=== PATIENT | female | born 1970 | race Caucasian/White ===

== ENCOUNTER 2016-12-05 12:46 | Emergency (ER) | payer MEDICARE, MEDICAID ==
[2016-12-05 12:55] VITALS: BP 180/85
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
[2016-12-05] MEDS ORDERED: HYDROCODONE/ACETAMINOPHEN 5-325 MG TABLET PO ONE ×2 (14:02→16:00)
--- NOTE | 2016-12-05 16:44 | RADIOLOGY REPORT (SQ) ---
EXAM DESCRIPTION: HIP RIGHT AP/LATERAL; FOOT RIGHT COMPLETE; KNEE RIGHT 4 VIEWS COMPLETED DATE/TIME: 12/05/2016 4:35 pm REASON FOR STUDY: pain s/p fall COMPARISON: See below. FINDINGS: Two views right hip: AP pelvis and frog lateral right hip. Compared to 2014. Since that time, status post right hip replacement which looks intact. No pelvic fracture or bone lesion. The re is a portion of an IUD projecting over the pelvis. This probably represents a piece which broke o ff on retrieval. Previously, complete device was noted. Four views right knee: 2006 comparison. Chronic postoperative changes from previous tibial plateau repair, screws in the proximal tibia. No acute fracture. No joint effusion. Normal bone density. Three views right foot: No comparisons. Bones look mildly osteopenic. No displaced fracture. No di slocation, radiopaque foreign body or ankle joint effusion. IMPRESSION: 1. No acute fracture involving the right hip, right knee, right foot. Chronic changes a s above. 2. Foreign body projects over the pelvis which looks like a retained but incomplete portio n of an IUD. TECHNICAL DOCUMENTATION: JOB ID: [id number]
[2016-12-05] MEDS ORDERED: METHOCARBAMOL 500 MG TABLET PO ONE (16:58)
== END 2016-12-05 17:51 | disposition home or self-care (01) ==
LOC: ER 12:46
DX: S83.91XA Sprain of unspecified site of right knee, initial encounter (principal); S70.01XA Contusion of right hip, initial encounter; M25.561 Pain in right knee; W19.XXXA Unspecified fall, initial encounter; Z79.899 Other long term (current) drug therapy; F17.200 Nicotine dependence, unspecified, uncomplicated
CPT/HCPCS: 99283; 73630; 73502; 73564; L1830; A9270

== ENCOUNTER → 2016-12-05 | Outpatient (CLI) | payer MEDICARE, MEDICAID ==
--- NOTE | 2016-12-05 13:10 | RADIOLOGY REPORT (SQ) ---
EXAM DESCRIPTION: MRI LUMBAR SPINE WITHOUT COMPLETED DATE/TIME: 12/05/2016 12:29 pm REASON FOR STUDY: LOW BACK PAIN M54.5 LOW BACK PAIN COMPARISON: 10/29/2014. TECHNIQUE: Sagittal and Axial imaging includes T1, T2, STIR and gradient echo sequences. Coronal T2/ HASTE imaging. LIMITATIONS: None. FINDINGS: VISUALIZED UPPER ABDOMEN: Limited evaluation. No acute or suspicious findings suggested. SEGMENTATION: No transitional anatomy. The lowest well-developed disc space is labeled L5-S1. ALIGNMENT: Anatomic. VERTEBRAE: Intact. BONE MARROW: Normal. No marrow replacement or reactive changes. DISC SIGNAL: Normal. No significant abnormal signal or loss of height. POSTERIOR ELEMENTS: Generally intact. No pars defect evident. HARDWARE: None in the spine. CORD AND CONUS: Normal in size and signal intensity. Conus at the appropriate level. SOFT TISSUES: No aortic aneurysm seen. No bulky retroperitoneal adenopathy or mass. No paraspinal mas s or fluid. L1-L2: No significant spinal stenosis or exit foraminal stenosis. L2-L3: No significant spinal stenosis or exit foraminal stenosis. L3-L4: No significant disc bulge. Mild -moderate facet arthropathy. No significant spinal stenosis or exit foraminal stenosis. L4-L5: Minimal broad-based posterior annular bulge. Moderate facet arthropathy. Minimal spinal sten osis. No significant exit foraminal stenosis. L5-S1: No significant disc bulge. Moderate facet arthropathy. No significant spinal stenosis or exi t foraminal stenosis. LOWER THORACIC: Incompletely imaged. No stenosis seen. SACRUM: Visualized upper sacrum intact. OTHER: No other significant findings. IMPRESSION: STABLE CHRONIC CHANGES PRIMARILY DUE TO FACET ARTHROPATHY. NO SIGNIFICANT STENOSIS. NO IMPINGEMENT. TECHNICAL DOCUMENTATION: JOB ID: [id number]- All Rights Reserved
== END ==
LOC: RAD 11:45
PROVIDERS: ATTEND Neurological Surgery
DX: M54.16 Radiculopathy, lumbar region (principal)
CPT/HCPCS: 99283; 72148; 73630; 73502; 73564; L1830; A9270

== ENCOUNTER → 2017-05-24 | Day surgery (SDC) | payer MEDICARE, MEDICAID ==
[~2017-05-24] MED LIST: BUPIVACAINE HCL 0.5 % INJ/PF 30 ML SDV ONE; LIDOCAINE 1% INJ-PF (10 MG/ML) 30 ML SDV ONE; METHYLPREDNISOLONE ACETATE INJ 40 MG/1 ML ML ONE
[2017-05-24 14:53] LABS: FLUID APPEARANCE HAZY; FLUID COLOR LIGHT YELLOW; FLUID TYPE SYNOVIAL; FLUID VISCOSITY MODERATELY VISCOUS
--- NOTE | 2017-05-24 18:15 | RADIOLOGY REPORT (SQ) ---
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 TECHNIQUE: Fluoroscopic guided right hip aspiration. LIMITATIONS: None. PROCEDURE: After written consent and assessment were obtained, the patient was brought into the fluo roscopy room and placed supine on the table. The patient's right inguinal region was prepped in a st erile fashion and an entry site over the right hip was selected under live fluoroscopic guidance. The entry site was anesthetized with 6 mL of 1% lidocaine. A 22 gauge spinal needle was used to access the right hip joint. There is aspiration of 3 mL of clear yellow synovial fluid, sent for testing as per Dr. Huertas. The needle was removed and a sterile bandage was placed of the site. Specimens we re sent to the lab for testing. A fluoroscopic spot image was saved to PACS confirming right hip nee dle placement. Patient has a right hip replacement with acetabular component anchored with a single screw. FINDINGS: Right hip aspiration under fluoroscopic guidance yielded 3 mL of clear yellow synovial flu id, sent for testing as per the ordering physician. No immediate complications. IMPRESSION: Right hip aspiration under fluoroscopic guidance yielded 3 mL of clear yellow synovial f luid, sent for testing as per the ordering physician. COMMENT: Patient medication list reviewed: Yes- Quality ID# [id number]:Eligible professional attests to doc umenting in the medical record they obtained, updated, or reviewed the patient's current medications. . Quality ID [id number]: Final reports for procedures using fluoroscopy that document radiation exposure blu jesús, or exposure time and number of fluorographic images (if radiation exposure indices are not avail able) TECHNICAL DOCUMENTATION: JOB ID: [id number] [employer]- All Rights Reserved
== END ==
LOC: RAD 12:36
PROVIDERS: ATTEND Specialist
PROC: 0S993ZZ Drainage of Right Hip Joint, Percutaneous Approach (ICD-10-PCS; principal; 2017-05-24)
DX: Z96.641 Presence of right artificial hip joint (principal)
CPT/HCPCS: 87205; 87070; 89050; 87075; 20610; 77002; J3490; J1020

== ENCOUNTER 2017-06-15 18:02 | Emergency (ER) | payer MEDICARE, MEDICAID ==
[2017-06-15] MEDS ORDERED: ASPIRIN 81 MG TABLET, CHEWABLE PO ONE (18:03)
[2017-06-15 18:13] LABS: ABSOLUTE BASOPHILS # (AUTO) 0.1 10^3/uL (0.0-0.2); ABSOLUTE EOSINOPHILS # (AUTO) 0.1 10^3/uL (0.0-0.6); ABSOLUTE LYMPHOCYTES (AUTO) 2.4 10^3/uL (0.5-4.7); ABSOLUTE MONOCYTES (AUTO) 0.9 10^3/uL (0.1-1.4); ABSOLUTE NEUT (AUTO) 7.6 10^3/uL (1.7-8.2); BASOPHILS % (AUTO) 1.1 % (0-2); HEMATOCRIT 31.9 % (36.0-47.0); HEMOGLOBIN 10.1 g/dL (12.0-15.5); LYMPHOCYTES % (AUTO) 21.7 % (13-45); MEAN CORPUSCULAR HEMOGLOBIN 24.5 pg (27.0-33.4); MEAN CORPUSCULAR HGB CONC 31.7 g/dL (32.0-36.0); MEAN CORPUSCULAR VOLUME 77 fl (80-97); MONOCYTES % (AUTO) 8.3 % (3-13); PLATELET COUNT 481 10^3/uL (150-450); RED BLOOD COUNT 4.14 10^6/uL (3.72-5.28); RED CELL DISTRIBUTION WIDTH 18.5 % (11.5-14.0); SEGMENTED NEUTROPHILS % (AUTO) 67.9 % (42-78); TOTAL CELLS COUNTED % (AUTO) 100 %; WHITE BLOOD COUNT 11.2 10^3/uL (4.0-10.5)
[2017-06-15 18:33] LABS: ALANINE AMINOTRANSFERASE 21 U/L (9-52); ALBUMIN 3.8 g/dL (3.5-5.0); ALKALINE PHOSPHATASE 67 U/L (38-126); ANION GAP 10 (5-19); ASPARTATE AMINO TRANSFERASE 18 U/L (14-36); BILIRUBIN,DIRECT 0.6 mg/dL (0.0-0.4); BILIRUBIN,TOTAL 0.6 mg/dL (0.2-1.3); BLOOD UREA NITROGEN 7 mg/dL (7-20); CALCIUM 9.4 mg/dL (8.4-10.2); CARBON DIOXIDE 19 mmol/L (22-30); CHLORIDE 109 mmol/L (98-107); CREATINE KINASE 75 U/L (30-135); GLUCOSE 84 mg/dL (75-110); POTASSIUM 4.7 mmol/L (3.6-5.0); SODIUM 137.6 mmol/L (137-145); TOTAL PROTEIN 6.7 g/dL (6.3-8.2)
[2017-06-15 18:44] LABS: CREATINE KINASE MB 0.92 ng/mL (<4.55)
[2017-06-15 18:45] LABS: TROPONIN I < 0.012 ng/mL
--- NOTE | 2017-06-15 19:11 | RADIOLOGY REPORT (SQ) ---
EXAM DESCRIPTION: CHEST SINGLE VIEW COMPLETED DATE/TIME: 06/15/2017 6:56 pm REASON FOR STUDY: chest pain COMPARISON: 02/03/2017 EXAM PARAMETERS: NUMBER OF VIEWS: One view. TECHNIQUE: Single frontal radiographic view of the chest acquired. RADIATION DOSE: NA LIMITATIONS: None. FINDINGS: LUNGS AND PLEURA: No opacities, masses or pneumothorax. No pleural effusion. MEDIASTINUM AND HILAR STRUCTURES: No masses. Contour normal. HEART AND VASCULAR STRUCTURES: Heart normal in size. Normal vasculature. BONES: No acute findings. HARDWARE: None in the chest. OTHER: No other significant finding. IMPRESSION: NO ACUTE RADIOGRAPHIC FINDING IN THE CHEST. TECHNICAL DOCUMENTATION: JOB ID: [id number] [employer]- All Rights Reserved Reading location - IP/workstation name: [email or web address]
[2017-06-15] MEDS ORDERED: NORMAL SALINE 1000 ML 1,000 ML IV ONE ×2 (19:28→19:42)
[2017-06-15] MEDS ORDERED: LORAZEPAM INJ 2 MG/1 ML VIAL IV ONE (19:42)
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
--- NOTE | 2017-06-15 19:57 | EKG REPORT ---
SEVERITY:- ABNORMAL ECG - SINUS TACHYCARDIA NONSPECIFIC T ABNORMALITIES, INFERIOR LEADS : Confirmed by: Ismael Thompson MD 15-Jun-2017 19:57:04
[2017-06-15] MEDS ORDERED: FENTANYL CITRATE INJ/PF 100 MCG/2 ML AMPUL IV ONE (20:16)
[2017-06-15] MEDS ORDERED: ONDANSETRON HCL INJ/PF 4 MG/2 ML SDV IV ONE (20:17)
--- NOTE | 2017-06-15 22:30 | RADIOLOGY REPORT (SQ) ---
EXAM DESCRIPTION: CTA CHEST COMPLETED DATE/TIME: 06/15/2017 9:46 pm REASON FOR STUDY: chest pain, tachycardia, elevated heart rate COMPARISON: Chest radiograph 06/15/2017 TECHNIQUE: CT scan of the chest performed using helical scanning technique with dynamic intravenous contrast injection. Images reviewed with lung, soft tissue and bone windows. Reconstructed coronal and sagittal MPR images reviewed. Additional 3 dimensional post-processing performed to develop Maximal Intensity Projection images ([place] P). All images stored on PACS. All CT scanners at this facility use dose modulation, iterative reconstruction, and/or weight based d osing when appropriate to reduce radiation dose to as low as reasonably achievable (ALARA). [facility]: Dose Right [facility]: CareDose [facility]: Dose Right [facility]: Teradose 4D [facility]: Company CONTRAST TYPE AND DOSE: contrast/concentration: Isovue 370.00 mg/ml; Total Contrast Delivered: 100.0 ml; Total Saline Delivered: 40.0 ml Contrast bolus optimized for the pulmonary arteries. Not diagnostic for the aorta. RENAL FUNCTION: BUN 7 creatinine 0.7 RADIATION DOSE: CT Rad equipment meets quality standard of care and radiation dose reduction techniq ues were employed. CTDIvol: 4.7 - 18.8 mGy. DLP: 547 mGy-cm. . LIMITATIONS: None. FINDINGS: LUNGS AND PLEURA: There are 2 contiguous pleural opacities in the left upper lobe anterior ly. The more cephalad measures 17 mm at the pleural surface. The large measures 25 mm. AORTA AND GREAT VESSELS: No aneurysm. Contrast bolus not optimized for the aorta. HEART: No pericardial effusion. No significant coronary artery calcifications. PULMONARY ARTERIES: No emboli visualized in the main pulmonary arteries or the segmental branches. HILAR AND MEDIASTINAL STRUCTURES: No identified masses or abnormal nodes. HARDWARE: None in the chest. UPPER ABDOMEN: No significant findings. Limited exam. THYROID AND OTHER SOFT TISSUES: No masses. No adenopathy. BONES: No acute or significant finding. 3D MIPS: Confirm above findings. OTHER: No other significant finding. IMPRESSION: 1. There is no evidence of pulmonary embolus. 2. There are 2 areas of opacity in the left upper lobe anteriorly contiguous with the pleural surfac e. These may represent limited areas of consolidation. Neoplasm cannot be excluded. COMMENT: Quality ID # [id number]: Final reports with documentation of one or more dose reduction techniques (e.g., Automated exposure control, adjustment of the mA and/or kV according to patient size, use of iterative reconstruction technique) TECHNICAL DOCUMENTATION: JOB ID: [id number] [employer]- All Rights Reserved Reading location - IP/workstation name: [email or web address]
[2017-06-15] MEDS ORDERED: LEVOFLOXACIN 750 MG TABLET PO ONE (23:02)
[2017-06-15] MEDS ORDERED: MORPHINE SULFATE IR 15 MG TABLET PO ONE (23:02)
[2017-06-15 23:26] VITALS: BP 149/83
== END 2017-06-15 23:30 | disposition home or self-care (01) ==
LOC: ER 18:02
DX: R07.9 Chest pain, unspecified (principal); F17.200 Nicotine dependence, unspecified, uncomplicated; F41.9 Anxiety disorder, unspecified; I50.9 Heart failure, unspecified; I25.10 Atherosclerotic heart disease of native coronary artery without angina pectoris; E78.00 Pure hypercholesterolemia, unspecified; I10 Essential (primary) hypertension; E11.9 Type 2 diabetes mellitus without complications; I25.2 Old myocardial infarction; Z98.84 Bariatric surgery status; Z90.49 Acquired absence of other specified parts of digestive tract
CPT/HCPCS: 93005; 99285; 96361; 96374; 96375; 36415; 82553; 82550; 85025; 80053; 84484; 85379; 71045; 71275; 93010; J3010; J2405; J7030; A9270 ×2

== ENCOUNTER 2017-06-24 14:45 | Emergency (ER) | payer MEDICARE ==
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
[2017-06-24 16:27] VITALS: BP 125/85
--- NOTE | 2017-06-24 21:56 | EKG REPORT ---
SEVERITY:- NORMAL ECG - SINUS RHYTHM : Confirmed by: Hammad Chapa 24-Jun-2017 21:56:09
== END 2017-06-24 16:26 | disposition home or self-care (01) ==
LOC: ER 14:45
DX: R07.9 Chest pain, unspecified (principal); F17.200 Nicotine dependence, unspecified, uncomplicated; I50.9 Heart failure, unspecified; I25.10 Atherosclerotic heart disease of native coronary artery without angina pectoris; E78.00 Pure hypercholesterolemia, unspecified; I10 Essential (primary) hypertension; E11.9 Type 2 diabetes mellitus without complications; I25.2 Old myocardial infarction; Z98.84 Bariatric surgery status
CPT/HCPCS: 93005; 93010; 99284

== ENCOUNTER → 2017-06-24 | Outpatient (CLI) | payer MEDICAID, MEDICARE ==
--- NOTE | 2017-06-24 16:37 | RADIOLOGY REPORT (SQ) ---
EXAM DESCRIPTION: CT CHEST WITH COMPLETED DATE/TIME: 06/24/2017 2:28 pm REASON FOR STUDY: LUNG MASS (R91.8) R91.8 OTHER NONSPECIFIC ABNORMAL FINDING OF LUNG FIELD COMPARISON: 06/15/2017 TECHNIQUE: CT scan of the chest performed using helical scanning technique with dynamic intravenous contrast injection. Images reviewed with lung, soft tissue and bone windows. Reconstructed coronal and sagittal MPR images reviewed. All images stored on PACS. All CT scanners at this facility use dose modulation, iterative reconstruction, and/or weight based d osing when appropriate to reduce radiation dose to as low as reasonably achievable (ALARA). [facility]: Dose Right [facility]: CareDose [facility]: Dose Right [facility]: Teradose 4D [facility]: [employer] CONTRAST TYPE AND DOSE: contrast/concentration: Isovue 370.00 mg/ml; Total Contrast Delivered: 80.0 ml; Total Saline Delivered: 55.0 ml RENAL FUNCTION: BUN 11 creatinine 0.76 RADIATION DOSE: CT Rad equipment meets quality standard of care and radiation dose reduction techniq ues were employed. CTDIvol: 17.4 mGy. DLP: 649 mGy-cm. . LIMITATIONS: None. FINDINGS: LUNGS AND PLEURA: The pleura based opacities seen in the left upper lobe anteriorly on the earlier study from June 15 are less prominent currently, but there is residual opacification pres ent. No other infiltrates or masses are seen. HILAR AND MEDIASTINAL STRUCTURES: No identified masses or abnormal nodes. HEART AND VASCULAR STRUCTURES: No aneurysm or dissection. No central pulmonary emboli. No pericardi al effusion. HARDWARE: None in the chest. UPPER ABDOMEN: No significant findings. Limited exam. THYROID AND OTHER SOFT TISSUES: No masses. No adenopathy. BONES: No significant finding. OTHER: No other significant finding. IMPRESSION: There is improvement of the pleural densities present on the earlier study, suggesting a n inflammatory/ infectious etiology. Follow-up as clinically indicated. TECHNICAL DOCUMENTATION: JOB ID: [id number] Quality ID # [id number]: Final reports with documentation of one or more dose reduction techniques (e.g., Au tomated exposure control, adjustment of the mA and/or kV according to patient size, use of iterative reconstruction technique) 2010 [employer]- All Rights Reserved Reading location - IP/workstation name: [email or web address]
== END ==
LOC: RAD 13:32
PROVIDERS: ATTEND Physician Assistant Medical
DX: R91.8 Other nonspecific abnormal finding of lung field (principal)
CPT/HCPCS: 71260

== ENCOUNTER 2017-08-07 22:32 | Emergency (ER) | payer MEDICARE, MEDICAID ==
[2017-08-07] MEDS ORDERED: ASPIRIN 81 MG TABLET, CHEWABLE PO ONE (22:35)
--- NOTE | 2017-08-07 23:16 | RADIOLOGY REPORT (SQ) ---
EXAM DESCRIPTION: CHEST SINGLE VIEW COMPLETED DATE/TIME: 08/07/2017 11:08 pm REASON FOR STUDY: chest pain COMPARISON: In June 2012 EXAM PARAMETERS: NUMBER OF VIEWS: One view. TECHNIQUE: Single frontal radiographic view of the chest acquired. RADIATION DOSE: NA LIMITATIONS: None. FINDINGS: LUNGS AND PLEURA: No opacities, masses or pneumothorax. No pleural effusion. MEDIASTINUM AND HILAR STRUCTURES: No masses. Contour normal. HEART AND VASCULAR STRUCTURES: Heart normal in size. Normal vasculature. BONES: No acute findings. HARDWARE: None in the chest. OTHER: No other significant finding. IMPRESSION: NO ACUTE RADIOGRAPHIC FINDING IN THE CHEST. TECHNICAL DOCUMENTATION: JOB ID: [id number] [employer]- All Rights Reserved Reading location - IP/workstation name: [email or web address]
[2017-08-07] MEDS ORDERED: LIDOCAINE 5% (700 MG) TRANSDERMAL ADH..PATCH TP ONE (23:48)
[2017-08-07] MEDS ORDERED: KETOROLAC TROMETHAMINE INJ/PF 30 MG/1 ML SDV IV ONE (23:57)
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
[2017-08-08 00:39] LABS: ABSOLUTE EOSINOPHILS # (AUTO) 0.2 10^3/uL (0.0-0.6); ABSOLUTE LYMPHOCYTES (AUTO) 2.7 10^3/uL (0.5-4.7); ABSOLUTE MONOCYTES (AUTO) 0.5 10^3/uL (0.1-1.4); ABSOLUTE NEUT (AUTO) 3.8 10^3/uL (1.7-8.2); BASOPHILS % (AUTO) 0.5 % (0-2); EOSINOPHILS % (AUTO) 2.7 % (0-6); HEMATOCRIT 30.5 % (36.0-47.0); HEMOGLOBIN 9.8 g/dL (12.0-15.5); LYMPHOCYTES % (AUTO) 37.9 % (13-45); MEAN CORPUSCULAR HGB CONC 32.1 g/dL (32.0-36.0); MEAN CORPUSCULAR VOLUME 78 fl (80-97); MONOCYTES % (AUTO) 6.8 % (3-13); PLATELET COUNT 515 10^3/uL (150-450); RED BLOOD COUNT 3.92 10^6/uL (3.72-5.28); RED CELL DISTRIBUTION WIDTH 21.2 % (11.5-14.0); SEGMENTED NEUTROPHILS % (AUTO) 52.1 % (42-78); TOTAL CELLS COUNTED % (AUTO) 100 %; WHITE BLOOD COUNT 7.3 10^3/uL (4.0-10.5)
[2017-08-08 00:52] LABS: ALANINE AMINOTRANSFERASE 24 U/L (9-52); ALBUMIN 3.6 g/dL (3.5-5.0); ALKALINE PHOSPHATASE 70 U/L (38-126); ANION GAP 14 (5-19); ASPARTATE AMINO TRANSFERASE 17 U/L (14-36); BILIRUBIN,DIRECT 0.3 mg/dL (0.0-0.4); BILIRUBIN,TOTAL 0.3 mg/dL (0.2-1.3); BLOOD UREA NITROGEN 9 mg/dL (7-20); CALCIUM 9.6 mg/dL (8.4-10.2); CARBON DIOXIDE 19 mmol/L (22-30); CHLORIDE 112 mmol/L (98-107); GLUCOSE 87 mg/dL (75-110); POTASSIUM 4.5 mmol/L (3.6-5.0); SODIUM 144.8 mmol/L (137-145); TOTAL PROTEIN 6.3 g/dL (6.3-8.2)
[2017-08-08 02:22] VITALS: BP 132/73
--- NOTE | 2017-08-08 10:30 | EKG REPORT ---
SEVERITY:- BORDERLINE ECG - SINUS RHYTHM BORDERLINE T WAVE ABNORMALITIES : Confirmed by: Hammad Chapa 08-Aug-2017 10:29:01
== END 2017-08-08 02:00 | disposition home or self-care (01) ==
LOC: ER 22:32
DX: M25.552 Pain in left hip (principal); G89.4 Chronic pain syndrome; R07.9 Chest pain, unspecified; F41.9 Anxiety disorder, unspecified; I25.10 Atherosclerotic heart disease of native coronary artery without angina pectoris; I10 Essential (primary) hypertension; I25.2 Old myocardial infarction; E11.9 Type 2 diabetes mellitus without complications; Z79.899 Other long term (current) drug therapy; F17.200 Nicotine dependence, unspecified, uncomplicated
CPT/HCPCS: 93005; 99284; 36415; 85025; 80053; 84484; 71045; 93010; J1885

== ENCOUNTER 2017-08-14 09:50 | Inpatient (IN) | payer MEDICARE, MEDICAID ==
[2017-08-14] MEDS ORDERED: KETOROLAC TROMETHAMINE 60 MG/2 ML SDV IM ONE (10:25)
[2017-08-14] MEDS ORDERED: DEXAMETHASONE SOD PHOS INJ 10 MG/1 ML VIAL IM ONE (10:25)
[2017-08-14] MEDS ORDERED: CLONAZEPAM 1 MG TABLET PO ONE (10:25)
[2017-08-14] MEDS ORDERED: LIDOCAINE 5% (700 MG) TRANSDERMAL ADH..PATCH TP ONE (10:26)
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
[2017-08-14 10:49] LABS: ABSOLUTE BASOPHILS # (AUTO) 0.1 10^3/uL (0.0-0.2); ABSOLUTE EOSINOPHILS # (AUTO) 0.3 10^3/uL (0.0-0.6); ABSOLUTE LYMPHOCYTES (AUTO) 2.2 10^3/uL (0.5-4.7); ABSOLUTE MONOCYTES (AUTO) 0.6 10^3/uL (0.1-1.4); ABSOLUTE NEUT (AUTO) 3.8 10^3/uL (1.7-8.2); BASOPHILS % (AUTO) 1.3 % (0-2); EOSINOPHILS % (AUTO) 4.6 % (0-6); HEMATOCRIT 32.8 % (36.0-47.0); HEMOGLOBIN 10.5 g/dL (12.0-15.5); LYMPHOCYTES % (AUTO) 31.6 % (13-45); MEAN CORPUSCULAR HEMOGLOBIN 25.3 pg (27.0-33.4); MEAN CORPUSCULAR VOLUME 79 fl (80-97); MONOCYTES % (AUTO) 8.7 % (3-13); PLATELET COUNT 442 10^3/uL (150-450); RED BLOOD COUNT 4.14 10^6/uL (3.72-5.28); RED CELL DISTRIBUTION WIDTH 22.1 % (11.5-14.0); SEGMENTED NEUTROPHILS % (AUTO) 53.8 % (42-78); TOTAL CELLS COUNTED % (AUTO) 100 %
[2017-08-14 10:51] LABS: ALANINE AMINOTRANSFERASE 25 U/L (9-52); ALBUMIN 3.8 g/dL (3.5-5.0); ALKALINE PHOSPHATASE 77 U/L (38-126); ANION GAP 18 (5-19); ASPARTATE AMINO TRANSFERASE 15 U/L (14-36); BILIRUBIN,DIRECT 0.3 mg/dL (0.0-0.4); BILIRUBIN,TOTAL 0.3 mg/dL (0.2-1.3); BLOOD UREA NITROGEN 6 mg/dL (7-20); CALCIUM 9.7 mg/dL (8.4-10.2); CARBON DIOXIDE 18 mmol/L (22-30); CHLORIDE 107 mmol/L (98-107); GLUCOSE 73 mg/dL (75-110); POTASSIUM 4.6 mmol/L (3.6-5.0); SALICYLATE 1.8 mg/dL (2.0-20.0); SODIUM 142.6 mmol/L (137-145); TOTAL PROTEIN 6.6 g/dL (6.3-8.2)
[2017-08-14 10:56] LABS: ACETAMINOPHEN < 10 ug/mL (10-30); ALCOHOL < 10 mg/dL (NONE DETECTED)
--- NOTE | 2017-08-14 11:43 | RADIOLOGY REPORT (SQ) ---
EXAM DESCRIPTION: HIP LEFT AP/LATERAL COMPLETED DATE/TIME: 08/14/2017 11:33 am REASON FOR STUDY: pain COMPARISON: None. NUMBER OF VIEWS: Two views. TECHNIQUE: AP pelvis and additional frog-leg view of the left hip. LIMITATIONS: None. FINDINGS: MINERALIZATION: Normal. LEFT HIP: Lateral subluxation/ dislocation of the femoral head with chronic deformity and fragmentati on. Bony fragments in the acetabular fossa suggesting old fracture. RIGHT HIP: Total hip replacement. PUBIS AND ISCHIUM: No fracture. PELVIS: No fracture. SACRUM: No fracture or dislocation. No worrisome bone lesions. LOWER LUMBAR SPINE: No fracture or dislocation. No worrisome bone lesions. No significant disc disea se. SOFT TISSUES: No findings. OTHER: No other significant finding. IMPRESSION: Severe end-stage degenerative changes with chronic lateral subluxation/dislocation of th e femoral head, fragmentation, extensive cystic change of the femoral head, and bony fragment suggest ing prior fracture within the acetabulum. TECHNICAL DOCUMENTATION: JOB ID: [id number] 1989 [employer]- All Rights Reserved Reading location - IP/workstation name: [email or web address]
[2017-08-14] MEDS ORDERED: HYDROMORPHONE HCL INJ/PF 2 MG/ML AMPULE IV ONE (11:56)
--- NOTE | 2017-08-14 13:30 | PSYCHOLOGICAL NOTE ---
Psych Note - Psych Note Psych Note: Reason for consult: Suicidal ideation Contact Permissions: Patient's son Farhan Humphrey and patient's ex Timothy Humphrey [phone] Patient is a 47-year-old female. Patient reports that she made the comments about not wanting to live anymore because of the physical pain she is experiencing. Patient reports what she meant was that she would rather have a new body and not be in the body that she is in because she is experiencing a lot of pain. Patient reports that she currently has anxiety and is prescribed Klonopin 1 mg 4 times a day and prior to that in 2013 she was prescribed Xanax but no longer takes those. Patient reports the provider who takes care of her psychiatric needs are Dr. Maradiaga. Patient reports that she does not have a gun in the home. Patient reports that all the comments she has made are related to her pain. Patient reports that 3 years ago she tried to OD with alcohol and any kind of pills because she was not in the right state of mind. Patient reports that her parents from cancer. Patient reports that if all of her medical needs are met then she would not feel like dying. Patient reports that the surgeon would not perform the hip replacement last week and they allowed her to go a week in pain so she was frustrated and made those comments. Patient reports that she felt people thought she was pill seeking but she cannot fake a dislocated hip. Patient reports she has a social sciences chair that is helping her as she lives alone with 2 dogs and they are being checked in on by the social sciences chair. Patient reports that she was hospitalized by [facility] in 2006 for opiate withdrawal due to abruptly stopping opiate use. Clinician's nurse practitioner stated patient does have a small fracture and dislocated hip and will receive surgery in the OR tomorrow 08/15/2017. Diagnosis: Per history 300.00 (F41.9) Unspecified Anxiety Disorder ( reported by patient) Impression/Plan: Patient is psychiatrically cleared. Recommendation to follow up with patient's provider for psychiatric needs. Please re-consult if needed. Clinician observed patient is currently experiencing pain due to having medical needs such as her fractured hip and dislocation of the hip ( reported by medical staff). Clinician observed patient does not have a intent, plan, or access regarding suicidal ideation. Comments were made out of frustration. Attending physician in agreement with disposition and plan. Consulted with Dr. Garrett regarding the management and care of patient.
--- NOTE | 2017-08-14 13:39 | RADIOLOGY REPORT (SQ) ---
EXAM DESCRIPTION: CHEST SINGLE VIEW COMPLETED DATE/TIME: 08/14/2017 1:19 pm REASON FOR STUDY: admission, pre op COMPARISON: 08/07/2017 NUMBER OF VIEWS: One view. TECHNIQUE: Single frontal radiographic view of the chest acquired. LIMITATIONS: None. FINDINGS: LUNGS AND PLEURA: No opacities, masses or pneumothorax. No pleural effusion. MEDIASTINUM AND HILAR STRUCTURES: No masses. Contour normal. HEART AND VASCULAR STRUCTURES: Heart enlarged without failure. Normal vasculature. BONES: No acute findings. HARDWARE: None in the chest. OTHER: No other significant finding. IMPRESSION: HEART ENLARGED WITHOUT FAILURE. NO OTHER SIGNIFICANT RADIOGRAPHIC FINDING IN THE CHEST. TECHNICAL DOCUMENTATION: JOB ID: [id number] [employer]- All Rights Reserved Reading location - IP/workstation name: [email or web address]
[2017-08-14] MEDS: MORPHINE SULFATE 10 MG/ML INJ IV PRN ×4 (14:55→23:09)
[2017-08-14] MEDS: ONDANSETRON HCL INJ/PF 4 MG/2 ML SDV IV PRN ×2 (14:56→17:33)
--- NOTE | 2017-08-14 15:54 | EKG REPORT ---
SEVERITY:- BORDERLINE ECG - SINUS RHYTHM BORDERLINE T ABNORMALITIES, DIFFUSE LEADS : Confirmed by: Ismael Thompson MD 14-Aug-2017 15:53:38
[2017-08-14 16:02] LABS: APPEARANCE,URINE CLEAR; BILIRUBIN,URINE NEGATIVE (NEGATIVE); COLOR,URINE YELLOW; GLUCOSE, URINE NEGATIVE (NEGATIVE); KETONES,URINE 80 mg/dL (NEGATIVE); LEUKOCYTE ESTERASE,URINE NEGATIVE (NEGATIVE); NITRITE,URINE NEGATIVE (NEGATIVE); PROTEIN,URINE NEGATIVE (NEGATIVE); URINE SPECIFIC GRAVITY 1.021
[2017-08-14 16:17] LABS: URINE AMPHETAMINES SCREEN NEGATIVE; URINE BARBITURATES SCREEN NEGATIVE; URINE COCAINE SCREEN NEGATIVE; URINE METHADONE SCREEN NEGATIVE; URINE PHENCYCLIDINE SCREEN NEGATIVE
[2017-08-14 16:22] LABS: URINE BENZODIAZEPINES SCREEN UNCONFIRMED POSITIVE; URINE MARIJUANA (THC) SCREEN UNCONFIRMED POSITIVE
--- NOTE | 2017-08-14 17:17 | PDOC H&P ---
History of Present Illness Admission Date/PCP: 08/14/17 13:14 History of Present Illness: JOSUÉ MARIN is a 47 year old female The patient is a 47-year-old white female with a complicated past medical history including myocardial infarction 2016, questionable diagnosis of pulmonary embolism, questionable diagnosis of pulmonary masses, pain management issues, and a 2 week history of progressive left hip pain and functional disability. Patient was to being taken care of by emerge or so in [place]. It is unclear to me why she presented to the [place] emergency room rather than being transported to [place] to be taken care by Dr. Huertas. Regardless she presents the emergency room unable to bear weight. She is admitted for further evaluation with an anticipated orthopedic procedure to alleviate her left hip pain. Past Medical History Cardiac Medical History: Reports: Congestive Heart Failure, Coronary Artery Disease, Myocardial Infarction, Hyperlipidema, Hypertension Pulmonary Medical History: Reports: Bronchitis, Pneumonia Neurological Medical History: Reports: Migraine, Seizures Endocrine Medical History: Reports: Diabetes Mellitus Type 2 GI Medical History: Reports: Diverticulitis, Gastroesophageal Reflux Disease Musculoskeltal Medical History: Reports: Arthritis Psychiatric Medical History: Reports: Depression, Post Traumatic Stress Disorder , Substance Abuse Hematology: Reports: Anemia Past Surgical History Past Surgical History: Reports: Cardiac Catheterization - Feb 2010-stent, Feb 2011-told 2 vessels had narrowing, no stent, Cholecystectomy, Coronary Stent - February,, Gastric Bypass Surgery, Herniorrhaphy, Orthopedic Surgery - Bilat knee fx. right hip. Social History Information Source: Patient, [facility] Records Smoking Status: Current Every Day Smoker Frequency of Alcohol Use: None Hx Recreational Drug Use: No Drugs: Marijuana Hx Prescription Drug Abuse: No Family History Family History: CAD Parental Family History Reviewed: No Children Family History Reviewed: No Sibling(s) Family History Reviewed.: No Medication/Allergy Home Medications: Clonazepam [Klonopin 1 mg Tablet] 1 mg PO TID 02/03/17 Albuterol Sulfate [Ventolin HFA MDI 18 GM] 2 puff IH QID 08/14/17 Diclofenac Sodium [Voltaren 50 Mg Tablet.Dr] 50 mg PO QIDP PRN 08/14/17 Gabapentin [Neurontin 300 mg Capsule] 1,200 mg PO TID 08/14/17 Ipratropium/Albuterol Sulfate [Combivent Respimat 4 gm Mdi] 1 puff IH BID Sertraline HCl [Zoloft 50 mg Tablet] 50 mg PO DAILY 08/14/17 Allergies/Adverse Reactions: Antihistamines - Ethylenediamine Allergy (Intermediate, Verified 02/03/17 12:03) panic attack diphenhydramine HCl [From Benadryl] Adverse Reaction (Intermediate, Verified 04/21 12:03) "Keeps me up" Review of Systems All systems: as per H Physical Exam Vital Signs: Intake & Output 08/13/17 08/14/17 08/15/17 06:59 06:59 06:59 Weight 104.5 kg Physical Exam: The patient is an overweight middle-aged white female who is quite alert and interactive lying on ER gurney. Left lower extremity shortened and externally rotated. Passive range of motion lower extremities associated excruciating pain. Distal neurovascular examination is intact. General appearance: PRESENT: obese, severe distress Head exam: PRESENT: normocephalic Respiratory exam: PRESENT: unlabored Cardiovascular exam: PRESENT: RRR Pulses: PRESENT: +1 pedal pulses bilateral Vascular exam: PRESENT: normal capillary refill GI/Abdominal exam: PRESENT: soft Rectal exam: PRESENT: deferred Extremities exam: PRESENT: other - Left lower extremity shortened and externally rotated. Skin exam: PRESENT: dry, intact, warm. ABSENT: cyanosis, rash Results Laboratory Results: 08/14/17 15:42 Urine Color YELLOW Urine Appearance CLEAR Urine pH 6.0 Ur Specific [place] 1.021 Urine Protein NEGATIVE Urine Glucose (UA) NEGATIVE Urine Ketones 80 H Urine Blood NEGATIVE Urine Nitrite NEGATIVE Ur Leukocyte Esterase NEGATIVE Urine WBC (Auto) 1 Urine RBC (Auto) 0 Impressions: Hip X-Ray 08/14/17 10:29 IMPRESSION: Severe end-stage degenerative changes with chronic lateral subluxation/dislocation of the femoral head, fragmentation, extensive cystic change of the femoral head, and bony fragment suggesting prior fracture within the acetabulum. Chest X-Ray 08/14/17 12:51 IMPRESSION: HEART ENLARGED WITHOUT FAILURE. NO OTHER SIGNIFICANT RADIOGRAPHIC FINDING IN THE CHEST. Status: Image reviewed by me - X-ray of the pelvis and left hip demonstrate Ficot stage IV avascular necrosis Assessment & Plan - Diagnosis (1) Avascular necrosis of bone of left hip Is this a current diagnosis for this admission?: Yes Plan: 47-year-old female status post right hip arthroplasty in the past presumably for avascular necrosis now with left hip arthroplasty and associated pain and functional disability. Treatment for this would be hip replacement. The patient has a myriad of comorbidities and risk factors for surgery. Tentative plan will be to obtain hospitalist, pain management, cardiology consults and then reassess the patient's candidacy for surgery. - Time Time Spent: 50 to 70 Minutes Critical Time spent with patient: 15-24 minutes Anticipated discharge: Other Within: Other
[2017-08-14] MEDS ORDERED: NICOTINE 14 MG/24 HR PATCH.TD24 TD PRN (23:59)
[2017-08-15] MEDS: MORPHINE SULFATE 10 MG/ML INJ IV PRN ×8 (02:00→23:58)
[2017-08-15] MEDS: ONDANSETRON HCL INJ/PF 4 MG/2 ML SDV IV PRN (04:04)
--- NOTE | 2017-08-15 06:50 | PDOC PROGRESS REPORT ---
Subjective Progress Note for:: 08/15/17 Reason For Visit: CLOSED FRACTURE OF LEFT HIP,DISLOCATION OF LEFT The patient is a 47-year-old white female with a myriad of medical problems and now admission for left hip pain secondary to a Ficot stage 4 avascular necrosis. Physical Exam Vital Signs: Temp Pulse Resp BP Pulse Ox 36.3 C 81 18 134/70 H 95 08/14/17 23:12 08/14/17 23:12 08/14/17 23:12 08/14/17 23:12 08/14/17 23:12 Intake & Output 08/13/17 08/14/17 08/15/17 06:59 06:59 06:59 Intake Total 200 Output Total 325 Balance -125 Weight 98.9 kg General appearance: PRESENT: no acute distress Respiratory exam: PRESENT: unlabored Cardiovascular exam: PRESENT: RRR Pulses: PRESENT: +1 pedal pulses bilateral Vascular exam: PRESENT: normal capillary refill Results Laboratory Results: 08/14/17 15:42 Urine Color YELLOW Urine Appearance CLEAR Urine pH 6.0 Ur Specific [place] 1.021 Urine Protein NEGATIVE Urine Glucose (UA) NEGATIVE Urine Ketones 80 H Urine Blood NEGATIVE Urine Nitrite NEGATIVE Ur Leukocyte Esterase NEGATIVE Urine WBC (Auto) 1 Urine RBC (Auto) 0 Impressions: Hip X-Ray 08/14/17 10:29 IMPRESSION: Severe end-stage degenerative changes with chronic lateral subluxation/dislocation of the femoral head, fragmentation, extensive cystic change of the femoral head, and bony fragment suggesting prior fracture within the acetabulum. Chest X-Ray 08/14/17 12:51 IMPRESSION: HEART ENLARGED WITHOUT FAILURE. NO OTHER SIGNIFICANT RADIOGRAPHIC FINDING IN THE CHEST. Status: Imported from PACS Assessment & Plan - Diagnosis (1) Avascular necrosis of bone of left hip Is this a current diagnosis for this admission?: Yes Plan: 47-year-old white female status post right hip arthroplasty [facility] in 2014. She now has progressive pain and functional disability secondary to left hip avascular necrosis. Patient indicates a desire to return to [facility] for treatment of her left hip issues. I concur with that and with the need for continuity of care. Tentative plan will be to transfer the patient to [facility] when accepting physician has been identified. - Time Time Spent with patient: 15-24 minutes Anticipated discharge: [facility] Within: Other
[2017-08-15] MEDS ORDERED: CLONAZEPAM 1 MG TABLET PO SCH (10:00)
[2017-08-15] MEDS: CLONAZEPAM 1 MG TABLET PO SCH ×3 (10:47→18:44)
[2017-08-15] MEDS: SERTRALINE HCL 50 MG TABLET PO SCH (10:47)
[2017-08-15] MEDS: GABAPENTIN 300 MG CAPSULE PO SCH ×3 (10:47→18:44)
[2017-08-15] MEDS ORDERED: GLUCAGON,HUMAN RECOMB 1 MG INJ SUBCUT PRN (15:00)
[2017-08-15] MEDS ORDERED: DEXTROSE 50%-WATER 25 GM/50 ML DISP.SYRIN IV PRN ×2 (15:00)
[2017-08-15] MEDS ORDERED: DEXTROSE 40% GEL 15 GM TUBE PO PRN ×2 (15:00)
--- NOTE | 2017-08-15 15:18 | PDOC CONSULTATION ---
Consultation Consult Date: 08/15/17 Attending physician:: LUIS ALBERTO JEAN Consult reason:: Follow-up cardiology care and for cardiology clearance History of Present Illness Admission Date/PCP: 08/14/17 13:14 Patient complains of: Bilateral hip pain History of Present Illness: JOSUÉ MARIN is a 47 year old female with a complicated past medical history including myocardial infarction 2016, questionable diagnosis of pulmonary embolism, questionable diagnosis of pulmonary masses, pain management issues, and a 2 week history of progressive left hip pain and functional disability. Patient was to being taken care of by emerge or so in [place]. It is unclear to me why she presented to the [place] emergency room rather than being transported to [place] to be taken care by Dr. Huertas. Regardless she presents the emergency room unable to bear weight. She is admitted for further evaluation with an anticipated orthopedic procedure to alleviate her left hip pain. Patient denied any chest pain. However she is not very physically active. Patient denies any shortness of breath. Previous cardiac evaluations reviewed. It seems patient did have a nuclear stress test later part of last year which was noted to show no ischemia but a small area of fixed defect. A 2D echocardiogram performed approximately 2 years ago had shown well preserved LVEF. Patient twelve-lead EKG shows sinus rhythm without any acute ST-T wave changes. Past Medical History Cardiac Medical History: Reports: Congestive Heart Failure, Coronary Artery Disease, Myocardial Infarction, Hyperlipidema, Hypertension Pulmonary Medical History: Reports: Bronchitis, Pneumonia Neurological Medical History: Reports: Migraine, Seizures Endocrine Medical History: Reports: Diabetes Mellitus Type 2 GI Medical History: Reports: Diverticulitis, Gastroesophageal Reflux Disease Musculoskeltal Medical History: Reports: Arthritis Psychiatric Medical History: Reports: Depression - anxiety, Post Traumatic Stress Disorder, Substance Abuse Hematology: Reports: Anemia Past Surgical History Past Surgical History: Reports: Cardiac Catheterization - Feb 2010-stent, Feb 2011-told 2 vessels had narrowing, no stent, Cholecystectomy, Coronary Stent - February,, Gastric Bypass Surgery, Herniorrhaphy, Orthopedic Surgery - Bilat knee fx. right hip. Social History Information Source: Patient Smoking Status: Current Every Day Smoker Cigarettes Packs Per Day: 1 Last Time Smoked: t Frequency of Alcohol Use: None Hx Recreational Drug Use: Yes Drugs: Marijuana Hx Prescription Drug Abuse: Yes - Advance Directive Resuscitation Status: Full Code Family History Family History: CAD Parental Family History Reviewed: Yes Children Family History Reviewed: Yes Sibling(s) Family History Reviewed.: Yes Medication/Allergy Home Medications: Clonazepam [Klonopin 1 mg Tablet] 1 mg PO TID 02/03/17 Albuterol Sulfate [Ventolin HFA MDI 18 GM] 2 puff IH QID 08/14/17 Diclofenac Sodium [Voltaren 50 Mg Tablet.Dr] 50 mg PO QIDP PRN 08/14/17 Gabapentin [Neurontin 300 mg Capsule] 1,200 mg PO TID 08/14/17 Ipratropium/Albuterol Sulfate [Combivent Respimat 4 gm Mdi] 1 puff IH BID Sertraline HCl [Zoloft 50 mg Tablet] 50 mg PO DAILY 08/14/17 Allergies/Adverse Reactions: Antihistamines - Ethylenediamine Allergy (Intermediate, Verified 02/03/17 12:03) panic attack diphenhydramine HCl [From Benadryl] Adverse Reaction (Intermediate, Verified 04/21 12:03) "Keeps me up" Review of Systems Review of Systems: Please see history of present illness and past medical history as wall. Constitutional: No fever or chills reported. Head : No recent chronic headaches, recent head injury. Eyes: No recent eye pain, diplopia, redness, discharge, acute visual changes. Ears: No recent chronic ear pain, acute hearing loss, ear discharge. Oral cavity: No recent ulcerations, bleeding, oral cavity discomfort. Neck: No recent acute neck pain reported. Hematologic: No recent easy bruising or bleeding. Lymphatic: No recent lymph node enlargement reported. Cardiovascular system review: See history of present illness. Respiratory system review: No hemoptysis or blood clots in the lungs reported. Mild Shortness of breath on exertion Gastrointestinal system review: Negative for any recent acute hematemesis, melena. Genitourinary system review: No recent acute or chronic hematuria, flank pain, UTI etc. reported. Skin system review: Negative for any recent abnormal bruising, no rash, no pruritus reported. Neurologic: No prior history of strokes, mini strokes, seizure disorder. Psychologic: No history of major psychosis or major depression reported. Musculoskeletal: Minor aches and pains reported. No acute joint swelling reported. Patient describes bilateral hip pain and difficulty with ambulation. Endocrine: No recent polyuria, polydipsia, recent heat or cold intolerance. Physical Exam Vital Signs: Temp Pulse Resp BP Pulse Ox 98.3 F 74 20 110/51 L 94 08/15/17 11:13 08/15/17 11:13 08/15/17 11:13 08/15/17 11:13 08/15/17 11:13 Intake & Output 08/14/17 08/15/17 08/16/17 06:59 06:59 06:59 Intake Total 270 Output Total 325 Balance -55 Weight 98.9 kg Exam: GENERAL: well-nourished and in no acute distress. Alert and oriented x3 HEAD: Atraumatic, normocephalic. EYES: Pupils equal round and reactive to light, extraocular movements intact, sclera anicteric, conjunctiva are normal. ENT: TMs normal, nares patent, oropharynx clear without exudates. Moist mucous membranes. No oral ulcerations or bleeding gums noted NECK: supple without lymphadenopathy. Trachea is central. No cervical or axillary lymphadenopathy noted. Carotids are 2+, JVD WNL LUNGS: Respiration seems nonlabored, no significant accessory muscle action noted. Breath sounds clear to auscultation bilaterally and equal noted. No wheezes rales or rhonchi noted. No significant dullness noted on percussion. CHEST: Palpation of the chest wall shows no significant chest wall tenderness. HEART: [place] INVENTORY CONTROL/SHIPPING RECEIVING, No PSH, 1/6 COCO aortic area, 1/6 pappas systolic murmur mitral area, no rubs, no gallops. ABDOMEN: Soft, no significant tenderness appreciated, normoactive bowel sounds. No guarding, no rebound. No rigidity noted . No masses appreciated. EXTREMITIES: Pedal pulses are 1-2+, no calf tenderness noted. No clubbing or cyanosis. negative pedal edema noted NEUROLOGICAL: Focused neurological exam showed no significant neurologic deficit. Normal speech, no focal weakness appreciated. PSYCH: Normal mood, normal affect. Judgment and insight within normal limits. SKIN: No significant ecchymosis, skin is noted to be warm. MUSCULOSKELETAL EXAM: No significant acute joint swelling noted. Results Laboratory Results: 08/14/17 15:42 Urine Color YELLOW Urine Appearance CLEAR Urine pH 6.0 Ur Specific [place] 1.021 Urine Protein NEGATIVE Urine Glucose (UA) NEGATIVE Urine Ketones 80 H Urine Blood NEGATIVE Urine Nitrite NEGATIVE Ur Leukocyte Esterase NEGATIVE Urine WBC (Auto) 1 Urine RBC (Auto) 0 EKG Comments: Sinus rhythm, no acute ST-T wave changes are noted. Impressions: Hip X-Ray 08/14/17 10:29 IMPRESSION: Severe end-stage degenerative changes with chronic lateral subluxation/dislocation of the femoral head, fragmentation, extensive cystic change of the femoral head, and bony fragment suggesting prior fracture within the acetabulum. Chest X-Ray 08/14/17 12:51 IMPRESSION: HEART ENLARGED WITHOUT FAILURE. NO OTHER SIGNIFICANT RADIOGRAPHIC FINDING IN THE CHEST. Assessment & Plan - Diagnosis (1) CAD (coronary artery disease) Qualifiers: Coronary Disease-Associated Artery/Lesion type: [place] artery [place] vs. transplanted heart: [place] heart Associated angina: angina presence unspecified Qualified Code(s): I25.10 - Atherosclerotic heart disease of [place] coronary artery without angina pectoris Is this a current diagnosis for this admission?: Yes (2) Avascular necrosis of bone of left hip Is this a current diagnosis for this admission?: Yes (3) Dyslipidemia Is this a current diagnosis for this admission?: Yes (4) Hypertension Qualifiers: Hypertension type: essential hypertension Qualified Code(s): I10 - Essential (primary) hypertension Is this a current diagnosis for this admission?: Yes (5) Tobacco abuse Is this a current diagnosis for this admission?: Yes (6) Preoperative cardiovascular examination Is this a current diagnosis for this admission?: Yes - Notes Notes: Coronary artery disease: Patient has known history of coronary artery disease. Patient not very physically active because of bilateral hip problems. Previous cardiac evaluations reviewed. Will start patient on statin therapy and beta- alexei therapy. Prior stress test from February of last year was reviewed. It was noted to be relatively unremarkable. Preoperative cardiovascular examination: Recommend starting patient on statin therapy, beta-alexei therapy. Dyslipidemia: Recommend statin therapy. Hypertension: Blood pressure goal is 135/85 or less. Beta-alexei, RODRIGO inhibitor and angiotensin receptor blockers are preferred agent. Tobacco abuse: Continue with nicotine patch. Patient advised on tobacco cessation. I am also told that patient is likely to be transferred. However if she stays here, will be happy to help with cardiovascular management in the meantime. Dr. Johnson to cover from tomorrow. - Time Time Spent: 30 to 50 Minutes - CODE STATUS was discussed, patient remains full code. Surrogate decision-maker unchanged. Multiple medical problems were addressed. More than 50% of the time spent coordinating care, discussing management plans with involved caregivers. Management plans discussed with involved personnels. Medical decision making was of moderate to high complexity , patient's has multiple comorbidities. Medications reviewed and adjusted accordingly: Yes
[2017-08-15] MEDS: ALBUTEROL SULFATE HFA (90 MCG/PUFF) 8 GM MDI (1 MDI/ER DISP) IH SCH ×3 (15:24→22:48)
[2017-08-15] MEDS: OXYCODONE-ACETAMINOPHEN 5-325 MG TABLET PO PRN ×2 (18:44→22:49)
[2017-08-15] MEDS: OXYCODONE HCL IR 5 MG TABLET PO PRN ×2 (18:44→22:50)
[2017-08-15] MEDS: METOPROLOL SUCCINATE 25 MG TAB.SR.24H PO SCH (21:03)
[2017-08-15] MEDS: ATORVASTATIN CALCIUM 20 MG TABLET PO SCH (21:03)
[2017-08-15] MEDS ORDERED: ALBUTEROL SULFATE HFA (90 MCG/PUFF) 200 PUFF/8.5 GM MDI IH ONE (21:21)
[2017-08-15] MEDS ORDERED: ATORVASTATIN CALCIUM 40 MG TABLET PO SCH (22:00)
[2017-08-16] MEDS: OXYCODONE HCL IR 5 MG TABLET PO PRN ×4 (03:47→17:26)
[2017-08-16] MEDS: OXYCODONE-ACETAMINOPHEN 5-325 MG TABLET PO PRN ×4 (03:48→17:25)
[2017-08-16] MEDS: MORPHINE SULFATE 10 MG/ML INJ IV PRN ×2 (06:12→14:39)
--- NOTE | 2017-08-16 06:50 | PDOC TRANSFER SUMMARY ---
General Admission Date/PCP: 08/14/17 13:14 Admission Date: 08/14/17 Transfer Date: 08/16/17 Accepting Facility: [facility] Resuscitation Status: Full Code - Transfer Diagnosis (1) Avascular necrosis of bone of left hip Is this a current diagnosis for this admission?: Yes - Transfer Medications Home Medications: Clonazepam [Klonopin 1 mg Tablet] 1 mg PO TID 02/03/17 Albuterol Sulfate [Ventolin HFA MDI 18 GM] 2 puff IH QID 08/14/17 Diclofenac Sodium [Voltaren 50 Mg Tablet.Dr] 50 mg PO QIDP PRN 08/14/17 Gabapentin [Neurontin 300 mg Capsule] 1,200 mg PO TID 08/14/17 Ipratropium/Albuterol Sulfate [Combivent Respimat 4 gm Mdi] 1 puff IH BID Sertraline HCl [Zoloft 50 mg Tablet] 50 mg PO DAILY 08/14/17 Transfer Medications: Current Medications Albuterol (Ventolin Hfa 8 Gm Mdi (1 Mdi/Er Disp)) 2 puff IH QID [facility] Stop: 09/14/17 09:59 Last Admin: 08/15/17 22:48 Dose: 2 puff Atorvastatin Calcium (Lipitor 20 Mg Tablet) 20 mg PO QHS [facility] Stop: 09/14/17 21:59 Last Admin: 08/15/17 21:03 Dose: 20 mg Clonazepam (Klonopin 1 Mg Tablet) 0.5 mg PO TID [facility] Stop: 08/22/17 09:59 Last Admin: 08/15/17 18:44 Dose: 0.5 mg Dextrose (Dextrose Inj 50% Syringe (25 Gm/50 Ml)) 12.5 gm IV PRN PRN; Protocol PRN Reason: FOR BG 50-69 IN ALERT PATIENT Stop: 09/14/17 14:59 Dextrose (Dextrose Inj 50% Syringe (25 Gm/50 Ml)) 25 gm IV PRN PRN; Protocol PRN Reason: See Label Comments Stop: 09/14/17 14:59 Gabapentin (Neurontin 300 Mg Capsule) 1,200 mg PO TID [facility] Stop: 09/14/17 09:59 Last Admin: 08/15/17 18:44 Dose: 1,200 mg Glucagon (Glucagen Inj 1 Mg Vial) 1 mg SUBCUT PRN PRN; Protocol PRN Reason: Evaluate for BG < 70 Stop: 09/14/17 14:59 Glucose (Glutose 40% Gel 15 Gm Tube) 15 gm PO PRN PRN; Protocol PRN Reason: For BG 50-69 in Alert Patient Stop: 09/14/17 14:59 Glucose (Glutose 40% Gel 15 Gm Tube) 30 gm PO PRN PRN; Protocol PRN Reason: FOR BG < 50 IN ALERT PATIENT Stop: 09/14/17 14:59 Metoprolol Succinate (Toprol Xl 25 Mg Tab.Sr) 12.5 mg PO Q12 BIMAL Stop: 09/14/17 21:59 Last Admin: 08/15/17 21:03 Dose: 12.5 mg Morphine Sulfate (Morphine 10 Mg/Ml Inj) 2 mg IV Q6HP PRN PRN Reason: FOR PAIN Stop: 08/21/17 14:47 Last Admin: 08/16/17 06:12 Dose: 2 mg Nicotine (Nicoderm 14 Mg/24 Hr Transdermal Patch) 1 each TD DAILYP PRN PRN Reason: WITHDRAWAL SYMPTOMS Stop: 09/13/17 23:58 Last Admin: 08/15/17 22:48 Dose: 1 each Ondansetron HCl (Zofran Inj/Pf 4 Mg/2 Ml Sdv) 4 mg IV Q2HP PRN PRN Reason: FOR NAUSEA/VOMITING Stop: 09/13/17 14:30 Last Admin: 08/15/17 04:04 Dose: 4 mg Oxycodone HCl (Oxy-Ir 5 Mg Tablet) 5 mg PO Q4HP PRN PRN Reason: PAIN Stop: 08/22/17 17:10 Last Admin: 08/16/17 03:47 Dose: 5 mg Oxycodone/Acetaminophen (Percocet 5-325 Mg Tablet) 1 tab PO Q4HP PRN PRN Reason: PAIN Stop: 08/22/17 17:09 Last Admin: 08/16/17 03:48 Dose: 1 tab Sertraline HCl (Zoloft 50 Mg Tablet) 50 mg PO DAILY BIMAL Stop: 09/14/17 09:59 Last Admin: 08/15/17 10:47 Dose: 50 mg - Allergies Allergies/Adverse Reactions: Antihistamines - Ethylenediamine Allergy (Intermediate, Verified 02/03/17 12:03) panic attack diphenhydramine HCl [From Benadryl] Adverse Reaction (Intermediate, Verified 04/21 12:03) "Keeps me up" Hospital Course Hospital Course: Patient was admitted through the emergency room to the orthopedic service for treatment of left hip pain subsequently diagnosed as Ficot IV avascular necrosis. Following admission the patient has indicated that she wishes to be transferred to [facility] where she had a previous contralateral hip arthroplasty [place] [address] Tsai. Physical Exam Vital Signs: Temp Pulse Resp BP Pulse Ox 36.6 C 69 17 126/58 H 92 08/15/17 23:50 08/15/17 23:50 08/15/17 23:50 08/15/17 23:50 08/15/17 23:50 Intake & Output 08/14/17 08/15/17 08/16/17 06:59 06:59 06:59 Intake Total 270 360 Output Total 325 925 Balance -55 -565 Weight 98.9 kg 100.2 kg General appearance: PRESENT: no acute distress, mild distress Head exam: PRESENT: normocephalic Respiratory exam: PRESENT: unlabored Cardiovascular exam: PRESENT: RRR Pulses: PRESENT: +1 pedal pulses bilateral Vascular exam: PRESENT: normal capillary refill GI/Abdominal exam: PRESENT: soft Rectal exam: PRESENT: deferred Musculoskeletal exam: PRESENT: other - Leg lengths are unequal. Passive range of motion of the left lower extremity results in significant pain. Distal neurovascular examination is intact. Neurological exam: PRESENT: alert, awake, oriented to person, oriented to place , oriented to time, oriented to situation. ABSENT: motor sensory deficit Psychiatric exam: PRESENT: appropriate affect, normal mood. ABSENT: homicidal ideation, suicidal ideation Skin exam: PRESENT: dry, intact, warm. ABSENT: cyanosis, rash Results Impressions: Hip X-Ray 08/14/17 10:29 IMPRESSION: Severe end-stage degenerative changes with chronic lateral subluxation/dislocation of the femoral head, fragmentation, extensive cystic change of the femoral head, and bony fragment suggesting prior fracture within the acetabulum. Chest X-Ray 08/14/17 12:51 IMPRESSION: HEART ENLARGED WITHOUT FAILURE. NO OTHER SIGNIFICANT RADIOGRAPHIC FINDING IN THE CHEST. Status: Imported from PACS Plan Discharge Plan: Patient to be transferred to [facility] under the care Dr. Tsia once transfer arrangements can be secured.
--- NOTE | 2017-08-16 08:40 | EKG REPORT ---
SEVERITY:- NORMAL ECG - SINUS RHYTHM : Confirmed by: Hammad Chapa 16-Aug-2017 08:39:38
[2017-08-16] MEDS: METOPROLOL SUCCINATE 25 MG TAB.SR.24H PO SCH ×2 (09:46→21:59)
[2017-08-16] MEDS: GABAPENTIN 300 MG CAPSULE PO SCH ×2 (09:46→14:41)
[2017-08-16] MEDS: SERTRALINE HCL 50 MG TABLET PO SCH (09:47)
[2017-08-16] MEDS: ALBUTEROL SULFATE HFA (90 MCG/PUFF) 8 GM MDI (1 MDI/ER DISP) IH SCH ×2 (09:48→14:41)
[2017-08-16] MEDS: CLONAZEPAM 1 MG TABLET PO SCH ×3 (09:50→17:24)
[2017-08-16] MEDS: GABAPENTIN 400 MG CAPSULE PO SCH (17:25)
[2017-08-16] MEDS: ALBUTEROL SULFATE HFA (90 MCG/PUFF) 200 PUFF/8.5 GM MDI IH SCH ×2 (17:27→22:00)
[2017-08-16] MEDS: ATORVASTATIN CALCIUM 20 MG TABLET PO SCH (22:00)
[2017-08-16] MEDS: HYDROMORPHONE HCL 2 MG TABLET PO PRN (22:00)
[2017-08-17] MEDS: HYDROMORPHONE HCL 2 MG TABLET PO PRN ×5 (02:11→21:19)
[2017-08-17] MEDS: MORPHINE SULFATE 10 MG/ML INJ IV PRN ×4 (03:45→23:48)
--- NOTE | 2017-08-17 06:56 | PDOC PROGRESS REPORT ---
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 Physical Exam Vital Signs: Temp Pulse Resp BP Pulse Ox 36.8 C 70 16 118/74 100 08/16/17 16:06 08/16/17 16:06 08/16/17 16:06 08/16/17 16:06 08/16/17 16:06 Intake & Output 08/15/17 08/16/17 08/17/17 06:59 06:59 06:59 Intake Total 270 360 744 Output Total 325 925 650 Balance -55 -565 94 Weight 98.9 kg 100.2 kg 99.6 kg General appearance: PRESENT: mild distress, obese, other - Patient tearful Head exam: PRESENT: normocephalic Respiratory exam: PRESENT: unlabored Cardiovascular exam: PRESENT: RRR Pulses: PRESENT: +1 pedal pulses bilateral Vascular exam: PRESENT: normal capillary refill GI/Abdominal exam: PRESENT: soft Rectal exam: PRESENT: deferred Extremities exam: PRESENT: other - Patient with a shortened externally rotated left lower extremity. Neurological exam: PRESENT: alert, awake, oriented to person, oriented to place , oriented to time, oriented to situation, CN II-XII grossly intact. ABSENT: motor sensory deficit Skin exam: PRESENT: dry, intact, warm. ABSENT: cyanosis, rash Results Impressions: Hip X-Ray 08/14/17 10:29 IMPRESSION: Severe end-stage degenerative changes with chronic lateral subluxation/dislocation of the femoral head, fragmentation, extensive cystic change of the femoral head, and bony fragment suggesting prior fracture within the acetabulum. Chest X-Ray 08/14/17 12:51 IMPRESSION: HEART ENLARGED WITHOUT FAILURE. NO OTHER SIGNIFICANT RADIOGRAPHIC FINDING IN THE CHEST. Status: Imported from PACS Assessment & Plan - Diagnosis (1) Avascular necrosis of bone of left hip Is this a current diagnosis for this admission?: Yes Plan: 47-year-old white female status post right hip arthroplasty by Dr. Tsai [facility] in 2014 now with left hip pain secondary to avascular necrosis. Patient had requested transfer [facility] so that she could undergo hip arthroplasty by Dr. Tsai. I contacted the [facility] yesterday Dr. Tsai is out of town for the week. I did talk to his PA, Pio Haile, who talked to another partner Dr. Meyer would be glad to take care of the patient. However she did not want to accept the patient as an inpatient transfer. She stated that she would rather see the patient in the outpatient clinic setting on Wednesday. Plan will be for mobilization with physical therapy today and discharge tomorrow so that she can be seen by the [facility] on an outpatient basis. - Time Time Spent with patient: 15-24 minutes Anticipated discharge: Home with Homehealth Within: within 24 hours
[2017-08-17] MEDS: ALBUTEROL SULFATE HFA (90 MCG/PUFF) 200 PUFF/8.5 GM MDI IH SCH ×4 (10:49→21:18)
[2017-08-17] MEDS: CLONAZEPAM 1 MG TABLET PO SCH ×3 (10:49→17:52)
[2017-08-17] MEDS: SERTRALINE HCL 50 MG TABLET PO SCH (10:49)
[2017-08-17] MEDS: GABAPENTIN 400 MG CAPSULE PO SCH ×3 (10:49→18:01)
[2017-08-17] MEDS: METOPROLOL SUCCINATE 25 MG TAB.SR.24H PO SCH ×2 (10:49→21:18)
--- NOTE | 2017-08-17 13:59 | PSYCHOLOGICAL NOTE ---
Psych Note - Psych Note Psych Note: Reason for consult: Suicidal ideation Contact Permissions: Patient's son Farhan Humphrey and patient's ex Timothy Humphrey [phone] Patient is a 47-year-old female. Patient reports that she is in a lot of physical pain and the medications were not working. Patient reports that she has a high tolerance to pain medication. Patient reports that right now she is being told she has to discharge and is upset because she cannot walk at this point. Patient reports that prior to coming in she was having accidents ( pooping on herself) and having difficulty cleaning herself up that she felt like a "invalid". Patient reports that because of how bad the pain was she felt that she did not want to go on like that anymore and had called EMS stating she felt suicidal, however she was not truly suicidal it was all because of the pain. Patient reports that while in the emergency department she found out that she had a fractured hip and her condition had worsened. Patient reports she attributes the worsening condition of her hip due to being on gabapentin and another pain medication prescribed by [facility] that masked the pain and she did not put herself on restriction so she was moving furniture and cleaning her house which caused her to fracture the hip. Patient originally stated that she was feeling suicidal, and stated that if she was discharged she would take a bottle of pills and overdose or slit her wrist with a knife. Patient reports that it is out of frustration of not wanting to be " an invalid". Patient reports she feels like Dr. Torrez is discharging her without doing the surgery because he would not want to ( for personal reasons) and states that she has to go outpatient with [facility] in [place] because they had fixed her hips on the other side 3 years ago. Patient reports originally she told Dr. Torrez she would not mind being transferred because her son lives in [place] and he would be able to visit her as he is not able to visit her here due to the distance. Patient reports that she told Dr. Torrez if she could not get the surgery there she would stay here until he could. Patient reports everything she is feeling right now is because of the pain and not being able to walk. Patient reports there were concerns that she had lung cancer and stated that they did not know if it was either pneumonia or lung cancer and that is why they held off on the surgery originally before the fracture. Patient reports she did not follow up with a specialist such as oncology, and the primary doctor was at [facility] .Patient reports that if they are not transferring her because the doctor ( Eulalio) is currently on vacation and the physician fitness assistant Pio said it is worthy of outpatient she wants to stay here and get the surgery here because she cannot walk. Clinician explained to the patient the scope of practice of an inpatient psychiatric hospital for people who are involuntarily committed when they are truly suicidal, patient then stated "I do not want to take my life I want my life back that is why I am fixed on getting my health better and getting my hip fixed; if I wanted to I wouldn't be sitting here trying to advocate for myself, I want them to fix my pain, and fix my hip but they will not do it, Dr. Torrez will not help me". Patient reported that she is a "chicken shit, I'm afraid of hurting myself, I wouldn't go thru with it I just spew out things when I'm angry, I don't really mean it". Diagnosis: Per history 300.00 (F41.9) Unspecified Anxiety Disorder ( reported by patient) Impression/Plan: Patient is psychiatrically cleared.Patient denied intent and means behind passive suicidal ideation. Patient stated her statements were made so that she would not be discharged and for her surgery to take place. Clinician observed patient is in pain, and due to her medical issues and not receiving the treatment she is requesting she is giving an ultimatum for secondary gain, which is not true suicidality. Per patient report she is not able to do her activities of daily living due to her the condition of her hip, to address barriers and medical needs at home, social work/discharge planning can assist. Recommendation for patient to follow up with outpatient services for mental health needs, and regarding the medical decisions that would be decided by Dr. Torrez who is charge of her care. Attending physician in agreement with plan and disposition. Consulted with Dr. Garrett regarding the management and care of patient.
[2017-08-17] MEDS ORDERED: FLUMAZENIL INJ 0.5 MG/5 ML VIAL ONE (17:44)
[2017-08-17] MEDS: ATORVASTATIN CALCIUM 20 MG TABLET PO SCH (21:19)
[2017-08-18] MEDS: HYDROMORPHONE HCL 2 MG TABLET PO PRN ×5 (03:57→21:35)
[2017-08-18] MEDS: MORPHINE SULFATE 10 MG/ML INJ IV PRN ×3 (06:20→19:49)
--- NOTE | 2017-08-18 07:05 | PDOC DISCHARGE SUMMARY ---
General - Admit/Disc Date/PCP Admission Date/Primary Care Provider: 08/14/17 13:14 Discharge Date: 08/18/17 - Discharge Diagnosis (1) Avascular necrosis of bone of left hip Is this a current diagnosis for this admission?: Yes - Additional Information Resuscitation Status: Full Code Discharge Diet: As Tolerated, Regular Discharge Activity: Activity As Tolerated Home Medications: Clonazepam [Klonopin 1 mg Tablet] 1 mg PO TID 02/03/17 Albuterol Sulfate [Ventolin HFA MDI 18 GM] 2 puff IH QID 08/14/17 Diclofenac Sodium [Voltaren 50 mg Tablet.dr] 50 mg PO QIDP PRN 08/14/17 Gabapentin [Neurontin 300 mg Capsule] 1,200 mg PO TID 08/14/17 Ipratropium/Albuterol Sulfate [Combivent Respimat 4 gm Mdi] 1 puff IH BID Sertraline HCl [Zoloft 50 mg Tablet] 50 mg PO DAILY 08/14/17 Hydromorphone HCl [Dilaudid 2 mg Tablet] 4 mg PO Q4HP PRN tablet 08/18/17 History of Present Illness History of Present Illness: The patient is a 47-year-old white female with considerable medical comorbidities who presented to the emergency room with complaints of left hip pain. Evaluation in the emergency room including plain films that were interpreted as a femoral head fracture. The patient was admitted for this. Upon further evaluation what the patient has is a Ficot stage IV avascular necrosis. The patient is status post right hip arthroplasty in [facility] [address] Clif Tsai. She has family [facility]. She requested that she be transferred to [facility] for the surgical treatment of the avascular necrosis which would entail a left hip arthroplasty. I contacted Dr. Tsai's clinical team. Dr. Tsai is out of town for the week. His PA Pio Haile and then contacted [address] Tsai[address] colleagues who agreed to see the patient on an outpatient basis on Wednesday, August 18, 2017. Patient is now being discharged so that she can be evaluated by the [facility] group today. Hospital Course Hospital Course: Patient is admitted through the emergency room to orthopedic service for treatment of a presumed left hip fracture dislocation. Diagnosis is adjusted to stage IV avascular necrosis of the left hip. The patient has consultations from cardiology, medicine, psychology and pain management. Her pain is controlled per pain management recommendations. Physical Exam Vital Signs: Temp Pulse Resp BP Pulse Ox 36.9 C 59 L 17 110/63 100 08/17/17 16:00 08/17/17 16:00 08/17/17 16:00 08/17/17 16:00 08/17/17 16:00 Intake & Output 08/16/17 08/17/17 08/18/17 06:59 06:59 06:59 Intake Total 651 959 4773 Output Total 434 864 4289 Balance -565 94 580 Weight 100.2 kg 99.6 kg 100.9 kg General appearance: PRESENT: no acute distress, mild distress, obese Head exam: PRESENT: normocephalic Respiratory exam: PRESENT: unlabored Cardiovascular exam: PRESENT: RRR Pulses: PRESENT: +1 pedal pulses bilateral Vascular exam: PRESENT: normal capillary refill GI/Abdominal exam: PRESENT: soft Rectal exam: PRESENT: deferred Extremities exam: PRESENT: other - Reduce passive range of motion left lower extremity secondary to pain distal neurovascular examination is intact. Neurological exam: PRESENT: alert, awake, oriented to person, oriented to place , oriented to time, oriented to situation Psychiatric exam: PRESENT: agitated Skin exam: PRESENT: dry, intact, warm. ABSENT: cyanosis, rash Results Impressions: Hip X-Ray 08/14/17 10:29 IMPRESSION: Severe end-stage degenerative changes with chronic lateral subluxation/dislocation of the femoral head, fragmentation, extensive cystic change of the femoral head, and bony fragment suggesting prior fracture within the acetabulum. Chest X-Ray 08/14/17 12:51 IMPRESSION: HEART ENLARGED WITHOUT FAILURE. NO OTHER SIGNIFICANT RADIOGRAPHIC FINDING IN THE CHEST. Status: Imported from PACS Qualifiers - * PATIENT BEING DISCHARGED WITH ANY OF THE FOLLOWING DIAGNOSIS: No VTE patient discharged on overlapping Therapy?: No Reason(s) for not prescribing Overlap Therapy:: Not indicated Plan Discharge Plan: Patient be discharged and follow-up with the [facility] today on an outpatient basis.
[2017-08-18] MEDS: CLONAZEPAM 1 MG TABLET PO SCH ×4 (09:23→21:36)
[2017-08-18] MEDS: SERTRALINE HCL 50 MG TABLET PO SCH (09:23)
[2017-08-18] MEDS: GABAPENTIN 400 MG CAPSULE PO SCH ×3 (09:23→21:35)
[2017-08-18] MEDS: METOPROLOL SUCCINATE 25 MG TAB.SR.24H PO SCH ×2 (09:23→21:36)
[2017-08-18] MEDS: ALBUTEROL SULFATE HFA (90 MCG/PUFF) 200 PUFF/8.5 GM MDI IH SCH ×4 (09:23→21:34)
[2017-08-18] MEDS: ATORVASTATIN CALCIUM 20 MG TABLET PO SCH (21:35)
[2017-08-19] MEDS: HYDROMORPHONE HCL 2 MG TABLET PO PRN ×3 (01:37→10:46)
[2017-08-19] MEDS: MORPHINE SULFATE 10 MG/ML INJ IV PRN ×2 (03:31→09:25)
[2017-08-19] MEDS: GABAPENTIN 400 MG CAPSULE PO SCH ×3 (06:11→22:00)
[2017-08-19] MEDS: CLONAZEPAM 1 MG TABLET PO SCH ×3 (06:12→22:00)
[2017-08-19] MEDS: SERTRALINE HCL 50 MG TABLET PO SCH (09:25)
[2017-08-19] MEDS: ALBUTEROL SULFATE HFA (90 MCG/PUFF) 200 PUFF/8.5 GM MDI IH SCH ×4 (10:46→22:00)
[2017-08-19] MEDS: METOPROLOL SUCCINATE 25 MG TAB.SR.24H PO SCH ×2 (14:23→22:00)
[2017-08-19] MEDS: MORPHINE SULFATE IR 30 MG TABLET PO PRN ×3 (14:39→22:29)
--- NOTE | 2017-08-19 16:43 | Progress Note ---
Provider Note Provider Note: 08/19/2017 Patient is a 47-year-old with a known history of coronary artery disease, hyperlipidemia, hypertension, abnormal CT of the chest showing 2 pleural opacities . She was admitted with intractable left hip pain and was diagnosed of avascular necrosis of the left hip. Patient is unable to ambulate. She was evaluated by pain management; orthopedics and psychiatry. She is awaiting transfer to higher level of care for hip surgery. Patient was transferred to hospitalist service for continued management of pain awaiting transfer
[2017-08-19] MEDS: NYSTATIN TOPICAL POWDER 15 GM TP SCH (22:00)
[2017-08-19] MEDS: ATORVASTATIN CALCIUM 20 MG TABLET PO SCH (22:00)
[2017-08-20] MEDS: MORPHINE SULFATE IR 30 MG TABLET PO PRN ×5 (04:29→21:54)
[2017-08-20] MEDS: GABAPENTIN 400 MG CAPSULE PO SCH ×3 (06:40→21:54)
[2017-08-20] MEDS: CLONAZEPAM 1 MG TABLET PO SCH ×3 (06:40→21:54)
[2017-08-20] MEDS: SERTRALINE HCL 50 MG TABLET PO SCH (09:45)
[2017-08-20] MEDS: NYSTATIN TOPICAL POWDER 15 GM TP SCH ×2 (09:46→21:54)
[2017-08-20] MEDS: ALBUTEROL SULFATE HFA (90 MCG/PUFF) 200 PUFF/8.5 GM MDI IH SCH ×4 (09:46→21:54)
[2017-08-20] MEDS: METOPROLOL SUCCINATE 25 MG TAB.SR.24H PO SCH ×2 (09:47→21:56)
--- NOTE | 2017-08-20 16:53 | PDOC PROGRESS REPORT ---
Subjective Progress Note for:: 08/20/17 Subjective:: pain still persistent and severe patient crying extremely depressed Reason For Visit: CLOSED FRACTURE OF LEFT HIP,DISLOCATION OF LEFT Physical Exam Vital Signs: Temp Pulse Resp BP Pulse Ox 98.0 F 65 16 111/63 100 08/20/17 11:50 08/20/17 11:50 08/20/17 11:50 08/20/17 11:50 08/20/17 11:50 Intake & Output 08/19/17 08/20/17 08/21/17 00:59 00:59 00:59 Intake Total 1575 1631 5 Output Total 1575 2450 Balance 0 -819 5 Weight 100.9 kg 102.3 kg 101.7 kg General appearance: PRESENT: mild distress, morbidly obese Head exam: PRESENT: atraumatic, normocephalic Eye exam: PRESENT: conjunctiva pink, EOMI, PERRLA. ABSENT: scleral icterus Neck exam: ABSENT: carotid bruit, JVD, lymphadenopathy, thyromegaly Respiratory exam: PRESENT: clear to auscultation hermann. ABSENT: rales, rhonchi, wheezes Pulses: PRESENT: normal dorsalis pedis pul GI/Abdominal exam: PRESENT: normal bowel sounds, soft. ABSENT: distended, guarding, mass, organolmegaly, rebound, tenderness Extremities exam: PRESENT: other - pain on mobilisation left hip. ABSENT: calf tenderness Neurological exam: PRESENT: alert, awake, oriented to person, oriented to place , oriented to time, oriented to situation, CN II-XII grossly intact. ABSENT: motor sensory deficit Results Impressions: Hip X-Ray 08/14/17 10:29 IMPRESSION: Severe end-stage degenerative changes with chronic lateral subluxation/dislocation of the femoral head, fragmentation, extensive cystic change of the femoral head, and bony fragment suggesting prior fracture within the acetabulum. Chest X-Ray 08/14/17 12:51 IMPRESSION: HEART ENLARGED WITHOUT FAILURE. NO OTHER SIGNIFICANT RADIOGRAPHIC FINDING IN THE CHEST. Assessment & Plan - Diagnosis (2) Mass of pleura Is this a current diagnosis for this admission?: Yes Plan: will repeat CT chest with contrast (3) Avascular necrosis of bone of left hip Is this a current diagnosis for this admission?: Yes Plan: CT left hip (4) CAD (coronary artery disease) Qualifiers: Coronary Disease-Associated Artery/Lesion type: council artery [place] vs. transplanted heart: council heart Associated angina: angina presence unspecified Qualified Code(s): I25.10 - Atherosclerotic heart disease of council coronary artery without angina pectoris Is this a current diagnosis for this admission?: Yes (5) Tobacco abuse Is this a current diagnosis for this admission?: Yes - Time Time Spent with patient: spoke with Dr Tsai and Dr Smith who both feel that patient does not need transfer for emergent surgery will order CT hip ? is there a fracture
--- NOTE | 2017-08-20 18:59 | RADIOLOGY REPORT (SQ) ---
EXAM DESCRIPTION: CT CHEST WITH COMPLETED DATE/TIME: 08/20/2017 6:48 pm REASON FOR STUDY: pleural masses COMPARISON: 06/24/2017 and 06/15/2017. TECHNIQUE: CT scan of the chest performed using helical scanning technique with dynamic intravenous contrast injection. Images reviewed with lung, soft tissue and bone windows. Reconstructed coronal and sagittal MPR images reviewed. All images stored on PACS. All CT scanners at this facility use dose modulation, iterative reconstruction, and/or weight based d osing when appropriate to reduce radiation dose to as low as reasonably achievable (ALARA). [facility]: Dose Right [facility]: CareDose [facility]: Dose Right [facility]: Teradose 4D [facility]: SIM Digital CONTRAST TYPE AND DOSE: contrast/concentration: Isovue 370.00 mg/ml; Total Contrast Delivered: 80.0 ml; Total Saline Delivered: 53.7 ml RENAL FUNCTION: BUN 6 creatinine 0.56. RADIATION DOSE: CT Rad equipment meets quality standard of care and radiation dose reduction techniq ues were employed. CTDIvol: 19.0 mGy. DLP: 793 mGy-cm. . LIMITATIONS: None. FINDINGS: LUNGS AND PLEURA: Previously seen subpleural densities in the anterior left upper lobe hav e cleared and are no longer present. No infiltrates, nodules, masses. No pneumothorax. No effusions . HILAR AND MEDIASTINAL STRUCTURES: No identified masses or abnormal nodes. HEART AND VASCULAR STRUCTURES: No aneurysm or dissection. No central pulmonary emboli. No pericardi al effusion. HARDWARE: None in the chest. UPPER ABDOMEN: No significant findings. Limited exam. THYROID AND OTHER SOFT TISSUES: No masses. No adenopathy. BONES: No significant finding. OTHER: No other significant finding. IMPRESSION: PREVIOUSLY SEEN SUBPLEURAL DENSITIES IN THE ANTERIOR LEFT UPPER LOBE HAVE CLEARED. NO S IGNIFICANT FINDINGS ON THE CURRENT STUDY. TECHNICAL DOCUMENTATION: JOB ID: [id number] Quality ID # [id number]: Final reports with documentation of one or more dose reduction techniques (e.g., Au tomated exposure control, adjustment of the mA and/or kV according to patient size, use of iterative reconstruction technique) 2010 [employer]- All Rights Reserved Reading location - IP/workstation name: [email or web address]
--- NOTE | 2017-08-20 19:08 | RADIOLOGY REPORT (SQ) ---
EXAM DESCRIPTION: CT PELVIS WITHOUT COMPLETED DATE/TIME: 08/20/2017 6:48 pm REASON FOR STUDY: Left hip no contrast COMPARISON: Radiograph from 08/14/2017 TECHNIQUE: CT scan of the pelvis performed without intravenous or oral contrast. Images reviewed wi th soft tissue and bone windows. Reconstructed coronal and sagittal MPR images reviewed. All images stored on PACS. All CT scanners at this facility use dose modulation, iterative reconstruction, and/or weight based d osing when appropriate to reduce radiation dose to as low as reasonably achievable (ALARA). [facility]: Dose Right [facility]: CareDose [facility]: Dose Right [facility]: Teradose 4D [facility]: Smart [employer] RADIATION DOSE: CT Rad equipment meets quality standard of care and radiation dose reduction techniq ues were employed. CTDIvol: 18.5 mGy. DLP: 758 mGy-cm. mGy. LIMITATIONS: None. FINDINGS: PELVIC BONES: No acute fracture. No worrisome bone lesions. VISUALIZED SPINE: No acute findings. HIP(S): Total right hip arthroplasty. Again seen is severe arthritic change of the left hip with lat eral subluxation and fragmentation of the acetabulum. PELVIC SOFT TISSUES: No significant findings. Rene noted within the bladder. EXTRAPELVIC SOFT TISSUES: No significant findings. OTHER: No other significant finding. IMPRESSION: NO ACUTE OSSEOUS ABNORMALITY. NO SIGNIFICANT CHANGE FROM PRIOR RADIOGRAPHS. TECHNICAL DOCUMENTATION: JOB ID: [id number] Quality ID # [id number]: Final reports with documentation of one or more dose reduction techniques (e.g., Au tomated exposure control, adjustment of the mA and/or kV according to patient size, use of iterative reconstruction technique) 2010 [employer]- All Rights Reserved Reading location - IP/workstation name: [email or web address]
[2017-08-20] MEDS: MORPHINE SULFATE 10 MG/ML INJ IV PRN (19:49)
[2017-08-20] MEDS: ATORVASTATIN CALCIUM 20 MG TABLET PO SCH (21:54)
[2017-08-21] MEDS: MORPHINE SULFATE 10 MG/ML INJ IV PRN ×4 (04:26→20:30)
[2017-08-21] MEDS: CLONAZEPAM 1 MG TABLET PO SCH ×3 (06:19→21:51)
[2017-08-21] MEDS: GABAPENTIN 400 MG CAPSULE PO SCH ×3 (06:19→21:51)
[2017-08-21] MEDS: MORPHINE SULFATE IR 30 MG TABLET PO PRN ×3 (06:19→17:03)
[2017-08-21] MEDS: ALBUTEROL SULFATE HFA (90 MCG/PUFF) 200 PUFF/8.5 GM MDI IH SCH ×4 (09:58→21:51)
[2017-08-21] MEDS: NYSTATIN TOPICAL POWDER 15 GM TP SCH ×2 (09:58→21:51)
[2017-08-21] MEDS: SERTRALINE HCL 50 MG TABLET PO SCH (09:59)
[2017-08-21] MEDS: METOPROLOL SUCCINATE 25 MG TAB.SR.24H PO SCH ×2 (09:59→21:51)
[2017-08-21] MEDS ORDERED: MORPHINE SULFATE SR 30 MG TABLET PO ONE (12:45)
--- NOTE | 2017-08-21 17:08 | PDOC PROGRESS REPORT ---
Subjective Progress Note for:: 08/21/17 Subjective:: 47 yr old female with avascular necrosis of L hip presented with intractable pain. pain is still not controlled. Will add MS Contin. Reason For Visit: CLOSED FRACTURE OF LEFT HIP,DISLOCATION OF LEFT Physical Exam Vital Signs: Temp Pulse Resp BP Pulse Ox 98.5 F 70 17 125/53 L 97 08/21/17 11:37 08/21/17 11:37 08/21/17 11:37 08/21/17 11:37 08/21/17 11:37 Intake & Output 08/20/17 08/21/17 08/22/17 06:59 06:59 06:59 Intake Total 1271 1580 Output Total 1650 2850 Balance -379 -1270 Weight 101.7 kg 101.7 kg General appearance: PRESENT: no acute distress Head exam: PRESENT: normocephalic Eye exam: ABSENT: scleral icterus Ear exam: PRESENT: normal external ear exam Mouth exam: PRESENT: moist Neck exam: ABSENT: tracheal deviation Respiratory exam: PRESENT: symmetrical, unlabored. ABSENT: wheezes Cardiovascular exam: PRESENT: RRR GI/Abdominal exam: PRESENT: normal bowel sounds, soft. ABSENT: tenderness Rectal exam: PRESENT: deferred Gentrourinary exam: PRESENT: indwelling catheter Neurological exam: PRESENT: alert, awake, oriented to person, oriented to place , oriented to time, oriented to situation Psychiatric exam: PRESENT: appropriate affect Results Impressions: Hip X-Ray 08/14/17 10:29 IMPRESSION: Severe end-stage degenerative changes with chronic lateral subluxation/dislocation of the femoral head, fragmentation, extensive cystic change of the femoral head, and bony fragment suggesting prior fracture within the acetabulum. Chest X-Ray 08/14/17 12:51 IMPRESSION: HEART ENLARGED WITHOUT FAILURE. NO OTHER SIGNIFICANT RADIOGRAPHIC FINDING IN THE CHEST. Pelvis CT 08/20/17 15:57 IMPRESSION: NO ACUTE OSSEOUS ABNORMALITY. NO SIGNIFICANT CHANGE FROM PRIOR RADIOGRAPHS. Chest CT 08/20/17 16:02 IMPRESSION: PREVIOUSLY SEEN SUBPLEURAL DENSITIES IN THE ANTERIOR LEFT UPPER LOBE HAVE CLEARED. NO SIGNIFICANT FINDINGS ON THE CURRENT STUDY. Assessment & Plan - Diagnosis (1) Avascular necrosis of bone of left hip Is this a current diagnosis for this admission?: Yes Plan: Pain management. Will eventual need arthroplasty (2) Intractable pain Is this a current diagnosis for this admission?: Yes Plan: Morphine IR prn and MS Contin added (3) Tobacco abuse Is this a current diagnosis for this admission?: Yes Plan: Continue Nictine patch (4) Anxiety and depression Is this a current diagnosis for this admission?: Yes Plan: Continue Zoloft. (5) Dyslipidemia Is this a current diagnosis for this admission?: Yes Plan: Statin (6) Hypertension Qualifiers: Hypertension type: essential hypertension Qualified Code(s): I10 - Essential (primary) hypertension Is this a current diagnosis for this admission?: Yes Plan: On Metoprolol - Time Time Spent with patient: 35 or more minutes
[2017-08-21] MEDS: ATORVASTATIN CALCIUM 20 MG TABLET PO SCH (21:51)
[2017-08-21] MEDS: MORPHINE SULFATE SR 30 MG TABLET PO SCH (21:51)
[2017-08-22] MEDS: MORPHINE SULFATE IR 30 MG TABLET PO PRN ×6 (00:26→23:51)
[2017-08-22] MEDS: MORPHINE SULFATE 10 MG/ML INJ IV PRN ×5 (01:53→21:32)
[2017-08-22] MEDS: CLONAZEPAM 1 MG TABLET PO SCH ×3 (05:04→21:32)
[2017-08-22] MEDS: GABAPENTIN 400 MG CAPSULE PO SCH ×3 (05:04→21:32)
[2017-08-22 05:13] LABS: HEMATOCRIT 29.7 % (36.0-47.0); HEMOGLOBIN 9.5 g/dL (12.0-15.5); MEAN CORPUSCULAR HEMOGLOBIN 25.8 pg (27.0-33.4); MEAN CORPUSCULAR HGB CONC 31.9 g/dL (32.0-36.0); MEAN CORPUSCULAR VOLUME 81 fl (80-97); PLATELET COUNT 394 10^3/uL (150-450); RED BLOOD COUNT 3.67 10^6/uL (3.72-5.28); RED CELL DISTRIBUTION WIDTH 21.2 % (11.5-14.0); WHITE BLOOD COUNT 9.4 10^3/uL (4.0-10.5)
[2017-08-22 05:37] LABS: ANION GAP 6 (5-19); BLOOD UREA NITROGEN 11 mg/dL (7-20); CALCIUM 9.3 mg/dL (8.4-10.2); CARBON DIOXIDE 29 mmol/L (22-30); CHLORIDE 106 mmol/L (98-107); GLUCOSE 90 mg/dL (75-110); PHOSPHORUS 6.4 mg/dL (2.5-4.5); POTASSIUM 4.6 mmol/L (3.6-5.0); SODIUM 141.3 mmol/L (137-145)
[2017-08-22] MEDS: METOPROLOL SUCCINATE 25 MG TAB.SR.24H PO SCH ×2 (09:48→21:33)
[2017-08-22] MEDS: SERTRALINE HCL 50 MG TABLET PO SCH (09:50)
[2017-08-22] MEDS: MORPHINE SULFATE SR 30 MG TABLET PO SCH ×2 (09:51→22:51)
[2017-08-22] MEDS: NYSTATIN TOPICAL POWDER 15 GM TP SCH ×2 (09:51→21:32)
[2017-08-22] MEDS: ALBUTEROL SULFATE HFA (90 MCG/PUFF) 200 PUFF/8.5 GM MDI IH SCH ×4 (09:52→21:32)
--- NOTE | 2017-08-22 13:33 | PDOC PROGRESS REPORT ---
Subjective Progress Note for:: 08/22/17 Subjective:: 47 yr old female with avascular necrosis of L hip presented with intractable pain and inability to bear weight. Pain meds being adjusted for optimal pain control. Reason For Visit: CLOSED FRACTURE OF LEFT HIP,DISLOCATION OF LEFT Physical Exam Vital Signs: Temp Pulse Resp BP Pulse Ox 98.0 F 63 16 105/49 L 100 08/21/17 23:40 08/21/17 23:40 08/21/17 23:40 08/21/17 23:40 08/21/17 23:40 Intake & Output 08/21/17 08/22/17 08/23/17 06:59 06:59 06:59 Intake Total 1580 1289 Output Total 2850 1275 Balance -1270 14 Weight 101.7 kg 104.8 kg General appearance: PRESENT: no acute distress Head exam: PRESENT: normocephalic Eye exam: ABSENT: scleral icterus Mouth exam: PRESENT: moist Respiratory exam: PRESENT: symmetrical, unlabored Cardiovascular exam: PRESENT: RRR GI/Abdominal exam: PRESENT: normal bowel sounds, soft. ABSENT: tenderness Rectal exam: PRESENT: deferred Extremities exam: ABSENT: pedal edema Neurological exam: PRESENT: alert, awake, oriented to person Psychiatric exam: PRESENT: appropriate affect Results Laboratory Results: 08/22/17 04:53 08/22/17 04:53 08/22/17 08/22/17 04:53 04:53 WBC 9.4 RBC 3.67 L Hgb 9.5 L Hct 29.7 L MCV 81 MCH 25.8 L MCHC 31.9 L RDW 21.2 H Plt Count 394 Sodium 141.3 Potassium 4.6 Chloride 106 Carbon Dioxide 29 Anion Gap 6 BUN 11 Creatinine 0.64 Est GFR ( Amer) > 60 Est GFR (Non-Af Amer) > 60 Glucose 90 Calcium 9.3 Phosphorus 6.4 H Magnesium 2.2 Impressions: Hip X-Ray 08/14/17 10:29 IMPRESSION: Severe end-stage degenerative changes with chronic lateral subluxation/dislocation of the femoral head, fragmentation, extensive cystic change of the femoral head, and bony fragment suggesting prior fracture within the acetabulum. Chest X-Ray 08/14/17 12:51 IMPRESSION: HEART ENLARGED WITHOUT FAILURE. NO OTHER SIGNIFICANT RADIOGRAPHIC FINDING IN THE CHEST. Pelvis CT 08/20/17 15:57 IMPRESSION: NO ACUTE OSSEOUS ABNORMALITY. NO SIGNIFICANT CHANGE FROM PRIOR RADIOGRAPHS. Chest CT 08/20/17 16:02 IMPRESSION: PREVIOUSLY SEEN SUBPLEURAL DENSITIES IN THE ANTERIOR LEFT UPPER LOBE HAVE CLEARED. NO SIGNIFICANT FINDINGS ON THE CURRENT STUDY. Assessment & Plan - Diagnosis (1) Avascular necrosis of bone of left hip Is this a current diagnosis for this admission?: Yes Plan: Pain management. Will eventual need arthroplasty (2) Intractable pain Is this a current diagnosis for this admission?: Yes Plan: Morphine IR prn and MS Contin (3) Tobacco abuse Is this a current diagnosis for this admission?: Yes Plan: Continue Nictine patch (4) Anxiety and depression Is this a current diagnosis for this admission?: Yes Plan: Continue Clonazepam and Zoloft. (5) Dyslipidemia Is this a current diagnosis for this admission?: Yes Plan: Statin (6) Hypertension Qualifiers: Hypertension type: essential hypertension Qualified Code(s): I10 - Essential (primary) hypertension Is this a current diagnosis for this admission?: Yes Plan: On Metoprolol - Time Time Spent with patient: 35 or more minutes
[2017-08-22] MEDS: ATORVASTATIN CALCIUM 20 MG TABLET PO SCH (21:32)
[2017-08-23] MEDS: MORPHINE SULFATE 10 MG/ML INJ IV PRN ×5 (02:33→19:41)
[2017-08-23] MEDS: CLONAZEPAM 1 MG TABLET PO SCH ×3 (06:38→22:10)
[2017-08-23] MEDS: GABAPENTIN 400 MG CAPSULE PO SCH ×3 (06:38→22:09)
[2017-08-23] MEDS: MORPHINE SULFATE IR 30 MG TABLET PO PRN ×4 (07:43→22:09)
[2017-08-23] MEDS: METOPROLOL SUCCINATE 25 MG TAB.SR.24H PO SCH ×2 (09:34→22:09)
[2017-08-23] MEDS: MORPHINE SULFATE SR 30 MG TABLET PO SCH ×2 (09:36→22:09)
[2017-08-23] MEDS: ALBUTEROL SULFATE HFA (90 MCG/PUFF) 200 PUFF/8.5 GM MDI IH SCH ×4 (09:36→22:09)
[2017-08-23] MEDS: SERTRALINE HCL 50 MG TABLET PO SCH (09:36)
[2017-08-23] MEDS: NYSTATIN TOPICAL POWDER 15 GM TP SCH ×2 (09:37→22:10)
--- NOTE | 2017-08-23 13:28 | PDOC PROGRESS REPORT ---
Subjective Progress Note for:: 08/23/17 Subjective:: 47 yr old female with avascular necrosis of L hip presented with intractable pain and inability to bear weight. She had AVN of R hip s/p arthroplasty 3 years ago. Pain meds being adjusted for optimal pain control. Reason For Visit: CLOSED FRACTURE OF LEFT HIP,DISLOCATION OF LEFT Physical Exam Vital Signs: Temp Pulse Resp BP Pulse Ox 98.2 F 66 16 99/50 L 97 08/23/17 11:44 08/23/17 11:44 08/23/17 11:44 08/23/17 11:44 08/23/17 11:44 Intake & Output 08/22/17 08/23/17 08/24/17 06:59 06:59 06:59 Intake Total 1289 1631 Output Total 1275 2025 Balance 14 -394 Weight 104.8 kg 104.7 kg General appearance: PRESENT: no acute distress Head exam: PRESENT: normocephalic Eye exam: ABSENT: scleral icterus Ear exam: PRESENT: normal external ear exam Mouth exam: PRESENT: moist Neck exam: ABSENT: tracheal deviation Respiratory exam: PRESENT: symmetrical, unlabored Cardiovascular exam: PRESENT: RRR GI/Abdominal exam: PRESENT: soft. ABSENT: tenderness Rectal exam: PRESENT: deferred Gentrourinary exam: PRESENT: indwelling catheter Extremities exam: ABSENT: pedal edema Neurological exam: PRESENT: alert, awake, oriented to person, oriented to place , oriented to time, oriented to situation Psychiatric exam: PRESENT: appropriate affect Results Laboratory Results: 08/22/17 04:53 08/22/17 04:53 Impressions: Hip X-Ray 08/14/17 10:29 IMPRESSION: Severe end-stage degenerative changes with chronic lateral subluxation/dislocation of the femoral head, fragmentation, extensive cystic change of the femoral head, and bony fragment suggesting prior fracture within the acetabulum. Chest X-Ray 08/14/17 12:51 IMPRESSION: HEART ENLARGED WITHOUT FAILURE. NO OTHER SIGNIFICANT RADIOGRAPHIC FINDING IN THE CHEST. Pelvis CT 08/20/17 15:57 IMPRESSION: NO ACUTE OSSEOUS ABNORMALITY. NO SIGNIFICANT CHANGE FROM PRIOR RADIOGRAPHS. Chest CT 08/20/17 16:02 IMPRESSION: PREVIOUSLY SEEN SUBPLEURAL DENSITIES IN THE ANTERIOR LEFT UPPER LOBE HAVE CLEARED. NO SIGNIFICANT FINDINGS ON THE CURRENT STUDY. Assessment & Plan - Diagnosis (1) Avascular necrosis of bone of left hip Is this a current diagnosis for this admission?: Yes Plan: Pain management. Will eventual need arthroplasty. (2) Intractable pain Is this a current diagnosis for this admission?: Yes Plan: Morphine IR prn and IV Morphine prn and MS Contin. Continue Gabapentin. (3) Tobacco abuse Is this a current diagnosis for this admission?: Yes Plan: Continue Nictine patch (4) Anxiety and depression Is this a current diagnosis for this admission?: Yes Plan: Continue Clonazepam and Zoloft. (5) Dyslipidemia Is this a current diagnosis for this admission?: Yes Plan: Statin (6) Hypertension Qualifiers: Hypertension type: essential hypertension Qualified Code(s): I10 - Essential (primary) hypertension Is this a current diagnosis for this admission?: Yes Plan: On Metoprolol - Time Time Spent with patient: 25-34 minutes
[2017-08-23] MEDS: ATORVASTATIN CALCIUM 20 MG TABLET PO SCH (22:09)
[2017-08-24] MEDS: MORPHINE SULFATE 10 MG/ML INJ IV PRN ×6 (00:22→22:58)
[2017-08-24] MEDS: MORPHINE SULFATE IR 30 MG TABLET PO PRN ×5 (02:44→20:52)
[2017-08-24] MEDS: GABAPENTIN 400 MG CAPSULE PO SCH ×3 (05:02→22:57)
[2017-08-24] MEDS: CLONAZEPAM 1 MG TABLET PO SCH ×3 (05:02→22:57)
[2017-08-24] MEDS: METOPROLOL SUCCINATE 25 MG TAB.SR.24H PO SCH ×2 (09:02→22:57)
[2017-08-24] MEDS: MORPHINE SULFATE SR 30 MG TABLET PO SCH ×2 (09:02→22:58)
[2017-08-24] MEDS: SERTRALINE HCL 50 MG TABLET PO SCH (09:03)
[2017-08-24] MEDS: NYSTATIN TOPICAL POWDER 15 GM TP SCH (09:04)
[2017-08-24] MEDS: ALBUTEROL SULFATE HFA (90 MCG/PUFF) 200 PUFF/8.5 GM MDI IH SCH ×4 (09:04→22:57)
--- NOTE | 2017-08-24 13:28 | PDOC PROGRESS REPORT ---
Subjective Progress Note for:: 08/24/17 Subjective:: 47 yr old female with avascular necrosis of L hip presented with intractable pain and inability to bear weight. She had AVN of R hip s/p arthroplasty 3 years ago. Pain meds being adjusted for optimal pain control. I discussed her case with Dr. Torrez who is the only Orthopedic surgeon in this hospital who specializes in hip replacements. He says that she does not need emergency surgery and that her condition is chronic. She will have to see an Orthopedist as an outpatient for follow up and eventual hip arthroplasty. She has multiple comorbidities that will have to be optimized prior to attempting surgery. The same was indicated by orthopedics in [place]- Dr. Ale Meyer and Dr. Smith in [place]. The patient insists on getting surgery and stated that she plans to call a medicare interviewer today and francesco everyone. She claimed to be suicidal prior to coming to the hospital due to severe pain and had called the suicide hotline. She was seen by Psych during this admission and they cleared her stating that her frustration was situational and patient admitted to saying she was suicidal purely out of frustration, and that she has no intention of ending her life. At present she is satisfied with the care she is receiving and reports adequate pain control. She states she is unable to go home due to pain and inability to care for herself alone. Reason For Visit: CLOSED FRACTURE OF LEFT HIP,DISLOCATION OF LEFT Physical Exam Vital Signs: Temp Pulse Resp BP Pulse Ox 97.3 F 51 L 16 113/49 L 91 L 08/24/17 11:37 08/24/17 11:37 08/24/17 11:37 08/24/17 11:37 08/24/17 11:37 Intake & Output 08/23/17 08/24/17 08/25/17 06:59 06:59 06:59 Intake Total 1631 2526 Output Total 2024 1450 Balance -394 1076 Weight 104.7 kg 105.9 kg General appearance: PRESENT: obese Head exam: PRESENT: normocephalic Respiratory exam: PRESENT: symmetrical, unlabored Neurological exam: PRESENT: alert, awake, oriented to person, oriented to place Results Laboratory Results: 08/22/17 04:53 08/22/17 04:53 Impressions: Hip X-Ray 08/14/17 10:29 IMPRESSION: Severe end-stage degenerative changes with chronic lateral subluxation/dislocation of the femoral head, fragmentation, extensive cystic change of the femoral head, and bony fragment suggesting prior fracture within the acetabulum. Chest X-Ray 08/14/17 12:51 IMPRESSION: HEART ENLARGED WITHOUT FAILURE. NO OTHER SIGNIFICANT RADIOGRAPHIC FINDING IN THE CHEST. Pelvis CT 08/20/17 15:57 IMPRESSION: NO ACUTE OSSEOUS ABNORMALITY. NO SIGNIFICANT CHANGE FROM PRIOR RADIOGRAPHS. Chest CT 08/20/17 16:02 IMPRESSION: PREVIOUSLY SEEN SUBPLEURAL DENSITIES IN THE ANTERIOR LEFT UPPER LOBE HAVE CLEARED. NO SIGNIFICANT FINDINGS ON THE CURRENT STUDY. Assessment & Plan - Diagnosis (1) Avascular necrosis of bone of left hip Is this a current diagnosis for this admission?: Yes Plan: Pain management. Will eventually need arthroplasty. (2) Intractable pain Is this a current diagnosis for this admission?: Yes Plan: Morphine IR prn and IV Morphine prn and MS Contin. Continue Gabapentin. (3) Tobacco abuse Is this a current diagnosis for this admission?: Yes Plan: Continue Nictine patch (4) Anxiety and depression Is this a current diagnosis for this admission?: Yes Plan: Continue Clonazepam and Zoloft. (5) Dyslipidemia Is this a current diagnosis for this admission?: Yes Plan: Statin (6) Hypertension Qualifiers: Hypertension type: essential hypertension Qualified Code(s): I10 - Essential (primary) hypertension Is this a current diagnosis for this admission?: Yes Plan: On Metoprolol (7) CAD (coronary artery disease) Qualifiers: Coronary Disease-Associated Artery/Lesion type: [place] artery [place] vs. transplanted heart: [place] heart Associated angina: angina presence unspecified Qualified Code(s): I25.10 - Atherosclerotic heart disease of [place] coronary artery without angina pectoris Is this a current diagnosis for this admission?: Yes Plan: Continue outpatient meds - Time Time Spent with patient: 35 or more minutes
[2017-08-24] MEDS: ATORVASTATIN CALCIUM 20 MG TABLET PO SCH (22:58)
[2017-08-25] MEDS: NYSTATIN TOPICAL POWDER 15 GM TP SCH ×3 (01:22→22:38)
[2017-08-25] MEDS: MORPHINE SULFATE 10 MG/ML INJ IV PRN ×3 (03:22→12:21)
[2017-08-25] MEDS: GABAPENTIN 400 MG CAPSULE PO SCH ×3 (05:30→22:35)
[2017-08-25] MEDS: MORPHINE SULFATE IR 30 MG TABLET PO PRN ×5 (05:30→22:36)
[2017-08-25] MEDS: CLONAZEPAM 1 MG TABLET PO SCH ×2 (05:30→15:40)
[2017-08-25] MEDS: MORPHINE SULFATE SR 30 MG TABLET PO SCH ×2 (09:41→22:35)
[2017-08-25] MEDS: METOPROLOL SUCCINATE 25 MG TAB.SR.24H PO SCH ×2 (09:41→22:36)
[2017-08-25] MEDS: SERTRALINE HCL 50 MG TABLET PO SCH (09:43)
[2017-08-25] MEDS: ALBUTEROL SULFATE HFA (90 MCG/PUFF) 200 PUFF/8.5 GM MDI IH SCH ×4 (09:44→22:37)
[2017-08-25] MEDS ORDERED: DICLOFENAC SODIUM 50 MG TABLET.DR PO PRN (13:17)
--- NOTE | 2017-08-25 16:58 | PDOC PROGRESS REPORT ---
Subjective Progress Note for:: 08/25/17 Subjective:: Very manipulative and an attempt to get an increased dose of narcotics. Has given multiple stories to multiple people. She has been fired from the local pain clinic. She continually threatens lawsuit, calling the papers, calling the TV station, if we do not give her pain medications and surgery as she desires. 3 separate orthopedists have weighed in now and stated that this is an outpatient procedure, and she can follow-up as an outpatient. She has been refusing to work with physical therapy. She has been discharged and is appealing. Reason For Visit: CLOSED FRACTURE OF LEFT HIP,DISLOCATION OF LEFT Physical Exam Vital Signs: Temp Pulse Resp BP Pulse Ox 98.9 F 57 L 20 129/63 H 100 08/25/17 11:49 08/25/17 11:49 08/25/17 11:49 08/25/17 11:49 08/25/17 11:49 Intake & Output 08/24/17 08/25/17 08/26/17 05:59 05:59 05:59 Intake Total 2219 2948 560 Output Total 1325 1950 420 Balance 894 998 140 Weight 233 lb 7.512 oz 229 lb 15.074 oz General appearance: PRESENT: no acute distress, obese. ABSENT: cooperative Respiratory exam: PRESENT: clear to auscultation hermann Cardiovascular exam: PRESENT: RRR GI/Abdominal exam: PRESENT: soft Extremities exam: ABSENT: pedal edema Musculoskeletal exam: PRESENT: normal inspection Neurological exam: PRESENT: awake Psychiatric exam: PRESENT: unusual affect, other - Very hostile and manipulative Skin exam: PRESENT: warm Results Laboratory Results: 08/22/17 04:53 08/22/17 04:53 Impressions: Hip X-Ray 08/14/17 10:29 IMPRESSION: Severe end-stage degenerative changes with chronic lateral subluxation/dislocation of the femoral head, fragmentation, extensive cystic change of the femoral head, and bony fragment suggesting prior fracture within the acetabulum. Chest X-Ray 08/14/17 12:51 IMPRESSION: HEART ENLARGED WITHOUT FAILURE. NO OTHER SIGNIFICANT RADIOGRAPHIC FINDING IN THE CHEST. Pelvis CT 08/20/17 15:57 IMPRESSION: NO ACUTE OSSEOUS ABNORMALITY. NO SIGNIFICANT CHANGE FROM PRIOR RADIOGRAPHS. Chest CT 08/20/17 16:02 IMPRESSION: PREVIOUSLY SEEN SUBPLEURAL DENSITIES IN THE ANTERIOR LEFT UPPER LOBE HAVE CLEARED. NO SIGNIFICANT FINDINGS ON THE CURRENT STUDY. Assessment & Plan - Diagnosis (1) Chronic pain Qualifiers: Chronic pain type: other chronic pain Qualified Code(s): G89.29 - Other chronic pain Is this a current diagnosis for this admission?: Yes Plan: I suspect that the avascular necrosis of her hip is causing her pain, but she also has a long history of very aggressive narcotic seeking behavior, and has been dismissed from the local pain clinic. Finding reasonable balance that does not ignore her pain, but at the same time does not facilitate her addiction , is quite challenging. She is not on any narcotics as an outpatient, was started on short and long-acting morphine by the pain management physician. I will not adjust those medications. (2) Avascular necrosis of bone of left hip Is this a current diagnosis for this admission?: Yes Plan: Outpatient follow-up as recommended by multiple orthopedists. (3) COPD (chronic obstructive pulmonary disease) Qualifiers: COPD type: emphysema Is this a current diagnosis for this admission?: Yes (4) Anxiety and depression Is this a current diagnosis for this admission?: Yes Plan: Evaluated by psychiatry this admission. No changes were made to her medications.
[2017-08-25] MEDS: ATORVASTATIN CALCIUM 20 MG TABLET PO SCH (22:35)
[2017-08-26] MEDS: GABAPENTIN 400 MG CAPSULE PO SCH ×3 (05:28→22:47)
[2017-08-26] MEDS: MORPHINE SULFATE IR 30 MG TABLET PO PRN ×4 (05:28→18:43)
[2017-08-26] MEDS: MORPHINE SULFATE SR 30 MG TABLET PO SCH ×2 (09:58→22:47)
[2017-08-26] MEDS: SERTRALINE HCL 50 MG TABLET PO SCH (09:59)
[2017-08-26] MEDS: NYSTATIN TOPICAL POWDER 15 GM TP SCH (10:00)
[2017-08-26] MEDS: ALBUTEROL SULFATE HFA (90 MCG/PUFF) 200 PUFF/8.5 GM MDI IH SCH ×4 (10:00→22:47)
[2017-08-26] MEDS: METOPROLOL SUCCINATE 25 MG TAB.SR.24H PO SCH ×2 (10:01→22:49)
[2017-08-26 14:00] LABS: APPEARANCE,URINE SLIGHTLY-CLOUDY; BILIRUBIN,URINE NEGATIVE (NEGATIVE); COLOR,URINE YELLOW; GLUCOSE, URINE NEGATIVE (NEGATIVE); KETONES,URINE NEGATIVE (NEGATIVE); LEUKOCYTE ESTERASE,URINE MODERATE (NEGATIVE); NITRITE,URINE NEGATIVE (NEGATIVE); PROTEIN,URINE NEGATIVE (NEGATIVE); URINE SPECIFIC GRAVITY 1.005; UROBILINOGEN,URINE NEGATIVE mg/dL (<2.0)
--- NOTE | 2017-08-26 15:54 | Progress Note ---
Provider Note Provider Note: Awaiting her discharge appeal. Refusing to have her Rene removed. Refusing to participate in physical therapy. No apparent change in her condition.
--- NOTE | 2017-08-26 16:53 | PSYCHOLOGICAL NOTE ---
Psych Note - Psych Note Psych Note: Reason for consult: Suicidal ideation Contact Permissions: Patient's son Farhan Humphrey and patient's ex Timothy Humphrey [phone] Behavior health team received request for second consult. Upon entering patient is sitting in bed talking with nurse. Patient is observed to have blue and purple hair with nails professionally done. It is also noted patient has multiple gifts i.e. flower arrangements and dorian bear. Patient discloses multiple concerns regarding her [facility] visit in regards to her medical care. Patient shifts between tearful affect to affect that is congruent to a euthymic mood. Patient reports list of complaints and concerns against medical personnel and states she is filing second appeal for discharge. Patient feels that her medications have been cut back in response to her "standing up for myself." Patient describes concern of physician's egos compromising her care. Patient discloses concern that she came to [facility] ED suicidal because of pain and that she is going to be discharged and put in the same exact situation of pain which will make her suicidal again. Patient describes interaction with her initial attending physician Dr. Torrez stating that he was excellent while she was down in the emergency department however when she went up to the floor she stated "he turned into the Shan I once knew. 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 Patient describes a long list of concerns which are all medical in nature. Patient is currently attempting to appeal her discharge for the second time. At this time patient does denies suicidal ideation but reports concerned that it may happen in the future if she is sent home in the amount of pain she is in. Patient does not meet IVC criteria per [place] GS 122C. Patient's concerns are medical in nature and patient disclosed she requested second psychological consult in the hopes that behavior health team would assist her with these medical concerns i.e. increase in pain medication, Dr. Hoang to come talk to her in person, state that she needs surgery because of her possible deterioration of her mental health if she does not receive, etc. Patient is demonstrating strong cluster B personality traits. consulted with Dr. Garrett regarding the management and care of patient.
[2017-08-26] MEDS: ATORVASTATIN CALCIUM 20 MG TABLET PO SCH (22:47)
[2017-08-27] MEDS: MORPHINE SULFATE IR 30 MG TABLET PO PRN ×4 (06:06→21:39)
[2017-08-27] MEDS: GABAPENTIN 400 MG CAPSULE PO SCH ×3 (06:06→21:38)
[2017-08-27] MEDS: SERTRALINE HCL 50 MG TABLET PO SCH (10:18)
[2017-08-27] MEDS: METOPROLOL SUCCINATE 25 MG TAB.SR.24H PO SCH ×2 (10:18→21:41)
[2017-08-27] MEDS: MORPHINE SULFATE SR 30 MG TABLET PO SCH ×2 (10:18→21:41)
[2017-08-27] MEDS: ALBUTEROL SULFATE HFA (90 MCG/PUFF) 200 PUFF/8.5 GM MDI IH SCH ×4 (10:34→21:38)
--- NOTE | 2017-08-27 15:06 | Progress Note ---
Provider Note Provider Note: Patient's appeal of her discharge was denied. Apparently she is allowed to appeal her appeal. She remains a resident here, she is on her home medications , no active medical management is ongoing. Recall that she is refusing to have her Rene removed, and refusing to participate in physical therapy.
[2017-08-27] MEDS: NITROFURANTOIN MONOHYD/M-CRYST 100 MG CAPSULE PO SCH (17:38)
[2017-08-27] MEDS: ATORVASTATIN CALCIUM 20 MG TABLET PO SCH (21:38)
[2017-08-28] MEDS: MORPHINE SULFATE IR 30 MG TABLET PO PRN ×4 (01:43→20:26)
[2017-08-28] MEDS: GABAPENTIN 400 MG CAPSULE PO SCH ×3 (05:39→21:54)
[2017-08-28] MEDS: NITROFURANTOIN MONOHYD/M-CRYST 100 MG CAPSULE PO SCH ×2 (05:40→17:48)
[2017-08-28] MEDS: MORPHINE SULFATE SR 30 MG TABLET PO SCH (09:30)
[2017-08-28] MEDS: METOPROLOL SUCCINATE 25 MG TAB.SR.24H PO SCH ×2 (09:30→23:36)
[2017-08-28] MEDS: ALBUTEROL SULFATE HFA (90 MCG/PUFF) 200 PUFF/8.5 GM MDI IH SCH ×4 (09:30→23:36)
[2017-08-28] MEDS: SERTRALINE HCL 50 MG TABLET PO SCH (09:31)
--- NOTE | 2017-08-28 11:56 | Progress Note ---
Provider Note Provider Note: Patient is discharged. She is on her second appeal on that discharge. She continues to refuse to have her Rene removed. She was noted to have a urinary tract infection during routine monitoring of Rene catheters. She was started on nitrofurantoin. Today she reports itching in her pelvic region consistent with yeast, so I will also start her on Diflucan. She also reports that she is having a genital herpes outbreak for which she requires Valtrex, I will start this as well. All of these are oral medications and do not require inpatient treatment.
[2017-08-28] MEDS: ATORVASTATIN CALCIUM 20 MG TABLET PO SCH (21:54)
[2017-08-28] MEDS ORDERED: VALACYCLOVIR HCL 500 MG TABLET PO SCH (22:00)
[2017-08-28 23:47] VITALS: BP 120/64
[2017-08-29] MEDS ORDERED: FLUCONAZOLE 100 MG TABLET PO SCH (10:00)
== END 2017-08-28 22:57 | disposition home or self-care (01) | DRG 553 ==
LOC: ER 09:50 → EH 13:14 → 5 19:11 → EH 19:17 → 5 21:37
PROVIDERS: ADMIT Orthopaedic Surgery; ATTEND Emergency Medicine
DX: M87.852 Other osteonecrosis, left femur (principal); S72.002A Fracture of unspecified part of neck of left femur, initial encounter for closed fracture; R45.851 Suicidal ideations; N39.0 Urinary tract infection, site not specified; I50.9 Heart failure, unspecified; I11.0 Hypertensive heart disease with heart failure; B37.9 Candidiasis, unspecified; I25.10 Atherosclerotic heart disease of native coronary artery without angina pectoris; E78.00 Pure hypercholesterolemia, unspecified; K21.9 Gastro-esophageal reflux disease without esophagitis; G89.29 Other chronic pain; M25.552 Pain in left hip; F41.9 Anxiety disorder, unspecified; F60.4 Histrionic personality disorder; G43.909 Migraine, unspecified, not intractable, without status migrainosus; G40.909 Epilepsy, unspecified, not intractable, without status epilepticus; A60.00 Herpesviral infection of urogenital system, unspecified; F17.210 Nicotine dependence, cigarettes, uncomplicated; I25.2 Old myocardial infarction; X58.XXXA Exposure to other specified factors, initial encounter; Z98.84 Bariatric surgery status; Z96.641 Presence of right artificial hip joint
CPT/HCPCS: 36415; 71045; 71260; 72192; 80048; 80053; 80307; 81001; 83735; 84100; 84703; 85025; 85027; 87086; 87088; 87186; 93005; 93010; 96372; 96374; 99285; G8978-GP; G8979-GP; J1100; J1170; J1885; J2270; J2405; J3490; J8499

== ENCOUNTER 2017-09-20 09:04 | Emergency (ER) | payer MEDICARE, MEDICAID ==
[2017-09-20] MEDS ORDERED: ONDANSETRON HCL INJ/PF 4 MG/2 ML SDV IV ONE (09:21)
[2017-09-20] MEDS ORDERED: KETOROLAC TROMETHAMINE INJ/PF 30 MG/1 ML SDV IV ONE (09:22)
[2017-09-20] MEDS ORDERED: ASPIRIN 81 MG TABLET, CHEWABLE PO ONE (09:22)
[2017-09-20] MEDS ORDERED: NORMAL SALINE 1000 ML 1,000 ML IV ONE (09:22)
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
[2017-09-20 10:08] LABS: HEMOGLOBIN 10.4 g/dL (12.0-15.5); RED BLOOD COUNT 4.05 10^6/uL (3.72-5.28); WHITE BLOOD COUNT 13.9 10^3/uL (4.0-10.5)
[2017-09-20 10:09] LABS: ABSOLUTE EOSINOPHILS # (AUTO) 0.1 10^3/uL (0.0-0.6); ABSOLUTE LYMPHOCYTES (AUTO) 1.4 10^3/uL (0.5-4.7); ABSOLUTE MONOCYTES (AUTO) 0.6 10^3/uL (0.1-1.4); ABSOLUTE NEUT (AUTO) 11.7 10^3/uL (1.7-8.2); BASOPHILS % (AUTO) 0.4 % (0-2); EOSINOPHILS % (AUTO) 0.5 % (0-6); LYMPHOCYTES % (AUTO) 10.1 % (13-45); MEAN CORPUSCULAR HEMOGLOBIN 25.7 pg (27.0-33.4); MEAN CORPUSCULAR HGB CONC 31.5 g/dL (32.0-36.0); MEAN CORPUSCULAR VOLUME 82 fl (80-97); MONOCYTES % (AUTO) 4.6 % (3-13); PLATELET COUNT 466 10^3/uL (150-450); RED CELL DISTRIBUTION WIDTH 21.7 % (11.5-14.0); SEGMENTED NEUTROPHILS % (AUTO) 84.4 % (42-78); TOTAL CELLS COUNTED % (AUTO) 100 %
--- NOTE | 2017-09-20 10:14 | RADIOLOGY REPORT (SQ) ---
EXAM DESCRIPTION: CHEST SINGLE VIEW COMPLETED DATE/TIME: 09/20/2017 10:02 am REASON FOR STUDY: c/o CP, SOB and dyspnea COMPARISON: None. EXAM PARAMETERS: NUMBER OF VIEWS: One view. TECHNIQUE: Single frontal radiographic view of the chest acquired. RADIATION DOSE: NA LIMITATIONS: None. FINDINGS: LUNGS AND PLEURA: No opacities, masses or pneumothorax. No pleural effusion. MEDIASTINUM AND HILAR STRUCTURES: No masses. Contour normal. HEART AND VASCULAR STRUCTURES: Heart normal in size. Normal vasculature. BONES: No acute findings. HARDWARE: None in the chest. OTHER: Lucency under the right diaphragm suspicious for free air. IMPRESSION: Pneumoperitoneum. Follow-up is recommended to exclude bowel perforation. TECHNICAL DOCUMENTATION: JOB ID: [id number] [employer]- All Rights Reserved Reading location - IP/workstation name: [email or web address]
[2017-09-20] MEDS ORDERED: ONDANSETRON 4 MG TAB.RAPDIS ONE (10:29)
[2017-09-20 10:42] LABS: CREATINE KINASE MB < 0.22 ng/mL (<4.55); TROPONIN I < 0.012 ng/mL
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
[2017-09-20] MEDS ORDERED: FENTANYL CITRATE INJ/PF 100 MCG/2 ML AMPUL IV ONE ×3 (11:18→17:53)
[2017-09-20 11:39] LABS: BLOOD UREA NITROGEN 9 mg/dL (7-20); CALCIUM 9.2 mg/dL (8.4-10.2); GLUCOSE 91 mg/dL (75-110)
[2017-09-20 11:40] LABS: ALANINE AMINOTRANSFERASE 16 U/L (9-52); ALBUMIN 3.5 g/dL (3.5-5.0); ALKALINE PHOSPHATASE 115 U/L (38-126); ANION GAP 11 (5-19); ASPARTATE AMINO TRANSFERASE 20 U/L (14-36); BILIRUBIN,DIRECT 0.5 mg/dL (0.0-0.4); BILIRUBIN,TOTAL 0.5 mg/dL (0.2-1.3); CARBON DIOXIDE 18 mmol/L (22-30); CHLORIDE 117 mmol/L (98-107); CREATINE KINASE 22 U/L (30-135); LIPASE 29.1 U/L (23-300); POTASSIUM 4.9 mmol/L (3.6-5.0); SODIUM 146.1 mmol/L (137-145); TOTAL PROTEIN 6.5 g/dL (6.3-8.2)
[2017-09-20 11:44] LABS: C-REACTIVE PROTEIN 42.6 mg/L (<10.0)
[2017-09-20 12:59] LABS: APPEARANCE,URINE SLIGHTLY-CLOUDY; BILIRUBIN,URINE NEGATIVE (NEGATIVE); COLOR,URINE YELLOW; GLUCOSE, URINE NEGATIVE (NEGATIVE); KETONES,URINE TRACE mg/dL (NEGATIVE); LEUKOCYTE ESTERASE,URINE NEGATIVE (NEGATIVE); NITRITE,URINE NEGATIVE (NEGATIVE); PROTEIN,URINE NEGATIVE (NEGATIVE); URINE SPECIFIC GRAVITY 1.006; UROBILINOGEN,URINE NEGATIVE mg/dL (<2.0)
[2017-09-20] MEDS ORDERED: ERTAPENEM SODIUM INJ 1 GM VIAL IV ONE (15:10)
[2017-09-20] MEDS ORDERED: LORAZEPAM INJ 2 MG/1 ML VIAL IV ONE (15:14)
[2017-09-20] MEDS ORDERED: RINGERS SOLUTION,LACTATED 1,000 ML IV ONE ×2 (15:15→17:46)
[2017-09-20] MEDS ORDERED: PANTOPRAZOLE SODIUM 40 MG VIAL IV ONE (15:32)
--- NOTE | 2017-09-20 15:37 | EKG REPORT ---
SEVERITY:- ABNORMAL ECG - SINUS RHYTHM NONSPECIFIC T ABNORMALITIES, LATERAL LEADS : Confirmed by: Maria Alejandra Johnson MD 20-Sep-2017 15:36:24
--- NOTE | 2017-09-20 16:12 | RADIOLOGY REPORT (SQ) ---
EXAM DESCRIPTION: CT ABD/PELVIS WITH IV ORAL COMPLETED DATE/TIME: 09/20/2017 3:13 pm REASON FOR STUDY: S/P gastric bypass, severe left abdominal pain COMPARISON: AP chest 09/20/2017. CT chest 09/20/2017 CT abdomen pelvis 03/11/2015, 07/03/2015 TECHNIQUE: CT scan of the abdomen and pelvis performed using helical scanning technique with dynamic intravenous contrast injection. No oral contrast. Images reviewed with lung, soft tissue, and bone windows. Reconstructed coronal and sagittal MPR images reviewed. Delayed images for evaluation of the urinary system also acquired. All images stored on PACS. All CT scanners at this facility use dose modulation, iterative reconstruction, and/or weight based d osing when appropriate to reduce radiation dose to as low as reasonably achievable (ALARA). [facility]: Dose Right [facility]: CareDose [facility]: Dose Right [facility]: Teradose 4D [facility]: [employer] CONTRAST TYPE AND DOSE: contrast/concentration: Isovue 370.00 mg/ml; Total Contrast Delivered: 99.0 ml; Total Saline Delivered: 46.8 ml RENAL FUNCTION: Creatinine 0.61 RADIATION DOSE: CT Rad equipment meets quality standard of care and radiation dose reduction techniq ues were employed. CTDIvol: 17.2 - 19.7 mGy. DLP: 2123 mGy-cm.. LIMITATIONS: None. FINDINGS: A large amount of free intraperitoneal air is present in the upper abdomen. This finding was discussed with Dr. Rey in the emergency room as a critical result, 1455 hours 09/20/2017. Free air is worrisome for perforated gastrointestinal tract, colon is favored over upper GI perforation. Patient did drink oral contrast. No extravasation of oral contrast from the gastric bypass pouch in the left upper quadrant. There is no extravasated oral contrast in the peritoneal cavity identified. Oral contrast is seen throughout the small bowel and colon in a nonobstructive pattern. There is col onic diverticulosis without CT evidence of acute diverticulitis. LOWER CHEST: No significant findings. No nodules or infiltrates. LIVER: Normal size. No masses. No dilated ducts. SPLEEN: Normal size. No focal lesions. PANCREAS: No masses. No significant calcifications. No adjacent inflammation or peripancreatic fluid collections. Pancreatic duct not dilated. GALLBLADDER: No identified stones by CT criteria. No inflammatory changes to suggest cholecystitis. ADRENAL GLANDS: Right adrenal gland unremarkable. 3 cm left adrenal gland unchanged from 2015 likely a benign adenoma. RIGHT KIDNEY AND URETER: No solid masses. 1 cm cyst right upper pole kidney. No significant calcifi cations. No hydronephrosis or hydroureter. LEFT KIDNEY AND URETER: No solid masses. No significant calcifications. No hydronephrosis or hydr oureter. AORTA AND VESSELS: No aneurysm. No dissection. Renal arteries, SMA, celiac without stenosis. RETROPERITONEUM: No retroperitoneal adenopathy, hemorrhage or masses. BOWEL AND PERITONEAL CAVITY: As above APPENDIX: Normal. PELVIS: Streak artifact from right hip replacement. Normal size uterus and ovaries. Bladder decompr essed. No free pelvic fluid. ABDOMINAL WALL: No masses. No hernias. BONES: No significant or acute findings. OTHER: No other significant finding. IMPRESSION: Large amount of free intraperitoneal air without definite extravasated oral contrast. F indings are worrisome for bowel perforation, question colon perforation. No leakage of oral contrast from the gastric pouch or proximal small bowel in the left upper quadrant . COMMENT: Pertinent findings on the imaging study reported as a CRITICAL RESULT to MANOJ REY MD [id number] hours on 09/20/2017. Category of Critical Result: Free intraperitoneal air from bowel perforation TECHNICAL DOCUMENTATION: JOB ID: [id number] Quality ID # [id number]: Final reports with documentation of one or more dose reduction techniques (e.g., Au tomated exposure control, adjustment of the mA and/or kV according to patient size, use of iterative reconstruction technique) 2010 [employer]- All Rights Reserved Reading location - IP/workstation name: [email or web address]
[2017-09-20] MEDS ORDERED: DEXTROSE 5%-LACTATED RINGERS 1,000 ML IV ONE (17:32)
[2017-09-20 18:05] VITALS: BP 162/83
== END 2017-09-20 18:00 | disposition short-term general hospital (02) ==
LOC: ER 09:04
DX: K65.9 Peritonitis, unspecified (principal); Z98.84 Bariatric surgery status; R10.9 Unspecified abdominal pain; E11.9 Type 2 diabetes mellitus without complications; R07.9 Chest pain, unspecified; M25.512 Pain in left shoulder; M54.5 Low back pain; M54.2 Cervicalgia; R61 Generalized hyperhidrosis; R68.83 Chills (without fever); R19.7 Diarrhea, unspecified; R11.0 Nausea; R55 Syncope and collapse; I25.10 Atherosclerotic heart disease of native coronary artery without angina pectoris; I10 Essential (primary) hypertension; I25.2 Old myocardial infarction; M25.552 Pain in left hip; G89.29 Other chronic pain; Z88.8 Allergy status to other drugs, medicaments and biological substances; Z87.19 Personal history of other diseases of the digestive system; Z95.5 Presence of coronary angioplasty implant and graft
CPT/HCPCS: 93005; 96376; 99291; 96361; 51702; 96375; 96365; 36415; 82553; 82550; 83690; 84703; 85025; 85652; 86140; 80053; 81001; 84484; 71045; 74177; 93010; A9270 ×2; J3010; J1335; J1885; J2060; C9113; J7030; J7120; S0119; S0164

== ENCOUNTER 2017-09-27 20:08 | Emergency (ER) | payer MEDICARE, MEDICAID ==
[2017-09-27] MEDS ORDERED: FENTANYL CITRATE INJ/PF 100 MCG/2 ML AMPUL IV PRN (20:16)
[2017-09-27] MEDS ORDERED: NORMAL SALINE 1000 ML 1,000 ML IV ONE (20:16)
[2017-09-27] MEDS ORDERED: METOCLOPRAMIDE HCL INJ/PF 10 MG/2 ML SDV IV ONE (20:16)
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
[2017-09-27] MEDS: HYDROMORPHONE HCL INJ/PF 2 MG/ML AMPULE IV PRN ×2 (21:24→23:11)
--- NOTE | 2017-09-27 21:36 | RADIOLOGY REPORT (SQ) ---
EXAM DESCRIPTION: ABDOMEN 2 VIEWS COMPLETED DATE/TIME: 09/27/2017 8:51 pm REASON FOR STUDY: abdominal pain, recent perf COMPARISON: None. NUMBER OF VIEWS: Two views. TECHNIQUE: Supine and erect/decubitus radiographic images of the abdomen acquired. LIMITATIONS: None. FINDINGS: FREE AIR: None. No abnormal gas collections. LUNG BASES: Clear. BOWEL GAS PATTERN: Nonobstructive pattern. No dilated loops or air fluid levels. CALCIFICATIONS: No suspicious calcifications. SOFT TISSUES: No gross mass or suggestion of organomegaly. HARDWARE: None in the abdomen. BONES: No acute fracture. No worrisome bone lesions. OTHER: No other significant finding. IMPRESSION: NO RADIOGRAPHIC EVIDENCE FOR ACUTE ABDOMINAL DISEASE. TECHNICAL DOCUMENTATION: JOB ID: [id number] [employer]- All Rights Reserved Reading location - IP/workstation name: [email or web address]
[2017-09-27 22:17] LABS: ABSOLUTE BASOPHILS # (AUTO) 0.1 10^3/uL (0.0-0.2); ABSOLUTE EOSINOPHILS # (AUTO) 0.2 10^3/uL (0.0-0.6); ABSOLUTE LYMPHOCYTES (AUTO) 2.1 10^3/uL (0.5-4.7); ABSOLUTE MONOCYTES (AUTO) 0.7 10^3/uL (0.1-1.4); ABSOLUTE NEUT (AUTO) 5.1 10^3/uL (1.7-8.2); EOSINOPHILS % (AUTO) 2.4 % (0-6); HEMATOCRIT 30.9 % (36.0-47.0); HEMOGLOBIN 10.1 g/dL (12.0-15.5); LYMPHOCYTES % (AUTO) 25.9 % (13-45); MEAN CORPUSCULAR HEMOGLOBIN 26.8 pg (27.0-33.4); MEAN CORPUSCULAR HGB CONC 32.8 g/dL (32.0-36.0); MEAN CORPUSCULAR VOLUME 82 fl (80-97); PLATELET COUNT 391 10^3/uL (150-450); RED BLOOD COUNT 3.78 10^6/uL (3.72-5.28); RED CELL DISTRIBUTION WIDTH 21.4 % (11.5-14.0); SEGMENTED NEUTROPHILS % (AUTO) 61.7 % (42-78); TOTAL CELLS COUNTED % (AUTO) 100 %; WHITE BLOOD COUNT 8.3 10^3/uL (4.0-10.5)
[2017-09-27 22:44] LABS: ALANINE AMINOTRANSFERASE 30 U/L (9-52); ALBUMIN 3.2 g/dL (3.5-5.0); ALKALINE PHOSPHATASE 84 U/L (38-126); ANION GAP 9 (5-19); ASPARTATE AMINO TRANSFERASE 12 U/L (14-36); BILIRUBIN,DIRECT 0.3 mg/dL (0.0-0.4); BILIRUBIN,TOTAL 0.5 mg/dL (0.2-1.3); BLOOD UREA NITROGEN 11 mg/dL (7-20); CALCIUM 8.9 mg/dL (8.4-10.2); CARBON DIOXIDE 22 mmol/L (22-30); CHLORIDE 112 mmol/L (98-107); GLUCOSE 82 mg/dL (75-110); LIPASE 98.3 U/L (23-300); POTASSIUM 3.8 mmol/L (3.6-5.0); SODIUM 142.7 mmol/L (137-145); TOTAL PROTEIN 5.8 g/dL (6.3-8.2)
--- NOTE | 2017-09-27 23:39 | RADIOLOGY REPORT (SQ) ---
EXAM DESCRIPTION: CT ABDOMEN PELVIS WITH IV CONTRAST COMPLETED DATE/TME: 09/27/2017 21:20 CLINICAL HISTORY: 47 years, Female, generalized abdominal pain, recent perforation COMPARISON: 09/20/2017. TECHNIQUE: All CT scanners at this facility use dose modulation, iterative reconstruction, and/or weight based dosing when appropriate to reduce radiation dose to as low as reasonably achievable (ALARA). [facility]: Dose Right [facility]: CareDose [facility]: Dose Right [facility]: Teradose 4D [facility]: Smart PT [employer] LIMITATIONS: None. FINDINGS: 3 cm left adrenal mass. This has been stable as compared to reports from May 2015. Postsurgical changes at the GE junction. Post surgical changes also present in loops of small bowel in the left mid abdomen. The liver, spleen and pancreas are unremarkable. Areas of scarring in the right kidney. Trace fluid in the pelvis. Diverticulosis without evidence of diverticulitis. Vascular calcification in aorta and its branches. Gallbladder is absent. Unremarkable appendix. IMPRESSION: Stable left adrenal mass Postsurgical changes without evidence of bowel obstruction Trace fluid in the pelvis which may be physiologic Diverticulosis without diverticulitis. TECHNICAL DOCUMENTATION: Quality ID # 436: Final reports with documentation of one or more dose reduction techniques (e.g., Automated exposure control, adjustment of the mA and/or kV according to patient size, use of iterative reconstruction technique) 2010 [employer]- All Rights Reserved
[2017-09-27] MEDS ORDERED: ONDANSETRON ODT 4 MG TAB (6 TAB/ER DISP) PO PRN (23:54)
[2017-09-28 01:00] VITALS: BP 140/72
== END 2017-09-28 01:00 | disposition home or self-care (01) ==
LOC: ER 20:08
DX: R10.84 Generalized abdominal pain (principal); G89.29 Other chronic pain; R19.7 Diarrhea, unspecified; R11.0 Nausea; F41.9 Anxiety disorder, unspecified; I25.10 Atherosclerotic heart disease of native coronary artery without angina pectoris; I25.2 Old myocardial infarction; I10 Essential (primary) hypertension; E11.9 Type 2 diabetes mellitus without complications; F17.200 Nicotine dependence, unspecified, uncomplicated; Z87.11 Personal history of peptic ulcer disease; Z87.19 Personal history of other diseases of the digestive system; Z98.84 Bariatric surgery status
CPT/HCPCS: 96376; 99285; 96361; 96374; 96375; 36415; 83605; 83690; 85025; 80053; 74019; 74177; J2765; J1170; J7030; A9270

== ENCOUNTER 2017-10-07 12:10 | Emergency (ER) | payer MEDICARE, MEDICAID ==
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
[2017-10-07 14:05] LABS: ABSOLUTE BASOPHILS # (AUTO) 0.1 10^3/uL (0.0-0.2); ABSOLUTE EOSINOPHILS # (AUTO) 0.2 10^3/uL (0.0-0.6); ABSOLUTE MONOCYTES (AUTO) 0.7 10^3/uL (0.1-1.4); ABSOLUTE NEUT (AUTO) 4.2 10^3/uL (1.7-8.2); EOSINOPHILS % (AUTO) 3.2 % (0-6); HEMATOCRIT 36.2 % (36.0-47.0); HEMOGLOBIN 11.7 g/dL (12.0-15.5); LYMPHOCYTES % (AUTO) 27.6 % (13-45); MEAN CORPUSCULAR HEMOGLOBIN 26.9 pg (27.0-33.4); MEAN CORPUSCULAR HGB CONC 32.3 g/dL (32.0-36.0); MEAN CORPUSCULAR VOLUME 83 fl (80-97); MONOCYTES % (AUTO) 9.1 % (3-13); PLATELET COUNT 471 10^3/uL (150-450); RED BLOOD COUNT 4.35 10^6/uL (3.72-5.28); RED CELL DISTRIBUTION WIDTH 20.6 % (11.5-14.0); SEGMENTED NEUTROPHILS % (AUTO) 59.1 % (42-78); TOTAL CELLS COUNTED % (AUTO) 100 %; WHITE BLOOD COUNT 7.2 10^3/uL (4.0-10.5)
[2017-10-07 14:28] LABS: ALANINE AMINOTRANSFERASE 21 U/L (9-52); ALBUMIN 3.7 g/dL (3.5-5.0); ALKALINE PHOSPHATASE 127 U/L (38-126); ANION GAP 16 (5-19); ASPARTATE AMINO TRANSFERASE 15 U/L (14-36); BILIRUBIN,DIRECT 0.5 mg/dL (0.0-0.4); BILIRUBIN,TOTAL 0.5 mg/dL (0.2-1.3); BLOOD UREA NITROGEN 9 mg/dL (7-20); CALCIUM 9.5 mg/dL (8.4-10.2); CARBON DIOXIDE 21 mmol/L (22-30); CHLORIDE 108 mmol/L (98-107); GLUCOSE 78 mg/dL (75-110); POTASSIUM 3.5 mmol/L (3.6-5.0); SODIUM 145.2 mmol/L (137-145); TOTAL PROTEIN 6.5 g/dL (6.3-8.2)
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
--- NOTE | 2017-10-07 15:54 | RADIOLOGY REPORT (SQ) ---
EXAM DESCRIPTION: CT ABD/PELVIS NO ORAL OR IV COMPLETED DATE/TIME: 10/07/2017 3:31 pm REASON FOR STUDY: abd pain COMPARISON: 09/20/2017 TECHNIQUE: CT scan of the abdomen and pelvis performed without intravenous or oral contrast. Images reviewed with lung, soft tissue, and bone windows. Reconstructed coronal and sagittal MPR images revi ewed. All images stored on PACS. All CT scanners at this facility use dose modulation, iterative reconstruction, and/or weight based d osing when appropriate to reduce radiation dose to as low as reasonably achievable (ALARA). [facility]: Dose Right [facility]: CareDose [facility]: Dose Right [facility]: Teradose 4D [facility]: Smart Mantis Vision RADIATION DOSE: CT Rad equipment meets quality standard of care and radiation dose reduction techniq ues were employed. CTDIvol: 16.0 mGy. DLP: 899 mGy-cm.mGy. LIMITATIONS: None. FINDINGS: LOWER CHEST: No significant findings. No nodules or infiltrates. NON-CONTRASTED LIVER, SPLEEN, ADRENALS: No significant or acute findings in the liver or spleen. Sta ble left adrenal mass. PANCREAS: No masses. No peripancreatic inflammatory changes. GALLBLADDER: Surgically absent. RIGHT KIDNEY AND URETER: No suspicious masses. Assessment limited by lack of IV contrast. No signif icant calcifications. No hydronephrosis or hydroureter. LEFT KIDNEY AND URETER: No suspicious masses. Assessment limited by lack of IV contrast. No signifi cant calcifications. No hydronephrosis or hydroureter. AORTA AND RETROPERITONEUM: No aneurysm. No retroperitoneal masses or adenopathy. BOWEL AND PERITONEAL CAVITY: No obvious masses or inflammatory changes. No free fluid. Gastric bypas s. APPENDIX: Normal. PELVIS, BLADDER, AND ABDOMINAL WALL:Partially obscured by beam hardening artifact from a right hip ar throplasty. The urinary bladder appears grossly normal. Uterus is unremarkable. BONES: Congenital left hip dysplasia. Right hip arthroplasty. OTHER: No other significant finding. IMPRESSION: No acute findings in the abdomen or pelvis to explain the patient's pain. Other finding s as described. COMMENT: Quality ID # [id number]: Final reports with documentation of one or more dose reduction techniques (e.g., Automated exposure control, adjustment of the mA and/or kV according to patient size, use of iterative reconstruction technique) TECHNICAL DOCUMENTATION: JOB ID: [id number]- All Rights Reserved Reading location - IP/workstation name: [email or web address]
[2017-10-07 17:23] VITALS: BP 138/83
== END 2017-10-07 18:21 | disposition home or self-care (01) ==
LOC: ER 12:10
DX: R10.9 Unspecified abdominal pain (principal); M25.551 Pain in right hip; M25.552 Pain in left hip; G89.29 Other chronic pain; R19.7 Diarrhea, unspecified; R11.0 Nausea; F17.210 Nicotine dependence, cigarettes, uncomplicated; I25.10 Atherosclerotic heart disease of native coronary artery without angina pectoris; I25.2 Old myocardial infarction; I10 Essential (primary) hypertension; E11.9 Type 2 diabetes mellitus without complications
CPT/HCPCS: 36415; 74176; 80053; 83735; 85025; 99285

== ENCOUNTER 2017-12-25 19:10 | Emergency (ER) | payer MEDICARE, MEDICAID ==
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
[2017-12-25] MEDS ORDERED: MORPHINE SULFATE 10 MG/ML INJ IV ONE (22:17)
[2017-12-25] MEDS ORDERED: ONDANSETRON HCL INJ/PF 4 MG/2 ML SDV IV ONE (22:17)
[2017-12-25 22:29] LABS: APPEARANCE,URINE SLIGHTLY-CLOUDY; BILIRUBIN,URINE NEGATIVE (NEGATIVE); COLOR,URINE YELLOW; GLUCOSE, URINE NEGATIVE (NEGATIVE); KETONES,URINE 80 mg/dL (NEGATIVE); LEUKOCYTE ESTERASE,URINE NEGATIVE (NEGATIVE); NITRITE,URINE NEGATIVE (NEGATIVE); PROTEIN,URINE 30 mg/dL (NEGATIVE); URINE SPECIFIC GRAVITY 1.023; UROBILINOGEN,URINE NEGATIVE mg/dL (<2.0)
[2017-12-25 22:29] LABS: ABSOLUTE EOSINOPHILS # (AUTO) 0.1 10^3/uL (0.0-0.6); ABSOLUTE LYMPHOCYTES (AUTO) 1.7 10^3/uL (0.5-4.7); ABSOLUTE MONOCYTES (AUTO) 0.5 10^3/uL (0.1-1.4); ABSOLUTE NEUT (AUTO) 4.3 10^3/uL (1.7-8.2); BASOPHILS % (AUTO) 0.7 % (0-2); EOSINOPHILS % (AUTO) 1.1 % (0-6); HEMATOCRIT 35.2 % (36.0-47.0); HEMOGLOBIN 11.5 g/dL (12.0-15.5); LYMPHOCYTES % (AUTO) 25.6 % (13-45); MEAN CORPUSCULAR HEMOGLOBIN 28.3 pg (27.0-33.4); MEAN CORPUSCULAR HGB CONC 32.6 g/dL (32.0-36.0); MEAN CORPUSCULAR VOLUME 87 fl (80-97); MONOCYTES % (AUTO) 6.9 % (3-13); PLATELET COUNT 589 10^3/uL (150-450); RED BLOOD COUNT 4.06 10^6/uL (3.72-5.28); RED CELL DISTRIBUTION WIDTH 20.7 % (11.5-14.0); SEGMENTED NEUTROPHILS % (AUTO) 65.7 % (42-78); TOTAL CELLS COUNTED % (AUTO) 100 %; WHITE BLOOD COUNT 6.6 10^3/uL (4.0-10.5)
[2017-12-25 23:11] LABS: ALANINE AMINOTRANSFERASE 17 U/L (9-52); ALBUMIN 3.7 g/dL (3.5-5.0); ALKALINE PHOSPHATASE 124 U/L (38-126); ANION GAP 17 (5-19); ASPARTATE AMINO TRANSFERASE 38 U/L (14-36); BILIRUBIN,DIRECT 0.4 mg/dL (0.0-0.4); BILIRUBIN,TOTAL 0.5 mg/dL (0.2-1.3); CALCIUM 9.1 mg/dL (8.4-10.2); CHLORIDE 108 mmol/L (98-107); GLUCOSE 53 mg/dL (75-110); LIPASE 156.2 U/L (23-300); POTASSIUM 3.7 mmol/L (3.6-5.0); TOTAL PROTEIN 7.2 g/dL (6.3-8.2)
[2017-12-25 23:38] LABS: BLOOD UREA NITROGEN < 2 mg/dL (7-20); CARBON DIOXIDE 10 mmol/L (22-30)
[2017-12-26] MEDS ORDERED: HYDROMORPHONE HCL INJ/PF 2 MG/ML AMPULE IV ONE (01:34)
[2017-12-26] MEDS ORDERED: METOCLOPRAMIDE HCL INJ/PF 10 MG/2 ML SDV IV ONE (01:34)
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
--- NOTE | 2017-12-26 02:42 | RADIOLOGY REPORT (SQ) ---
EXAM DESCRIPTION: CT ABDOMEN PELVIS WITH IV CONTRAST COMPLETED DATE/TME: 12/26/2017 01:07 CLINICAL HISTORY: Diffuse abdominal pain. COMPARISON: 10/07/2017 TECHNIQUE: CT of the abdomen and pelvis performed following IV administration of 94 mL of Omnipaque 350. DLP: 2288 mGycm FINDINGS: Lung Bases: The visualized lung bases are clear. Bones: No destructive bone lesions identified. Degenerative change of the spine. Bilateral total hip arthroplasties. Fluid collection in the left gluteal soft tissues extending to the left hip arthroplasty measuring 7.0 x 3.2 cm. Abdomen: Liver: The liver has normal size and density. No intrahepatic mass or biliary dilatation. Gallbladder: Prior cholecystectomy. Spleen, Pancreas, and Adrenal Glands: There is a 2.8 x 2.7 cm left adrenal nodule. Relative washout greater than 40% compatible with benign adrenal adenoma. No follow-up required. Analysis of the right adrenal gland, pancreas, or spleen. Kidneys: The kidneys have normal size and contour without evidence of solid mass or hydronephrosis. Bosniak class I right renal cyst. Vasculature: Aortoiliac atherosclerosis. IVC is unremarkable. The portal vein is patent. The proximal visceral and renal arteries are patent. Stomach: Postoperative change of the stomach. Other: No free intraperitoneal air. No free fluid or lymphadenopathy. Fat-containing left inguinal hernia. Pelvis: Bladder: Urinary bladder is unremarkable. Bowel: No dilated loops of large or small bowel. Appendix: The appendix is not identified. Pelvis: Uterus is not enlarged. IMPRESSION: 1. There is a 7.2 cm fluid collection the left gluteal soft tissues adjacent to the left hip arthroplasty. This may represent a postoperative seroma however abscess or hematoma could produce a similar appearance. 2. 2.8 cm benign left adrenal adenoma. No follow-up required. This exam was performed according to our departmental dose-optimization program, which includes automated exposure control, adjustment of the mA and/or kV according to patient size and/or use of iterative reconstruction technique.
[2017-12-26] MEDS ORDERED: RINGERS SOLUTION,LACTATED 1,000 ML IV ONE (03:22)
[2017-12-26] MEDS ORDERED: ONDANSETRON ODT 4 MG TAB (6 TAB/ER DISP) PO PRN (03:32)
[2017-12-26] MEDS ORDERED: DEXTROSE 50%-WATER 25 GM/50 ML DISP.SYRIN IV ONE ×2 (03:35→03:36)
[2017-12-26 04:56] VITALS: BP 130/71
== END 2017-12-26 04:59 | disposition home or self-care (01) ==
LOC: ER 19:10
DX: R11.2 Nausea with vomiting, unspecified (principal); R19.7 Diarrhea, unspecified; R10.84 Generalized abdominal pain; D64.9 Anemia, unspecified; E86.0 Dehydration; I11.0 Hypertensive heart disease with heart failure; I50.9 Heart failure, unspecified; E78.5 Hyperlipidemia, unspecified; F17.200 Nicotine dependence, unspecified, uncomplicated
CPT/HCPCS: 99284; 96374; 96375; 36415; 83690; 85025; 80053; 81001; 74177; J3490; J2765; J2270; J1170; J2405; A9270

== ENCOUNTER → 2018-04-13 | Day surgery (SDC) | payer MEDICARE ==
--- NOTE | 2018-04-13 16:01 | RADIOLOGY REPORT (SQ) ---
EXAM DESCRIPTION: ARTHRO KNEE INJECTION; FLUORO/NEEDLE PLACEMENT COMPLETED DATE/TIME: 04/13/2018 3:04 pm REASON FOR STUDY: LEFT KNEE PAIN (M25.562) M25.562 PAIN IN LEFT KNEE COMPARISON: None. FLUOROSCOPY TIME: 1.01 minutes 1 images saved to PACS. LIMITATIONS: None. PROCEDURE: Procedure, risks, benefits and alternatives explained to patient who then gave written c onsent. The left knee was marked and a time-out was called for correct marking verification. Entry site marked using fluoroscopic guidance. Knee prepped and draped using sterile technique. Local an esthesia achieved using 1% lidocaine injection. Hypodermic needle introduced into the joint space u nder direct fluoroscopic visualization. Non-ionic contrast instilled to confirm intra-articular posi tion. Dilute gadolinium solution then injected. Needle removed and entry site covered with sterile bandage. No immediate complications noted. TECHNIQUE: Digital images acquired during fluoroscopy and stored on PACS. Patient immediately take n to the MR suite for additional imaging. INJECTION LOCATION: Left knee. CONTRAST TYPE AND AMOUNT: 50 cc dilute gadolinium 2 cc Omnipaque IMPRESSION: SUCCESSFUL NEEDLE PLACEMENT AND INJECTION FOR LEFT KNEE MR ARTHROGRAM. COMMENT: Quality ID 145: Final reports for procedures using fluoroscopy that document radiation exp osure indices, or exposure time and number of fluorographic images (if radiation exposure indices are not available) TECHNICAL DOCUMENTATION: JOB ID: [id number] [employer]- All Rights Reserved Reading location - IP/workstation name: [facility]
--- NOTE | 2018-04-13 16:01 | RADIOLOGY REPORT (SQ) ---
EXAM DESCRIPTION: ARTHRO KNEE INJECTION; FLUORO/NEEDLE PLACEMENT COMPLETED DATE/TIME: 04/13/2018 3:04 pm REASON FOR STUDY: LEFT KNEE PAIN (M25.562) M25.562 PAIN IN LEFT KNEE COMPARISON: None. FLUOROSCOPY TIME: 1.01 minutes 1 images saved to PACS. LIMITATIONS: None. PROCEDURE: Procedure, risks, benefits and alternatives explained to patient who then gave written c onsent. The left knee was marked and a time-out was called for correct marking verification. Entry site marked using fluoroscopic guidance. Knee prepped and draped using sterile technique. Local an esthesia achieved using 1% lidocaine injection. Hypodermic needle introduced into the joint space u nder direct fluoroscopic visualization. Non-ionic contrast instilled to confirm intra-articular posi tion. Dilute gadolinium solution then injected. Needle removed and entry site covered with sterile bandage. No immediate complications noted. TECHNIQUE: Digital images acquired during fluoroscopy and stored on PACS. Patient immediately take n to the MR suite for additional imaging. INJECTION LOCATION: Left knee. CONTRAST TYPE AND AMOUNT: 50 cc dilute gadolinium 2 cc Omnipaque IMPRESSION: SUCCESSFUL NEEDLE PLACEMENT AND INJECTION FOR LEFT KNEE MR ARTHROGRAM. COMMENT: Quality ID 145: Final reports for procedures using fluoroscopy that document radiation exp osure indices, or exposure time and number of fluorographic images (if radiation exposure indices are not available) TECHNICAL DOCUMENTATION: JOB ID: [id number] [employer]- All Rights Reserved Reading location - IP/workstation name: [email or web address]
--- NOTE | 2018-04-13 16:30 | RADIOLOGY REPORT (SQ) ---
EXAM DESCRIPTION: MRI LT LOWER JOINT WITH COMPLETED DATE/TIME: 04/13/2018 4:02 pm REASON FOR STUDY: LEFT KNEE PAIN (M25.562) M25.562 PAIN IN LEFT KNEE COMPARISON: Images from knee arthrogram. TECHNIQUE: Leftknee images acquired and stored on PACS. Multiplanar images post arthrographic T1 an d T2 fat saturated, proton density fat saturated and non-fat saturated T1. LIMITATIONS: The study is significantly degraded by hardware artifact, proximal screws through the t ibia. FINDINGS: JOINT AND BURSAE: Mild contrast within the joint. Assessment for loose bodies limited. BONE CORTEX AND MARROW: Limiting tibial artifact. Normal marrow signal in the distal femur. ACL: Limited assessment. No discrete intact fibers suggested. PCL: Intact. MCL: Intact as assessed. LCL: Largely obscured. MEDIAL MENISCUS: Artifact, largely nondiagnostic. Non extruded appearance. LATERAL MENISCUS: Nondiagnostic related to regional artifact. MEDIAL COMPARTMENT: Limited evaluation. No focal chondral defects grossly suggested in the femur. LATERAL COMPARTMENT: Limited evaluation. No focal chondral defects grossly suggested in the femur. PATELLA: Normal location. Irregular apical chondromalacia patella. Probable full-thickness fissurin g near the apex with mild underlying reactive bone change. EXTENSOR MECHANISM: Intact. SOFT TISSUES: Intact as assessed. OTHER: No other significant finding. IMPRESSION: 1. Limited diagnostic yield, significant artifact from previous surgery. 2. ACL deficiency suspected. 3. Chondromalacia patella. TECHNICAL DOCUMENTATION: JOB ID: [id number] [employer]- All Rights Reserved Reading location - IP/workstation name: [email or web address]
== END ==
LOC: RAD 14:00
PROVIDERS: ATTEND Student in an Organized Health Care Education/Training Program
DX: M25.562 Pain in left knee (principal); M22.42 Chondromalacia patellae, left knee
CPT/HCPCS: 77002

== ENCOUNTER → 2019-04-06 | Outpatient (CLI) | payer MEDICARE, MEDICAID ==
--- NOTE | 2019-04-06 14:35 | RADIOLOGY REPORT (SQ) ---
EXAM DESCRIPTION: HIP BILATERAL COMPLETED DATE/TIME: 04/06/2019 2:14 pm REASON FOR STUDY: PAIN IN LEFT HIP (M25.552) COMPARISON: None. NUMBER OF VIEWS: Two views. TECHNIQUE: AP pelvis and additional frog-leg view of the right and left hip. LIMITATIONS: None. FINDINGS: MINERALIZATION: Normal. PRIMARY HIP: No fracture or dislocation. Total hip arthroplasty hardware appears in expected positio n. OPPOSITE HIP: No fracture or dislocation. Total hip arthroplasty hardware appears in expected positi on. .. PUBIS AND ISCHIUM: No fracture. PELVIS: No fracture. SACRUM: No fracture or dislocation. No worrisome bone lesions. LOWER LUMBAR SPINE: No fracture or dislocation. No worrisome bone lesions. No significant disc disea se. SOFT TISSUES: IUD present. OTHER: No other significant finding. IMPRESSION: No fracture or dislocation. Total hip arthroplasty hardware appears in expected positio n. TECHNICAL DOCUMENTATION: JOB ID: [id number] [place]-72 2010 [employer]- All Rights Reserved Reading location - IP/workstation name: [email or web address]
== END ==
LOC: RAD 13:15
PROVIDERS: ATTEND Pain Medicine Interventional Pain Medicine
DX: M25.552 Pain in left hip (principal)
CPT/HCPCS: 73522

== ENCOUNTER → 2019-04-26 | Outpatient (CLI) | payer MEDICAID, MEDICARE ==
--- NOTE | 2019-04-26 14:05 | RADIOLOGY REPORT (SQ) ---
EXAM DESCRIPTION: MRI LUMBAR SPINE WITHOUT COMPLETED DATE/TIME: 04/26/2019 12:47 pm REASON FOR STUDY: M54.5 LOW BACK PAIN M54.5 LOW BACK PAIN COMPARISON: 12/05/2016 TECHNIQUE: Sagittal and Axial imaging includes T1, T2, STIR and gradient echo sequences. Coronal T2/ HASTE imaging. LIMITATIONS: None. FINDINGS: VISUALIZED UPPER ABDOMEN: Limited evaluation. No acute or suspicious findings suggested. SEGMENTATION: No transitional anatomy. The lowest well-developed disc space is labeled L5-S1. ALIGNMENT: There is grade 1 anterolisthesis of L4 on L5 new from prior study. VERTEBRAE: Intact. BONE MARROW: Normal. No marrow replacement or reactive changes. DISC SIGNAL: Multilevel disc space narrowing and desiccation. Findings are most prominent from L3-L4 through L5-S1. POSTERIOR ELEMENTS: Generally intact. No pars defect evident. HARDWARE: None in the spine. CORD AND CONUS: Normal in size and signal intensity. Conus at the appropriate level. SOFT TISSUES: No aortic aneurysm seen. No bulky retroperitoneal adenopathy or mass. No paraspinal mas s or fluid. L1-L2: No significant spinal stenosis or exit foraminal stenosis. L2-L3: No significant spinal stenosis or exit foraminal stenosis. L3-L4: Mild annular disc bulging. Loss of normal water signal consistent with desiccation. No signi ficant foraminal narrowing. L4-L5: Grade 1 anterolisthesis of L4 on L5. Annular disc bulging. There is bilateral facet arthropa thy. This combination results in mild central canal stenosis. Mild asymmetric narrowing of the left neural foramina with flattening of the exiting nerve root. L5-S1: No significant spinal stenosis or exit foraminal stenosis. LOWER THORACIC: Incompletely imaged. No stenosis seen. SACRUM: Visualized upper sacrum intact. OTHER: No other significant findings. IMPRESSION: There is mild multilevel spondylosis. There is now all anterolisthesis of L4 on L5. Th is along with annular disc bulging and facet arthropathy result in mild central stenosis in asymmetri c narrowing of the left neural foramina. TECHNICAL DOCUMENTATION: JOB ID: [id number] [employer]- All Rights Reserved Reading location - IP/workstation name: [email or web address]
== END ==
LOC: RAD 12:01
PROVIDERS: ATTEND Pain Medicine Interventional Pain Medicine
DX: M54.5 Low back pain (principal)
CPT/HCPCS: 72148

== ENCOUNTER 2019-06-12 06:59 | Emergency (ER) | payer MEDICARE, MEDICAID ==
[2019-06-12 08:10] LABS: APPEARANCE,URINE CLEAR; BILIRUBIN,URINE NEGATIVE (NEGATIVE); COLOR,URINE YELLOW; GLUCOSE, URINE NEGATIVE (NEGATIVE); KETONES,URINE NEGATIVE (NEGATIVE); LEUKOCYTE ESTERASE,URINE TRACE (NEGATIVE); NITRITE,URINE NEGATIVE (NEGATIVE); PROTEIN,URINE NEGATIVE (NEGATIVE); UROBILINOGEN,URINE NEGATIVE mg/dL (<2.0)
--- NOTE | 2019-06-12 09:35 | RADIOLOGY REPORT (SQ) ---
EXAM DESCRIPTION: KNEE LEFT 3 VIEWS COMPLETED DATE/TIME: 06/12/2019 9:20 am REASON FOR STUDY: FALL/LEFT KNEE PAIN/ PRIOR SURGERY COMPARISON: None. FINDINGS: Three views left knee. Osteopenic. Hardware in the proximal tibia. No acute fracture or bone lesion. No effusion. TECHNICAL DOCUMENTATION: JOB ID: [id number] Reading location - IP/workstation name: [email or web address]
--- NOTE | 2019-06-12 09:36 | RADIOLOGY REPORT (SQ) ---
EXAM DESCRIPTION: L SPINE WHOLE COMPLETED DATE/TIME: 06/12/2019 9:20 am REASON FOR STUDY: FALL 2 DAYS AGO/LOW BACK PAIN/PRIOR SURGERY COMPARISON: None. FINDINGS: Five view lumbosacral spine including obliques. Grade 1 listhesis L4-5 with disc space narrowing at this level and at the lumbosacral junction. No fracture or bone lesion. Facet arthropathy. Heavy vascular calcification without gross aneurysm suspected. TECHNICAL DOCUMENTATION: JOB ID: [id number] Reading location - IP/workstation name: [email or web address]
--- NOTE | 2019-06-12 09:36 | RADIOLOGY REPORT (SQ) ---
EXAM DESCRIPTION: CHEST SINGLE VIEW COMPLETED DATE/TIME: 06/12/2019 9:20 am REASON FOR STUDY: WHEEEZE/FALL/LEFT SIDE RIB PAIN COMPARISON: 2015 FINDINGS: One-view chest, AP view. Negative study without pneumothorax or mediastinal widening. No suspicious lung opacities or gross d isplaced fracture. TECHNICAL DOCUMENTATION: JOB ID: [id number] Reading location - IP/workstation name: [email or web address]
--- NOTE | 2019-06-12 09:36 | RADIOLOGY REPORT (SQ) ---
EXAM DESCRIPTION: SHOULDER LEFT 2 OR MORE VIEWS COMPLETED DATE/TIME: 06/12/2019 9:20 am REASON FOR STUDY: FALL/PAIN COMPARISON: None. NUMBER OF VIEWS: Three views. TECHNIQUE: Internal rotation, external rotation, and Y view images acquired of the left shoulder. LIMITATIONS: None. FINDINGS: MINERALIZATION: Normal. BONES: No acute fracture. No worrisome bone lesions. JOINTS: No dislocation. Mild glenohumeral and acromioclavicular osteoarthropathy VISUALIZED LUNGS AND RIBS: No pneumothorax. No rib fracture. SOFT TISSUES: No radiopaque foreign body. OTHER: No other significant finding. IMPRESSION: No evidence of acute bony abnormality of the left shoulder. Mild glenohumeral and acromioclavicular osteoarthropathy. TECHNICAL DOCUMENTATION: JOB ID: [id number] 2010 [email or web address]- All Rights Reserved Reading location - IP/workstation name: [email or web address]
--- NOTE | 2019-06-12 09:39 | RADIOLOGY REPORT (SQ) ---
EXAM DESCRIPTION: WRIST LEFT 3 VIEWS COMPLETED DATE/TIME: 06/12/2019 9:20 am REASON FOR STUDY: FALL/PAIN COMPARISON: None. FINDINGS: Four views left wrist including navicular. Slight deformity of the distal pole of the scaphoid. Suspect degenerative spurring and/or old fractu re. More acute injury is felt to be unlikely but correlation with any snuffbox tenderness and mechan ism of injury recommended. Carpal alignment looks anatomic. Normal bone density. TECHNICAL DOCUMENTATION: JOB ID: [id number] Reading location - IP/workstation name: [email or web address]
--- NOTE | 2019-06-12 09:39 | RADIOLOGY REPORT (SQ) ---
EXAM DESCRIPTION: HIP LEFT AP/LATERAL COMPLETED DATE/TIME: 06/12/2019 9:20 am REASON FOR STUDY: FALL x 3 DAYS AGO, PAIN COMPARISON: 08/14/2017 NUMBER OF VIEWS: Two views. TECHNIQUE: AP pelvis and additional frog-leg view of the left hip. LIMITATIONS: None. FINDINGS: MINERALIZATION: Normal. LEFT HIP: No fracture or dislocation. Postoperative changes from the total hip arthroplasty. RIGHT HIP: No fracture or dislocation. Postoperative changes from the total hip arthroplasty. PUBIS AND ISCHIUM: No fracture. Mild degenerative changes at the pubic symphysis. SACRUM: No fracture or dislocation. No worrisome bone lesions. LOWER LUMBAR SPINE: No fracture or dislocation. No worrisome bone lesions. Mild lower lumbar spondyl osis. SOFT TISSUES: Scattered pelvic phleboliths. Metallic clip overlies midline pelvis. OTHER: No other significant finding. IMPRESSION: Bilateral total hip arthroplasties without evidence of acute bony abnormality. TECHNICAL DOCUMENTATION: JOB ID: [id number] 2010 [employer]- All Rights Reserved Reading location - IP/workstation name: [email or web address]
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
[2019-06-12 11:16] VITALS: BP 143/102
== END 2019-06-12 11:17 | disposition home or self-care (01) ==
LOC: ER 06:59
DX: S63.502A Unspecified sprain of left wrist, initial encounter (principal); M25.512 Pain in left shoulder; M54.5 Low back pain; M25.562 Pain in left knee; M25.552 Pain in left hip; W10.9XXA Fall (on) (from) unspecified stairs and steps, initial encounter; F17.210 Nicotine dependence, cigarettes, uncomplicated; I50.9 Heart failure, unspecified; I25.10 Atherosclerotic heart disease of native coronary artery without angina pectoris; I25.2 Old myocardial infarction; E78.00 Pure hypercholesterolemia, unspecified; I11.0 Hypertensive heart disease with heart failure; E11.9 Type 2 diabetes mellitus without complications; Z98.84 Bariatric surgery status
CPT/HCPCS: 71045; 72110; 81001; 99283

== ENCOUNTER 2019-06-26 22:15 | Emergency (ER) | payer MEDICARE, MEDICAID ==
[2019-06-26 22:22] VITALS: BP 178/102
--- NOTE | 2019-06-26 23:26 | RADIOLOGY REPORT (SQ) ---
CLINICAL INDICATION: pain and injury seen 06/11. . TECHNIQUE: 4 view(s) were obtained of the left wrist. COMPARISON: June 12, 2011. FINDINGS: No acute displaced fracture is identified of the wrist. There is a dorsal instability pattern, similar to prior. No acute alignment abnormality. Mild osteoarthritis. Surrounding soft tissues are unremarkable. IMPRESSION: No evidence of acute displaced fracture of the wrist. Dorsal instability (DISI) pattern to the wrist. This is similar to prior examination and suggestive of scapholunate ligament injury
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
== END 2019-06-26 23:26 | disposition home or self-care (01) ==
LOC: ER 22:15
DX: M25.532 Pain in left wrist (principal); F17.210 Nicotine dependence, cigarettes, uncomplicated; I50.9 Heart failure, unspecified; I25.10 Atherosclerotic heart disease of native coronary artery without angina pectoris; E78.00 Pure hypercholesterolemia, unspecified; I11.0 Hypertensive heart disease with heart failure; E11.9 Type 2 diabetes mellitus without complications; I25.2 Old myocardial infarction; Z98.84 Bariatric surgery status; Z90.49 Acquired absence of other specified parts of digestive tract
CPT/HCPCS: 99283; 99406

== ENCOUNTER 2019-09-17 13:05 | Emergency (ER) | payer MEDICARE, MEDICAID ==
[2019-09-17] MEDS ORDERED: IPRATROPIUM/ALBUTEROL 0.5-2.5 MG/3 ML AMPUL NEB ONE (13:34)
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
[2019-09-17 14:27] LABS: ABSOLUTE BASOPHILS # (AUTO) 0.1 10^3/uL (0.0-0.2); ABSOLUTE EOSINOPHILS # (AUTO) 0.1 10^3/uL (0.0-0.6); ABSOLUTE MONOCYTES (AUTO) 0.6 10^3/uL (0.1-1.4); ABSOLUTE NEUT (AUTO) 4.3 10^3/uL (1.7-8.2); BASOPHILS % (AUTO) 0.7 % (0-2); EOSINOPHILS % (AUTO) 1.1 % (0-6); HEMATOCRIT 36.9 % (36.0-47.0); HEMOGLOBIN 12.5 g/dL (12.0-15.5); LYMPHOCYTES % (AUTO) 37.5 % (13-45); MEAN CORPUSCULAR HEMOGLOBIN 31.5 pg (27.0-33.4); MEAN CORPUSCULAR HGB CONC 33.9 g/dL (32.0-36.0); MEAN CORPUSCULAR VOLUME 93 fl (80-97); MONOCYTES % (AUTO) 7.2 % (3-13); PLATELET COUNT 412 10^3/uL (150-450); RED BLOOD COUNT 3.98 10^6/uL (3.72-5.28); SEGMENTED NEUTROPHILS % (AUTO) 53.5 % (42-78); TOTAL CELLS COUNTED % (AUTO) 100 %
[2019-09-17] MEDS: MAGNESIUM SULFATE/D5W 1 GM/100 ML RTUPB IV SCH ×2 (14:37→15:41)
--- NOTE | 2019-09-17 14:41 | RADIOLOGY REPORT (SQ) ---
EXAM DESCRIPTION: CHEST SINGLE VIEW IMAGES COMPLETED DATE/TIME: 09/17/2019 1:13 pm REASON FOR STUDY: cough. COMPARISON: 06/12/2019 EXAM PARAMETERS: NUMBER OF VIEWS: One view. TECHNIQUE: Single frontal radiographic view of the chest acquired. RADIATION DOSE: NA LIMITATIONS: None. FINDINGS: LUNGS AND PLEURA: No opacities, masses or pneumothorax. No pleural effusion. MEDIASTINUM AND HILAR STRUCTURES: No masses. Contour normal. HEART AND VASCULAR STRUCTURES: Moderate cardiomegaly is stable. No pulmonary vascular congestion. BONES: No acute findings. HARDWARE: None in the chest. OTHER: No other significant finding. IMPRESSION: NO ACUTE RADIOGRAPHIC FINDING IN THE CHEST. TECHNICAL DOCUMENTATION: JOB ID: [id number] 2010 [employer]- All Rights Reserved Reading location - IP/workstation name: [email or web address]
[2019-09-17 14:44] LABS: ALBUMIN 3.8 g/dL (3.5-5.0); ALKALINE PHOSPHATASE 75 U/L (38-126); ANION GAP 5 (5-19); ASPARTATE AMINO TRANSFERASE 19 U/L (14-36); BILIRUBIN,TOTAL 0.4 mg/dL (0.2-1.3); BLOOD UREA NITROGEN 12 mg/dL (7-20); CALCIUM 8.9 mg/dL (8.4-10.2); CARBON DIOXIDE 28 mmol/L (22-30); CHLORIDE 103 mmol/L (98-107); GLUCOSE 76 mg/dL (75-110); POTASSIUM 4.8 mmol/L (3.6-5.0); TOTAL PROTEIN 6.6 g/dL (6.3-8.2)
[2019-09-17 14:56] LABS: NT PRO BNP 145 pg/mL (<125); TROPONIN I < 0.012 ng/mL
[2019-09-17] MEDS ORDERED: METHYLPREDNISOLONE INJ 125 MG/2 ML SDV IV ONE (15:35)
[2019-09-17 16:32] VITALS: BP 154/79
--- NOTE | 2019-09-17 22:40 | EKG REPORT ---
SEVERITY:- NORMAL ECG - SINUS RHYTHM : Confirmed by: Maria Alejandra Johnson MD 17-Sep-2019 22:40:35
== END 2019-09-17 16:16 | disposition home or self-care (01) ==
LOC: ER 13:05
DX: J20.9 Acute bronchitis, unspecified (principal); E83.41 Hypermagnesemia; R05 Cough; R06.2 Wheezing; F17.200 Nicotine dependence, unspecified, uncomplicated; E11.9 Type 2 diabetes mellitus without complications; I10 Essential (primary) hypertension; I25.10 Atherosclerotic heart disease of native coronary artery without angina pectoris; Z20.828 Contact with and (suspected) exposure to other viral communicable diseases; Z87.01 Personal history of pneumonia (recurrent); Z79.899 Other long term (current) drug therapy
CPT/HCPCS: 93005; 94640; 99284; 96375; 96365; 36415; 87040; 83735; 85025; 87077; 80053; 84484; 87150 ×26; 83880; 71045; 93010; U0003; J2930; J3475; A9270; C9803; 87635; J7620

== ENCOUNTER 2019-12-10 10:42 | Emergency (ER) | payer MEDICARE, MEDICAID ==
[2019-12-10] MEDS: NORMAL SALINE 1000 ML 1,000 ML IV PRN ×2 (11:15→12:04)
[2019-12-10 11:19] LABS: ABSOLUTE BASOPHILS # (AUTO) 0.1 10^3/uL (0.0-0.2); ABSOLUTE EOSINOPHILS # (AUTO) 0.1 10^3/uL (0.0-0.6); ABSOLUTE LYMPHOCYTES (AUTO) 3.3 10^3/uL (0.5-4.7); ABSOLUTE MONOCYTES (AUTO) 0.6 10^3/uL (0.1-1.4); ABSOLUTE NEUT (AUTO) 4.3 10^3/uL (1.7-8.2); BASOPHILS % (AUTO) 0.7 % (0-2); EOSINOPHILS % (AUTO) 1.5 % (0-6); HEMATOCRIT 36.5 % (36.0-47.0); HEMOGLOBIN 12.4 g/dL (12.0-15.5); LYMPHOCYTES % (AUTO) 39.7 % (13-45); MEAN CORPUSCULAR HEMOGLOBIN 31.1 pg (27.0-33.4); MEAN CORPUSCULAR VOLUME 91 fl (80-97); MONOCYTES % (AUTO) 7.5 % (3-13); PLATELET COUNT 585 10^3/uL (150-450); RED CELL DISTRIBUTION WIDTH 21.8 % (11.5-14.0); SEGMENTED NEUTROPHILS % (AUTO) 50.6 % (42-78); TOTAL CELLS COUNTED % (AUTO) 100 %; WHITE BLOOD COUNT 8.4 10^3/uL (4.0-10.5)
[2019-12-10] MEDS ORDERED: CEFEPIME 2 GM/D5W RTU 2 GM/50 ML RTUPB IV ONE (11:24)
[2019-12-10 11:25] LABS: INTERNATIONAL RATION (INR) 0.97; PARTIAL THROMBOPLASTIN TIME 33.7 SEC (23.5-35.8); PROTHROMBIN TIME 13.1 SEC (11.4-15.4)
[2019-12-10] MEDS ORDERED: VANCOMYCIN HCL INJ 1000 MG VIAL IV ONE (11:25)
--- NOTE | 2019-12-10 12:01 | RADIOLOGY REPORT (SQ) ---
EXAM DESCRIPTION: CHEST SINGLE VIEW IMAGES COMPLETED DATE/TIME: 12/10/2019 10:42 am REASON FOR STUDY: hypotension/gi bleed. COMPARISON: 09/17/2019 EXAM PARAMETERS: NUMBER OF VIEWS: One view. TECHNIQUE: Single frontal radiographic view of the chest acquired. RADIATION DOSE: NA LIMITATIONS: None. FINDINGS: LUNGS AND PLEURA: No opacities, masses or pneumothorax. No pleural effusion. MEDIASTINUM AND HILAR STRUCTURES: No masses. Contour normal. HEART AND VASCULAR STRUCTURES: Heart normal in size. Normal vasculature. BONES: No acute findings. HARDWARE: None in the chest. OTHER: No other significant finding. IMPRESSION: NO ACUTE RADIOGRAPHIC FINDING IN THE CHEST. TECHNICAL DOCUMENTATION: JOB ID: [id number] 2010 [employer]- All Rights Reserved Reading location - IP/workstation name: [email or web address]
[2019-12-10] MEDS ORDERED: MORPHINE SULFATE 10 MG/ML INJ IV ONE ×3 (12:15→16:51)
[2019-12-10 12:29] LABS: ALBUMIN 2.6 g/dL (3.5-5.0); ALCOHOL < 10 mg/dL (NONE DETECTED); ALKALINE PHOSPHATASE 111 U/L (38-126); ANION GAP 7 (5-19); ASPARTATE AMINO TRANSFERASE 24 U/L (14-36); BILIRUBIN,DIRECT 0.3 mg/dL (0.0-0.4); BILIRUBIN,TOTAL 0.3 mg/dL (0.2-1.3); BLOOD UREA NITROGEN < 2 mg/dL (7-20); CARBON DIOXIDE 18 mmol/L (22-30); CHLORIDE 111 mmol/L (98-107); GLUCOSE 128 mg/dL (75-110); POTASSIUM 3.1 mmol/L (3.6-5.0); TOTAL PROTEIN 4.9 g/dL (6.3-8.2)
[2019-12-10 12:40] LABS: NT PRO BNP 172 pg/mL (<125)
[2019-12-10 12:42] LABS: TROPONIN I < 0.012 ng/mL
[2019-12-10] MEDS ORDERED: ONDANSETRON HCL INJ/PF 4 MG/2 ML SDV IV ONE ×2 (13:19→16:51)
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
--- NOTE | 2019-12-10 13:58 | RADIOLOGY REPORT (SQ) ---
EXAM DESCRIPTION: CTA ABDOMEN/PELVIS W WO IMAGES COMPLETED DATE/TIME: 12/10/2019 1:12 pm REASON FOR STUDY: lower gi bleed Rectal bleeding. Low abdominal pain/cramping. Back pain. History of gastric bypass, hernia repair, tumor removal liver, polyps removed. COMPARISON: CT abdomen and pelvis 10/07/2017, 09/20/2017, 07/03/2015 TECHNIQUE: CT scan of the abdomen and pelvis performed with and without intravenous contrast using h elical scanning technique with dynamic intravenous contrast injection. Images reviewed with lung, sof t tissue, and bone windows. Reconstructed coronal and sagittal MPR images reviewed. All images stored on PACS. Advanced 3D imaging as volume rendering, MIPS, SSD performed? yes All CT scanners at this facility use dose modulation, iterative reconstruction, and/or weight based d osing when appropriate to reduce radiation dose to as low as reasonably achievable (ALARA). [facility]: Dose Right [facility]: CareDose [facility]: Dose Right [facility]: Teradose 4D [facility]: Dashbid CONTRAST TYPE AND DOSE: contrast/concentration: Isovue 350.00 mmol/ml; Total Contrast Delivered: 99. 0 ml; Total Saline Delivered: 76.0 ml RENAL FUNCTION: Creatinine 0.62 LIMITATIONS: There is motion artifact. FINDINGS: NON-CONTRASTED IMAGING: No significant renal or bladder calcifications. Atherosclerotic c alcifications at the abdominal and its branches. POST-CONTRAST IMAGING: AORTA AND VESSELS: Atherosclerotic calcifications at the abdominal and its branches. The infrarenal abdominal aorta measures 2.5 cm in diameter, increased since the prior CT abdomen and pelvis 6. No evidence for acute dissection. Intramural thrombus with penetrating ulcerations at the infrar enal abdominal aorta. The celiac artery, the SMA, the bilateral renal arteries and the CARLOS are paten t. Atherosclerotic calcifications are noted at the ostia of the bilateral renal arteries. LUNG BASES: The evaluation of the lung bases is degraded by motion artifact. No consolidation or ple ural effusion. LIVER: Normal size. There is mild intrahepatic biliary ductal dilation. SPLEEN: Normal size. No focal lesions. PANCREAS: No masses. No significant calcifications. No adjacent inflammation or peripancreatic fluid collections. Pancreatic duct not dilated. GALLBLADDER: Surgically absent. The common bile duct is mildly dilated measuring 10 mm. ADRENAL GLANDS: The right adrenal gland is within normal limits. There is a 2.7 cm low-density nodul e at the left adrenal gland measuring less than 10 Hounsfield units on the precontrast images, most c onsistent with an adenoma. RIGHT KIDNEY AND URETER: No hydronephrosis or hydroureter. There is a 3 cm renal cyst. LEFT KIDNEY AND URETER: No hydronephrosis or hydroureter. RETROPERITONEUM: No retroperitoneal adenopathy, hemorrhage or masses. BOWEL AND PERITONEAL CAVITY: Postsurgical changes at the stomach and small bowel. No dilated bowel l oops to suggest obstruction. There is colonic diverticulosis with no CT evidence for acute diverticu litis. There is intraluminal linear hyperdensity at the distal transverse colon adjacent to a divert iculum, suggestive of active diverticular hemorrhage. APPENDIX: Normal. PELVIS: The pelvis is partially obscured by streak artifact from the bilateral hip prostheses. The urinary bladder is partially distended. The uterus is present. No free fluid. ABDOMINAL WALL: There are small fat containing bilateral inguinal hernias. BONY STRUCTURES: The patient is status post bilateral total hip arthroplasties. Multilevel degenerat hoda changes at the spine. 3-D IMAGING: Confirms the above findings. IMPRESSION: 1. Atherosclerotic disease. Ectatic infrarenal abdominal aorta measuring 2.5 cm with in tramural thrombus and penetrating ulcerations, increased since the prior CT abdomen and pelvis 016; given the increase in size, ongoing surveillance is recommended. No evidence for acute dissecti on. Atherosclerotic calcifications at the ostia of the bilateral renal arteries. 2. Colonic diverticulosis. Intraluminal linear hyperdensity at the distal transverse colon adjacent to a diverticulum, suggestive of active diverticular hemorrhage. 3. Status post cholecystectomy. Mild dilation of the biliary tree. COMMUNICATION The critical information above was relayed directly by me by telephone to Dr. Pino On 12/10/2019 at 13:40 hours with readback verification. TECHNICAL DOCUMENTATION: JOB ID: [id number] Quality ID # [id number]: Final reports with documentation of one or more dose reduction techniques (e.g., Au tomated exposure control, adjustment of the mA and/or kV according to patient size, use of iterative reconstruction technique) 2010 [employer]- All Rights Reserved Reading location - IP/workstation name: [email or web address]
[2019-12-10 14:06] LABS: ABSOLUTE EOSINOPHILS # (AUTO) 0.1 10^3/uL (0.0-0.6); ABSOLUTE LYMPHOCYTES (AUTO) 2.1 10^3/uL (0.5-4.7); ABSOLUTE MONOCYTES (AUTO) 0.5 10^3/uL (0.1-1.4); ABSOLUTE NEUT (AUTO) 4.4 10^3/uL (1.7-8.2); BASOPHILS % (AUTO) 0.5 % (0-2); EOSINOPHILS % (AUTO) 0.9 % (0-6); LYMPHOCYTES % (AUTO) 29.4 % (13-45); MEAN CORPUSCULAR HEMOGLOBIN 31.2 pg (27.0-33.4); MEAN CORPUSCULAR HGB CONC 34.5 g/dL (32.0-36.0); MEAN CORPUSCULAR VOLUME 90 fl (80-97); PLATELET COUNT 389 10^3/uL (150-450); RED CELL DISTRIBUTION WIDTH 21.6 % (11.5-14.0); SEGMENTED NEUTROPHILS % (AUTO) 62.2 % (42-78); TOTAL CELLS COUNTED % (AUTO) 100 %
[2019-12-10 14:10] LABS: HEMOGLOBIN 9.6 g/dL (12.0-15.5)
[2019-12-10] MEDS ORDERED: NORMAL SALINE 250 ML IV PRN (14:11)
[2019-12-10] MEDS: POTASSI CL 20 MEQ/50 ML RIDER 20 MEQ/50 ML RTUPB IV SCH ×2 (14:27→16:50)
--- NOTE | 2019-12-10 16:09 | PDOC CONSULTATION ---
Consultation Consult Date: 12/10/19 Provider Consulted: JACKIE BRITTON Consult reason:: Colonic diverticular bleeding History of Present Illness Admission Date/PCP: JEN CASTRO PA-C History of Present Illness: JOSUÉ MARIN is a 49 year old female history of COPD, gastric bypass in 2002, cholecystectomy, laparoscopic benign liver mass removal, pression, and anxiety, with a history of multiple episodes of lower gastrointestinal bleeding the last one a few years ago which was treated endoscopically with cauterization of a colonic bleeder. The patient cames to the emergency room complaining of a recent onset of lower gastrointestinal bleeding about this morning at 530. Since then, she has had multiple bouts of bloody bowel movements. CT scan angio of the abdomen pelvis done today reveals an active colonic bleeding mainly from the distal transverse colon proximal to the splenic flexure. Patient is currently receiving a unit of blood. Most recent H&H is 9.6 and 28, respectively. Past Medical History Cardiac Medical History: Reports: Congestive Heart Failure, Coronary Artery Disease, Myocardial Infarction, Hyperlipidema, Hypertension Pulmonary Medical History: Reports: Bronchitis, Pneumonia Neurological Medical History: Reports: Migraine, Seizures Endocrine Medical History: Reports: Diabetes Mellitus Type 2 GI Medical History: Reports: Diverticulitis, Gastroesophageal Reflux Disease Musculoskeltal Medical History: Reports: Arthritis Psychiatric Medical History: Reports: Depression, Post Traumatic Stress Disorder Hematology: Reports: Anemia Past Surgical History Past Surgical History: Reports: Cardiac Catheterization - Feb 2010-stent, Feb 2011-told 2 vessels had narrowing, no stent, Cholecystectomy, Coronary Stent - February,, Gastric Bypass Surgery - 2002, Herniorrhaphy, Orthopedic Surgery - Bilat knee fx. right hip. Social History Smoking Status: Current Every Day Smoker Electronic Cigarette use?: No Frequency of Alcohol Use: None Hx Recreational Drug Use: Yes Drugs: Marijuana Hx Prescription Drug Abuse: Yes Family History Family History: CAD, Malignancy - breast, ovarian, bone Parental Family History Reviewed: Yes - Malignancy Children Family History Reviewed: No Sibling(s) Family History Reviewed.: No Medication/Allergy Home Medications: Clonazepam [Klonopin 1 mg Tablet] 1 mg PO QID 02/03/17 Sertraline HCl [Zoloft 50 mg Tablet] 50 mg PO DAILY 08/14/17 Albuterol Sulfate [Ventolin Hfa 8 gm Mdi (1 Mdi/ER Disp)] 1 puff IN PRN PRN 06/26/19 Brexpiprazole [Rexulti] 3 mg PO DAILY 06/26/19 Buprenorphine HCl/Naloxone HCl [Suboxone 12 mg-3 mg Sl Film] 1 film SL DAILY 0 06/26/19 Prednisone [Deltasone 20 mg Tablet] 2 tab PO DAILY 5 Days #10 tablet 09/17/19 Allergies/Adverse Reactions: No Known Allergies Allergy (Verified 06/26/19 22:34) Physical Exam Vital Signs: Temp Pulse Resp BP Pulse Ox 97.4 F 85 14 90/47 L 97 12/10/19 15:54 12/10/19 15:54 12/10/19 15:54 12/10/19 15:54 12/10/19 15:54 Intake & Output 12/09/19 12/10/19 12/11/19 06:59 06:59 06:59 Intake Total 2300 Balance 2300 Weight 97.522 kg General appearance: PRESENT: mild distress, obese, other - Well Head exam: PRESENT: atraumatic, normocephalic Eye exam: PRESENT: EOMI Mouth exam: PRESENT: neck supple Neck exam: PRESENT: full ROM Respiratory exam: PRESENT: clear to auscultation hermann Cardiovascular exam: PRESENT: RRR GI/Abdominal exam: PRESENT: normal bowel sounds, soft, tenderness - Slightly tender in the epigastrium and left upper quadrant Results Laboratory Results: 12/10/19 13:56 12/10/19 11:44 12/10/19 12/10/19 12/10/19 11:05 11:05 11:05 WBC 8.4 RBC 4.00 Hgb 12.4 Hct 36.5 MCV 91 MCH 31.1 MCHC 34.0 RDW 21.8 H Plt Count 585 H Seg Neutrophils % 50.6 Sodium Cancelled Potassium Cancelled Chloride Cancelled Carbon Dioxide Cancelled Anion Gap Cancelled BUN Cancelled Creatinine Cancelled Est GFR ( Amer) Cancelled Est GFR (Non-Af Amer) Cancelled Glucose Cancelled Lactic Acid Calcium Cancelled Total Bilirubin Cancelled AST Cancelled Alkaline Phosphatase Cancelled Total Protein Cancelled Albumin Cancelled Lipase Cancelled Blood Type Cancelled Antibody Screen Cancelled 12/10/19 12/10/19 12/10/19 11:44 11:44 11:44 WBC RBC Hgb Hct MCV MCH MCHC RDW Plt Count Seg Neutrophils % Sodium 136.1 L Potassium 3.1 L Chloride 111 H Carbon Dioxide 18 L Anion Gap 7 BUN < 2 L Creatinine 0.62 Est GFR ( Amer) > 60 Est GFR (Non-Af Amer) Glucose 128 H Lactic Acid 2.1 Calcium 8.0 L Total Bilirubin 0.3 AST 24 Alkaline Phosphatase 111 Total Protein 4.9 L Albumin 2.6 L Lipase 46.2 Blood Type A NEGATIVE Antibody Screen POSITIVE 12/10/19 12/10/19 13:05 13:56 WBC Cancelled 7.0 RBC Cancelled 3.10 L Hgb Cancelled 9.6 L D Hct Cancelled 28.0 L MCV Cancelled 90 MCH Cancelled 31.2 MCHC Cancelled 34.5 RDW Cancelled 21.6 H Plt Count Cancelled 389 Seg Neutrophils % Cancelled 62.2 Sodium Potassium Chloride Carbon Dioxide Anion Gap BUN Creatinine Est GFR ( Amer) Est GFR (Non-Af Amer) Glucose Lactic Acid Calcium Total Bilirubin AST Alkaline Phosphatase Total Protein Albumin Lipase Blood Type Antibody Screen 12/10/19 12/10/19 11:05 11:44 Troponin I Cancelled < 0.012 NT-Pro-B Natriuret Pep Cancelled 172 H Impressions: Chest X-Ray 12/10/19 11:05 IMPRESSION: NO ACUTE RADIOGRAPHIC FINDING IN THE CHEST. Abdomen/Pelvis CTA 12/10/19 11:09 IMPRESSION: 1. Atherosclerotic disease. Ectatic infrarenal abdominal aorta measuring 2.5 cm with intramural thrombus and penetrating ulcerations, increased since the prior CT abdomen and pelvis 07/03/2015; given the increase in size, ongoing surveillance is recommended. No evidence for acute dissection. Atherosclerotic calcifications at the ostia of the bilateral renal arteries. 2. Colonic diverticulosis. Intraluminal linear hyperdensity at the distal transverse colon adjacent to a diverticulum, suggestive of active diverticular hemorrhage. 3. Status post cholecystectomy. Mild dilation of the biliary tree. Assessment & Plan - Diagnosis (1) Acute lower GI bleeding Is this a current diagnosis for this admission?: Yes - Plan Summary Plan Summary: Assessment: Recent onset of colonic diverticular bleeding CT scan abdomen pelvis done today reveals the bleeding originated from the d istal portion of the transverse colon Patient hemodynamically stable Most recent H&H 9.6 and 28, respectively Potassium 3.1 Abdominal tenderness in the epigastrium Plan: Patient will benefit from interventional radiology embolization of the bleeding vessel rather than surgery which may entitle a left hemicolectomy This procedure inherent morbidity and mortality in this patient, particularly in acute setting. Therefore, noninvasive intervention radiology embolization is preferable in such a setting Agree with transfusion of blood Patient accepted for transfer at [facility] where interventional radiology will attempt embolization of the bleeding vessel
[2019-12-10 16:51] VITALS: BP 88/64
--- NOTE | 2019-12-10 17:17 | RADIOLOGY REPORT (SQ) ---
EXAM DESCRIPTION: CHEST SINGLE VIEW IMAGES COMPLETED DATE/TIME: 12/10/2019 3:59 pm REASON FOR STUDY: rule out pneumo COMPARISON: Same date at 1130 hours. EXAM PARAMETERS: NUMBER OF VIEWS: One view. TECHNIQUE: Single frontal radiographic view of the chest acquired. RADIATION DOSE: NA LIMITATIONS: None. FINDINGS: LUNGS AND PLEURA: No opacities, masses or pneumothorax. No pleural effusion. MEDIASTINUM AND HILAR STRUCTURES: No masses. Contour normal. HEART AND VASCULAR STRUCTURES: Heart normal in size. Normal vasculature. BONES: No acute findings. HARDWARE: None in the chest. OTHER: No other significant finding. IMPRESSION: NO ACUTE RADIOGRAPHIC FINDING IN THE CHEST. TECHNICAL DOCUMENTATION: JOB ID: [id number] 2010 [employer] All Rights Reserved Reading location - IP/workstation name: [email or web address]
--- NOTE | 2019-12-10 18:31 | EKG REPORT ---
SEVERITY:- BORDERLINE ECG - SINUS TACHYCARDIA BORDERLINE T ABNORMALITIES, INFERIOR LEADS : Confirmed by: Ismael Thompson MD 10-Dec-2019 18:30:29
== END 2019-12-10 17:14 | disposition short-term general hospital (02) ==
LOC: ER 10:42
DX: K57.31 Diverticulosis of large intestine without perforation or abscess with bleeding (principal); K57.92 Diverticulitis of intestine, part unspecified, without perforation or abscess without bleeding; I74.09 Other arterial embolism and thrombosis of abdominal aorta; R00.0 Tachycardia, unspecified; I95.9 Hypotension, unspecified; R10.30 Lower abdominal pain, unspecified; M54.9 Dorsalgia, unspecified; R61 Generalized hyperhidrosis; I25.10 Atherosclerotic heart disease of native coronary artery without angina pectoris; F17.200 Nicotine dependence, unspecified, uncomplicated; I10 Essential (primary) hypertension; I25.2 Old myocardial infarction; E11.9 Type 2 diabetes mellitus without complications; Z95.5 Presence of coronary angioplasty implant and graft; Z98.84 Bariatric surgery status
CPT/HCPCS: 93005; 96376; 99285; 96361; 96375; 96365; 96367; 86900; 86901; 36415; 87040; 87045; 87205; 36430; 86870; 86850; 86922; 80307; 83605; 83690; 85025; 85610; 85730; 82270; 80053; 84484; 86920; 83880; 71045; 74174; 93010; 36556; P9016; J2270; J2405; J3480; J7030; J3370; J0692

== ENCOUNTER 2019-12-31 08:06 | Emergency (ER) | payer MEDICARE, MEDICAID ==
[2019-12-31] MEDS ORDERED: NORMAL SALINE 1000 ML 1,000 ML IV ONE (08:30)
[2019-12-31] MEDS ORDERED: ONDANSETRON HCL INJ/PF 4 MG/2 ML SDV IV ONE (08:33)
[2019-12-31] MEDS ORDERED: FENTANYL CITRATE INJ/PF 100 MCG/2 ML AMPUL IV ONE (08:33)
[2019-12-31 09:11] LABS: ABSOLUTE BASOPHILS # (AUTO) 0.1 10^3/uL (0.0-0.2); ABSOLUTE EOSINOPHILS # (AUTO) 0.4 10^3/uL (0.0-0.6); ABSOLUTE LYMPHOCYTES (AUTO) 1.5 10^3/uL (0.5-4.7); ABSOLUTE MONOCYTES (AUTO) 0.5 10^3/uL (0.1-1.4); ABSOLUTE NEUT (AUTO) 2.9 10^3/uL (1.7-8.2); BASOPHILS % (AUTO) 1.2 % (0-2); EOSINOPHILS % (AUTO) 7.2 % (0-6); HEMATOCRIT 33.2 % (36.0-47.0); HEMOGLOBIN 11.1 g/dL (12.0-15.5); LYMPHOCYTES % (AUTO) 27.6 % (13-45); MEAN CORPUSCULAR HEMOGLOBIN 32.7 pg (27.0-33.4); MEAN CORPUSCULAR HGB CONC 33.6 g/dL (32.0-36.0); MONOCYTES % (AUTO) 9.6 % (3-13); PLATELET COUNT 324 10^3/uL (150-450); RED CELL DISTRIBUTION WIDTH 23.3 % (11.5-14.0); SEGMENTED NEUTROPHILS % (AUTO) 54.4 % (42-78); TOTAL CELLS COUNTED % (AUTO) 100 %; WHITE BLOOD COUNT 5.3 10^3/uL (4.0-10.5)
[2019-12-31 09:16] LABS: MEAN CORPUSCULAR VOLUME 97 fl (80-97)
[2019-12-31 09:27] LABS: ALBUMIN 2.6 g/dL (3.5-5.0); ALKALINE PHOSPHATASE 129 U/L (38-126); ASPARTATE AMINO TRANSFERASE 25 U/L (14-36); BILIRUBIN,DIRECT 0.3 mg/dL (0.0-0.4); BILIRUBIN,TOTAL 0.5 mg/dL (0.2-1.3); BLOOD UREA NITROGEN 6 mg/dL (7-20); CALCIUM 8.3 mg/dL (8.4-10.2); CARBON DIOXIDE 25 mmol/L (22-30); CHLORIDE 112 mmol/L (98-107); GLUCOSE 79 mg/dL (75-110); POTASSIUM 4.1 mmol/L (3.6-5.0); TOTAL PROTEIN 5.7 g/dL (6.3-8.2)
[2019-12-31 09:28] LABS: ANION GAP 4 (5-19); INTERNATIONAL RATION (INR) 1.04; PROTHROMBIN TIME 13.8 SEC (11.4-15.4)
[2019-12-31 09:29] LABS: PARTIAL THROMBOPLASTIN TIME 38.7 SEC (23.5-35.8)
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
--- NOTE | 2019-12-31 10:49 | RADIOLOGY REPORT (SQ) ---
EXAM DESCRIPTION: CTA ABDOMEN/PELVIS W WO IMAGES COMPLETED DATE/TIME: 12/31/2019 10:25 am REASON FOR STUDY: rectal bleed COMPARISON: 12/10/2019 and 12/26/2017. TECHNIQUE: CT scan of the abdomen and pelvis performed with and without intravenous contrast. Images reviewed with lung, soft tissue, and bone windows. Reconstructed coronal and sagittal MPR images rev iewed. Delayed images for evaluation of possible gastrointestinal hemorrhage. All images stored on PA CS. All CT scanners at this facility use dose modulation, iterative reconstruction, and/or weight based d osing when appropriate to reduce radiation dose to as low as reasonably achievable (ALARA). [facility]: Dose Right [facility]: CareDose [facility]: Dose Right [facility]: Teradose 4D [facility]: NextUser CONTRAST TYPE AND DOSE: contrast/concentration: Isovue 350.00 mmol/ml; Total Contrast Delivered: 100 .0 ml; Total Saline Delivered: 89.0 ml RENAL FUNCTION: BUN 6 creatinine 0.71. RADIATION DOSE: CT Rad equipment meets quality standard of care and radiation dose reduction techniq ues were employed. CTDIvol: 20.1 - 34.0 mGy. DLP: 3353 mGy-cm.. LIMITATIONS: None. FINDINGS: NON-CONTRASTED IMAGING: No significant renal or bladder calcifications. No other significa nt organ calcifications. POST-CONTRASTED IMAGING: LOWER CHEST: No significant findings. No nodules or infiltrates. LIVER: Normal size. Diffuse fatty infiltration. No masses. No dilated ducts. SPLEEN: Normal size. No focal lesions. PANCREAS: No masses. No significant calcifications. No adjacent inflammation or peripancreatic fluid collections. Pancreatic duct not dilated. GALLBLADDER: Surgically absent. ADRENAL GLANDS: Left adrenal mass, unchanged. RIGHT KIDNEY AND URETER: Cortical cyst. No solid masses. No significant calcifications. No hydro nephrosis or hydroureter. LEFT KIDNEY AND URETER: No solid masses. No significant calcifications. No hydronephrosis or hydr oureter. AORTA AND VESSELS: No aneurysm. No dissection. Renal arteries, SMA, celiac without stenosis. RETROPERITONEUM: No retroperitoneal adenopathy, hemorrhage or masses. BOWEL AND PERITONEAL CAVITY: Previous colonic resection with ostomy in the right side of the abdomen. Previous gastric surgery. Colonic diverticulosis. No masses or inflammatory changes. No free flui d or peritoneal masses. No active contrast extravasation into the bowel lumen or other findings of ac tive gastrointestinal bleeding. APPENDIX: Normal. PELVIS: Limited visualization due to metallic artifact from bilateral hip prostheses No mass. No donna e fluid. Normal bladder. ABDOMINAL WALL: No masses. No hernias. BONES: No significant or acute findings. Chronic changes in the spine. Bilateral hip prostheses. OTHER: No other significant finding. IMPRESSION: 1. SURGICAL CHANGES. COLONIC DIVERTICULOSIS. NO CT EVIDENCE OF ACTIVE GASTROINTESTINAL HEMORRHAGE. 2. STABLE LEFT ADRENAL MASS, PRESUMABLY AN ADENOMA. 3. CORTICAL CYST IN THE RIGHT KIDNEY. 4. DIFFUSE FATTY INFILTRATION OF THE LIVER. 5. NO OTHER SIGNIFICANT FINDINGS. TECHNICAL DOCUMENTATION: JOB ID: [id number] Quality ID # [id number]: Final reports with documentation of one or more dose reduction techniques (e.g., Au tomated exposure control, adjustment of the mA and/or kV according to patient size, use of iterative reconstruction technique) 2010 [employer]- All Rights Reserved Reading location - IP/workstation name: [email or web address]
[2019-12-31 12:00] VITALS: BP 120/69
== END 2019-12-31 11:59 | disposition home or self-care (01) ==
LOC: ER 08:06
DX: K57.31 Diverticulosis of large intestine without perforation or abscess with bleeding (principal); Q61.01 Congenital single renal cyst; K76.0 Fatty (change of) liver, not elsewhere classified; E27.9 Disorder of adrenal gland, unspecified; R10.13 Epigastric pain; I25.10 Atherosclerotic heart disease of native coronary artery without angina pectoris; I10 Essential (primary) hypertension; E11.9 Type 2 diabetes mellitus without complications; Z90.49 Acquired absence of other specified parts of digestive tract; Z87.19 Personal history of other diseases of the digestive system; Z98.84 Bariatric surgery status; Z93.3 Colostomy status
CPT/HCPCS: 99285; 96360; 96361; 86900; 86901; 36415; 86870; 86850; 85025; 85610; 85730; 80053; 74174; J3010; J2405; J7030

== ENCOUNTER 2020-02-04 02:34 | Emergency (ER) | payer MEDICARE, MEDICAID ==
[2020-02-04] MEDS ORDERED: LIDOCAINE 2% URO-JET 5 ML KIT MM ONE ×2 (05:12→06:32)
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
[2020-02-04 05:51] LABS: ABSOLUTE EOSINOPHILS # (AUTO) 0.3 10^3/uL (0.0-0.6); ABSOLUTE LYMPHOCYTES (AUTO) 1.6 10^3/uL (0.5-4.7); ABSOLUTE MONOCYTES (AUTO) 0.5 10^3/uL (0.1-1.4); ABSOLUTE NEUT (AUTO) 3.1 10^3/uL (1.7-8.2); BASOPHILS % (AUTO) 0.9 % (0-2); EOSINOPHILS % (AUTO) 4.9 % (0-6); HEMATOCRIT 33.6 % (36.0-47.0); HEMOGLOBIN 11.2 g/dL (12.0-15.5); LYMPHOCYTES % (AUTO) 29.2 % (13-45); MEAN CORPUSCULAR HEMOGLOBIN 33.2 pg (27.0-33.4); MEAN CORPUSCULAR HGB CONC 33.4 g/dL (32.0-36.0); MEAN CORPUSCULAR VOLUME 99 fl (80-97); MONOCYTES % (AUTO) 8.5 % (3-13); PLATELET COUNT 351 10^3/uL (150-450); RED BLOOD COUNT 3.39 10^6/uL (3.72-5.28); RED CELL DISTRIBUTION WIDTH 16.6 % (11.5-14.0); SEGMENTED NEUTROPHILS % (AUTO) 56.5 % (42-78); TOTAL CELLS COUNTED % (AUTO) 100 %; WHITE BLOOD COUNT 5.5 10^3/uL (4.0-10.5)
[2020-02-04 06:00] VITALS: BP 138/77
[2020-02-04 06:05] LABS: ALBUMIN 3.1 g/dL (3.5-5.0); ALKALINE PHOSPHATASE 164 U/L (38-126); ANION GAP 8 (5-19); ASPARTATE AMINO TRANSFERASE 57 U/L (14-36); BILIRUBIN,DIRECT 0.1 mg/dL (0.0-0.4); BILIRUBIN,TOTAL 0.3 mg/dL (0.2-1.3); BLOOD UREA NITROGEN 8 mg/dL (7-20); CALCIUM 8.7 mg/dL (8.4-10.2); CARBON DIOXIDE 22 mmol/L (22-30); CHLORIDE 109 mmol/L (98-107); GLUCOSE 83 mg/dL (75-110); POTASSIUM 4.1 mmol/L (3.6-5.0); TOTAL PROTEIN 6.1 g/dL (6.3-8.2)
== END 2020-02-04 06:44 | disposition home or self-care (01) ==
LOC: ER 02:34
DX: Z43.1 Encounter for attention to gastrostomy (principal); I50.9 Heart failure, unspecified; I11.0 Hypertensive heart disease with heart failure; F17.200 Nicotine dependence, unspecified, uncomplicated; I25.10 Atherosclerotic heart disease of native coronary artery without angina pectoris; E78.00 Pure hypercholesterolemia, unspecified; I25.2 Old myocardial infarction
CPT/HCPCS: 99283; 36415; 85025; 80053; A9270; J3490